=== PATIENT | female | born 1965 | race Caucasian/White ===

== ENCOUNTER 2016-05-13 15:13 | Emergency (ER) | payer OTHER ==
[2016-05-13 15:22] VITALS: RESP 18
[2016-05-13] MEDS ORDERED: diphenhydrAMINE 50 MG/ML 1 ML VIAL IVP STA (16:22)
[2016-05-13] MEDS ORDERED: SODIUM CHLORIDE 0.9% 1,000 ML IV STA (16:22)
[2016-05-13] MEDS ORDERED: MECLIZINE 12.5 MG TAB PO STA (16:22)
[2016-05-13] MEDS ORDERED: SODIUM CHLORIDE 0.9% 1,000 ML IV ONE (16:27)
--- NOTE | 2016-05-13 16:54 | ED ---
Dizziness HPI - General Chief Complaint: Dizziness Stated Complaint: Vertigo Time Seen by Provider: 05/13/16 16:09 Source: patient, RN notes reviewed, old records reviewed Mode of arrival: wheelchair Limitations: no limitations - History of Present Illness Initial Comments: Patient is a 50-year-old female presenting to the with chief complaint of vertigo-like dizziness for approximately 2 days. Patient reports that with certain movements she feels like the room is spinning. Patient reports that this is happened before. She reports that she took her meclizine however symptoms continue to persist. Patient has past medical history for hypertension , diabetes. She reports she can feel nauseated with the vertigo. She states she has not seen an ENT specialist. She reports some fullness in her ears and sinus congestion. She denies fever, chills, vomiting, chest pain, shortness of breath , changes in bowel or bladder habits. Patient denies ear pain, decreased hearing , sensitivity to light, headache. - Related Data Home Medications Medication Instructions Recorded Confirmed ALPRAZolam [Xanax] 2 mg PO BID PRN 05/13/16 05/13/16 Albuterol Inhaler [Ventolin Hfa 1 - 2 puff INHALATION Q6HR PRN 05/13/16 05/13/16 Inhaler] Cetirizine HCl [Zyrtec] 10 mg PO DAILY 05/13/16 05/13/16 Ergocalciferol (Vitamin D2) 50,000 unit PO Q7D 05/13/16 05/13/16 [Vitamin D2] FLUoxetine HCL [PROzac] 20 mg PO BID 05/13/16 05/13/16 Fluticasone Nasal [place] [Flonase 2 spr EA NOSTRIL DAILY 05/13/16 05/13/16 Nasal [place]] Glimepiride [Amaryl] 1 mg PO DAILY 05/13/16 05/13/16 HYDROcodone/APAP 10-325MG [[place] 1 tab PO TID 05/13/16 05/13/16 10-325] Ipratropium [place] [Atrovent Hfa] 2 puff INHALATION RT-QID 05/13/16 05/13/16 Losartan/Hydrochlorothiazide 1 tab PO DAILY 05/13/16 05/13/16 [Hyzaar 100-12.5 Tablet] Meclizine [Antivert] 25 mg PO DAILY PRN 05/13/16 05/13/16 Methocarbamol [Robaxin] 1,500 mg PO DAILY PRN 05/13/16 05/13/16 Naproxen 1,000 mg PO Q12HR PRN 05/13/16 05/13/16 Nicotine [Nicoderm Cq] 1 patch TRANSDERM DAILY 05/13/16 05/13/16 Nystatin [Nystop] 1 applic TOPICAL BID PRN 05/13/16 05/13/16 Omeprazole [PriLOSEC] 20 mg PO DAILY 05/13/16 05/13/16 Oxybutynin Chloride [Ditropan] 5 mg PO BID PRN 05/13/16 05/13/16 Prochlorperazine [Compazine] 5 mg PO Q8HR PRN 05/13/16 05/13/16 QUEtiapine [SEROquel] 400 mg PO HS 05/13/16 05/13/16 Ranitidine HCl [Zantac] 150 mg PO BID 05/13/16 05/13/16 Rivaroxaban [Xarelto] 15 mg PO DAILY 05/13/16 05/13/16 Rizatriptan Benzoate [Maxalt] 10 mg PO Q48H PRN 05/13/16 05/13/16 Topiramate 100 mg PO DAILY 05/13/16 05/13/16 buPROPion SR [Wellbutrin Sr] 150 mg PO BID 05/13/16 05/13/16 busPIRone HCL 15 mg PO BID 05/13/16 05/13/16 metFORMIN HCL [Glucophage] 850 mg PO TID 05/13/16 05/13/16 rOPINIRole HCL [Requip] 0.25 mg PO HS 05/13/16 05/13/16 Previous Rx's Medication Instructions Recorded Diazepam [Valium] 5 mg PO BID #4 tab 05/13/16 Loratadine-Pseudoeph 5-120 mg 1 each PO BID #12 tab.er.12h 05/13/16 [Claritin-D 12 HR] diphenhydrAMINE [Benadryl] 25 mg PO QID PRN #12 capsule 05/13/16 Allergies Allergy/AdvReac Type Severity Reaction Status Date / Time RIGO Inhibitors Allergy Unknown Verified 05/13/16 16:14 cephalexin [From Keflex] Allergy Unknown Verified 05/13/16 16:14 cyclobenzaprine Allergy Unknown Verified 05/13/16 16:14 [From Flexeril] dicyclomine [From Bentyl] Allergy Unknown Verified 05/13/16 16:14 gabapentin Allergy Unknown Verified 05/13/16 16:14 ketorolac [From Toradol] Allergy Unknown Verified 05/13/16 16:14 metoclopramide [From Reglan] Allergy Unknown Verified 05/13/16 16:14 ondansetron AdvReac Interacts Verified 05/13/16 16:14 [From Zofran (as with hydrochloride)] Seroquel Ammonia Scent AdvReac Fainting Uncoded 05/13/16 15:25 Review of Systems ROS Statement: Those systems with pertinent positive or pertinent negative responses have been documented in the HPI. ROS Other: All systems not noted in ROS Statement are negative. Past Medical History Past Medical History: Diabetes Mellitus, Hypertension Additional Past Medical History / Comment(s): Vertigo; Migraines History of Any Multi-Drug Resistant Organisms: None Reported Additional Past Surgical History / Comment(s): Oral surgery Past Psychological History: Anxiety, Bipolar, Depression Smoking Status: Current every day smoker Past Alcohol Use History: None Reported Past Drug Use History: None Reported General Exam - General Exam Comments Initial Comments: Patient is a morbidly obese 50 year old female. Limitations: no limitations General appearance: alert, in no apparent distress Head exam: Present: atraumatic, normocephalic, normal inspection Eye exam: Present: normal appearance, PERRL, EOMI, nystagmus (horizontal nystagmus with left lateral gaze. ). Absent: scleral icterus, conjunctival injection, periorbital swelling ENT exam: Present: mucous membranes moist. Absent: normal exam, TM's normal bilaterally (mild fluid in bilateral ears. No evidence of erythema. ) Neck exam: Present: normal inspection. Absent: tenderness, meningismus, lymphadenopathy Respiratory exam: Present: normal lung sounds bilaterally. Absent: respiratory distress, wheezes, rales, rhonchi, stridor Cardiovascular Exam: Present: regular rate, normal rhythm, normal heart sounds. Absent: systolic murmur, diastolic murmur, rubs, gallop, clicks Extremities exam: Present: normal inspection, full ROM, normal capillary refill. Absent: tenderness, pedal edema, joint swelling, calf tenderness Back exam: Present: normal inspection Neurological exam: Present: alert, oriented X3, CN II-XII intact Psychiatric exam: Present: normal affect, normal mood Skin exam: Present: warm, dry, intact, normal color. Absent: rash Course Vital Signs 05/13/16 05/13/16 15:18 19:19 Temperature 97.8 F 97.5 F L Pulse Rate 91 76 Respiratory 18 18 Rate Blood Pressure 143/82 144/79 O2 Sat by Pulse 98 97 Oximetry Medical Decision Making - Medical Decision Making Patient is a 50 year old female with 2 days of vertigo dizziness with certain movements. Patient does have horizontal nystagmus with left lateral gaze. Patient was given IV fluids, benadryl and meclinze. Patient reports that this has helped with her vertigo somewhat and seems to have lessened. Given patients medical history EKG, and labs were obtained and are all negative. CT brain was negative. Patient case discussed with Dr. Jesus. Patient will be discarged with nausea medication, Valium, and a decongestant for her ear pressure and fluid. Patient was instructed on return parameters. Patient understands treatment plan and will comply. Patient also given eNT referral. - Lab Data Result diagrams: 05/13/16 17:16 05/13/16 17:16 Lab Results 05/13/16 05/13/16 05/13/16 Range/Units 17:16 17:16 17:16 WBC 8.6 (3.8-10.6) k/uL RBC 4.41 (3.80-5.40) m/uL Hgb 13.3 (11.4-16.0) gm/dL Hct 39.2 (34.0-46.0) % MCV 89.0 (80.0-100.0) fL MCH 30.1 (25.0-35.0) pg MCHC 33.8 (31.0-37.0) g/dL RDW 13.8 (11.5-15.5) % Plt Count 213 (150-450) k/uL Neutrophils % 67 % Lymphocytes % 25 % Monocytes % 4 % Eosinophils % 3 % Basophils % 0 % Neutrophils # 5.7 (1.3-7.7) k/uL Lymphocytes # 2.1 (1.0-4.8) k/uL Monocytes # 0.4 (0-1.0) k/uL Eosinophils # 0.3 (0-0.7) k/uL Basophils # 0.0 (0-0.2) k/uL PT (9.0-12.0) sec INR (<1.1) APTT (22.0-30.0) sec Sodium 142 (137-145) mmol/L Potassium 3.7 (3.5-5.1) mmol/L Chloride 109 H (98-107) mmol/L Carbon Dioxide 22 (22-30) mmol/L Anion Gap 11 mmol/L BUN 16 (7-17) mg/dL Creatinine 0.90 (0.52-1.04) mg/dL Est GFR (MDRD) Af Amer >60 (>60 ml/min/1.73 sqM) Est GFR (MDRD) Non-Af >60 (>60 ml/min/1.73 sqM) Glucose 108 H (74-99) mg/dL Calcium 9.1 (8.4-10.2) mg/dL Magnesium 1.9 (1.6-2.3) mg/dL Total Creatine Kinase 105 (30-135) U/L CK-MB (CK-2) 1.1 (0.0-2.4) ng/mL CK-MB (CK-2) Rel Index 1.0 Troponin I <0.012 (0.000-0.034) ng/mL 05/13/16 Range/Units 17:16 WBC (3.8-10.6) k/uL RBC (3.80-5.40) m/uL Hgb (11.4-16.0) gm/dL Hct (34.0-46.0) % MCV (80.0-100.0) fL MCH (25.0-35.0) pg MCHC (31.0-37.0) g/dL RDW (11.5-15.5) % Plt Count (150-450) k/uL Neutrophils % % Lymphocytes % % Monocytes % % Eosinophils % % Basophils % % Neutrophils # (1.3-7.7) k/uL Lymphocytes # (1.0-4.8) k/uL Monocytes # (0-1.0) k/uL Eosinophils # (0-0.7) k/uL Basophils # (0-0.2) k/uL PT 10.1 (9.0-12.0) sec INR 1.0 (<1.1) APTT 23.1 (22.0-30.0) sec Sodium (137-145) mmol/L Potassium (3.5-5.1) mmol/L Chloride (98-107) mmol/L Carbon Dioxide (22-30) mmol/L Anion Gap mmol/L BUN (7-17) mg/dL Creatinine (0.52-1.04) mg/dL Est GFR (MDRD) Af Amer (>60 ml/min/1.73 sqM) Est GFR (MDRD) Non-Af (>60 ml/min/1.73 sqM) Glucose (74-99) mg/dL Calcium (8.4-10.2) mg/dL Magnesium (1.6-2.3) mg/dL Total Creatine Kinase (30-135) U/L CK-MB (CK-2) (0.0-2.4) ng/mL CK-MB (CK-2) Rel Index Troponin I (0.000-0.034) ng/mL 05/13/16 17:30 EKG shows normal sinus rhythm. Ventricular rate 76 bpm. We'll give her milliseconds. QRS duration 88 ms. QT/QTc is 422/474 ms. No evidence of ST elevation or T-wave inversion. No evidence of atrial or ventricular arrhythmias. - Radiology Data Radiology results: report reviewed CT of brain shows a parietal lobe atrophy. No evidence of any acute process. No evidence of midline shift. Disposition Clinical Impression: Vertigo Disposition: HOME SELF-CARE Condition: Good Instructions: Dizziness (ED), Vertigo (ED) Additional Instructions: Patient instructed to follow-up with ENT specialist. Follow-up with primary care physician as well. Return to the [facility] if any alarming signs or symptoms occur. Take medications as prescribed. Prescriptions: Diazepam [Valium] 5 mg PO BID #4 tab Loratadine-Pseudoeph 5-120 mg [Claritin-D 12 HR] 1 each PO BID #12 tab.er.12h diphenhydrAMINE [Benadryl] 25 mg PO QID PRN #12 capsule PRN Reason: Vertigo Referrals: Raeann Connelly MD [Primary Care Provider] - 1-2 days Malcom Walter MD [STAFF PHYSICIAN] - 1-2 days Rand Lopez MD [REFERRING] - 1-2 days Time of Disposition: 18:52
[2016-05-13 17:31] LABS: Basophils % (A) 0 %; CH 30.7; CHCM 34.7; Eosinophils # (A) 0.3 k/uL (0-0.7); Eosinophils % (A) 3 %; HCT 39.2 % (34.0-46.0); HDW 2.82; HGB 13.3 gm/dL (11.4-16.0); Luc % (Auto) 1; Lymphocytes # (A) 2.1 k/uL (1.0-4.8); Lymphocytes % (A) 25 %; MCH 30.1 pg (25.0-35.0); MCHC 33.8 g/dL (31.0-37.0); Monocytes # (A) 0.4 k/uL (0-1.0); Monocytes % (A) 4 %; Neutrophils # (A) 5.7 k/uL (1.3-7.7); Neutrophils % (A) 67 %; RBC 4.41 m/uL (3.80-5.40); RDW 13.8 % (11.5-15.5); WBC 8.6 k/uL (3.8-10.6); WBC (Perox) 8.75
[2016-05-13 17:36] LABS: Partial Thromboplastin Time 23.1 sec (22.0-30.0); Prothrombin Time 10.1 sec (9.0-12.0)
[2016-05-13 17:37] LABS: Anion Gap 11 mmol/L; Blood Urea Nitrogen 16 mg/dL (7-17); Calcium 9.1 mg/dL (8.4-10.2); Carbon Dioxide 22 mmol/L (22-30); Chloride 109 mmol/L (98-107); Glucose 108 mg/dL (74-99); Magnesium 1.9 mg/dL (1.6-2.3); Non-African American GFR(MDRD) >60 (>60 ml/min/1.73 sqM); Potassium 3.7 mmol/L (3.5-5.1); Sodium 142 mmol/L (137-145)
--- NOTE | 2016-05-13 17:51 | CT ---
EXAMINATION TYPE: CT brain wo con DATE OF EXAM: 05/13/2016 5:45 PM COMPARISON: NONE HISTORY: Pt states of dizziness today. CT DLP: 1198 mGycm Automated exposure control for dose reduction was used. FINDINGS: There is no mass effect or midline shift. There is no sign of intracranial hemorrhage. Calvarium is i ntact. Ventricles of normal size. There is mild parietal lobe cortical atrophy. IMPRESSION: Parietal lobe cortical atrophy. No acute intracranial abnormality.
[2016-05-13 17:53] LABS: Creatine Kinase 105 U/L (30-135)
[2016-05-13 18:07] LABS: Creatine Kinase MB 1.1 ng/mL (0.0-2.4); Troponin I <0.012 ng/mL (0.000-0.034)
--- NOTE | 2016-05-13 18:16 | XR ---
EXAMINATION TYPE: XR chest 2V DATE OF EXAM: 05/13/2016 6:05 PM COMPARISON: EXAMINATION TYPE: XR chest 2V DATE OF EXAM: 05/13/2016 6:05 PM COMPARISON: NONE HISTORY: Dizziness TECHNIQUE: Frontal and lateral views of the chest are obtained. FINDINGS: Heart and mediastinum are normal. Lungs are clear. Diaphragm is normal. Bony thorax is int act. Pulmonary vascularity is normal. IMPRESSION: Normal chest
[2016-05-13 19:21] VITALS: BP 144/79; PULSE 76; TEMP 97.5
== END 2016-05-13 19:21 | disposition home or self-care (01) ==
LOC: EC 15:13
DX: R42 Dizziness and giddiness (principal); H55.00 Unspecified nystagmus; H93.93 Unspecified disorder of ear, bilateral; E11.9 Type 2 diabetes mellitus without complications; I10 Essential (primary) hypertension; F41.9 Anxiety disorder, unspecified; G43.909 Migraine, unspecified, not intractable, without status migrainosus; F31.9 Bipolar disorder, unspecified; Z79.899 Other long term (current) drug therapy; Z79.51 Long term (current) use of inhaled steroids; Z79.891 Long term (current) use of opiate analgesic; Z79.84 Long term (current) use of oral hypoglycemic drugs; Z79.02 Long term (current) use of antithrombotics/antiplatelets; Z88.1 Allergy status to other antibiotic agents; Z88.8 Allergy status to other drugs, medicaments and biological substances; Z91.048 Other nonmedicinal substance allergy status; F17.200 Nicotine dependence, unspecified, uncomplicated; E66.01 Morbid (severe) obesity due to excess calories; Z68.41 Body mass index [BMI] 40.0-44.9, adult
CPT/HCPCS: 36415; 93005; 80048; 82550; 82553; 83735; 84484; 85025; 85610; 85730; 71020; 70450; 96374; 96361 ×2; 99285; J1200

== ENCOUNTER 2016-08-21 12:29 | Emergency (ER) | payer OTHER ==
[2016-08-21 12:50] VITALS: RESP 18
[2016-08-21 15:19] VITALS: PULSE 88; TEMP 98.8
[2016-08-21] MEDS ORDERED: diphenhydrAMINE 50 MG CAP PO STA (15:33)
[2016-08-21] MEDS ORDERED: MECLIZINE 12.5 MG TAB PO STA (15:34)
--- NOTE | 2016-08-21 15:42 | ED ---
General Adult HPI - General Chief complaint: Neuro Symptoms/Deficit Stated complaint: Tingling sensation on face, headache Time Seen by Provider: 08/21/16 15:11 Source: patient, RN notes reviewed Mode of arrival: wheelchair Limitations: physical limitation - History of Present Illness Initial comments: Patient is a 50-year-old female presents to the emergency room for evaluation of facial tingling. Patient states she woke up this morning with pins and needle sensation over face and head. Patient also states she began having a migraine. Patient states she has a history of migraines. Patient states that she took her normal migraine medication with relief of the headache. Patient states she is having 2 out of 10 headache at this time. Patient states she is still experiencing the tingling sensation. Patient denies weakness. Patient denies changes in vision. Patient denies changes in hearing. Patient denies ringing in ears. Patient states she is dizzy. Patient states she has a history of vertigo. Patient states she took an Antivert this morning when she woke up. Patient does admit to tingling in her fingers but does state that she has peripheral neuropathy from diabetes. Patient denies neck pain. Patient denies chest pain, shortness of breath. Patient denies fevers or chills. Patient denies recent head trauma. Patient denies recent changes in medications. - Related Data Home Medications Medication Instructions Recorded Confirmed ALPRAZolam [Xanax] 2 mg PO BID PRN 05/13/16 08/21/16 Cetirizine HCl [Zyrtec] 10 mg PO DAILY PRN 05/13/16 08/21/16 Ergocalciferol (Vitamin D2) 50,000 unit PO MO 05/13/16 08/21/16 [Vitamin D2] Fluticasone Nasal [place] [Flonase 2 spr EA NOSTRIL DAILY PRN 05/13/16 08/21/16 Nasal [place]] Glimepiride [Amaryl] 1 mg PO W/BRKFST 05/13/16 08/21/16 HYDROcodone/APAP 10-325MG [[place] 1 tab PO TID PRN 05/13/16 08/21/16 10-325] Losartan/Hydrochlorothiazide 1 tab PO DAILY 05/13/16 08/21/16 [Hyzaar 100-12.5 Tablet] Meclizine [Antivert] 25 mg PO TID PRN 05/13/16 08/21/16 Methocarbamol [Robaxin] 1,500 mg PO DAILY PRN 05/13/16 08/21/16 Naproxen 500 mg PO Q12HR PRN 05/13/16 08/21/16 Omeprazole [PriLOSEC] 20 mg PO DAILY 05/13/16 08/21/16 Prochlorperazine [Compazine] 5 mg PO Q6H PRN 05/13/16 08/21/16 QUEtiapine [SEROquel] 400 mg PO HS 05/13/16 08/21/16 Ranitidine HCl [Zantac] 150 mg PO BID 05/13/16 08/21/16 buPROPion SR [Wellbutrin Sr] 300 mg PO HS 05/13/16 08/21/16 metFORMIN HCL [Glucophage] 850 mg PO TID 05/13/16 08/21/16 rOPINIRole HCL [Requip] 0.75 mg PO HS 05/13/16 08/21/16 FLUoxetine HCL [PROzac] 40 mg PO HS 08/21/16 08/21/16 Loperamide HCl [Imodium A-D] 6 mg PO DAILY PRN 08/21/16 08/21/16 Megestrol [Megace] 40 mg PO DAILY PRN 08/21/16 08/21/16 Rizatriptan Benzoate [Maxalt [employer]] 10 mg PO BID PRN 08/21/16 08/21/16 Topiramate [Topamax] 200 mg PO QA 08/21/16 08/21/16 busPIRone HCL [Buspar] 30 mg PO HS 08/21/16 08/21/16 diphenhydrAMINE [Benadryl] 25 mg PO BID PRN 08/21/16 08/21/16 diphenhydrAMINE [Benadryl] 25 mg PO HS 08/21/16 08/21/16 Allergies Allergy/AdvReac Type Severity Reaction Status Date / Time dicyclomine [From Bentyl] Allergy Lip Verified 08/21/16 16:15 Swelling gabapentin Allergy Lip Verified 08/21/16 16:15 Swelling RIGO Inhibitors AdvReac Cold Verified 08/21/16 16:15 Symptoms cephalexin [From Keflex] AdvReac Flu Verified 08/21/16 16:15 Symptoms cyclobenzaprine AdvReac Extreme Verified 08/21/16 16:15 [From Flexeril] Sedation ketorolac [From Toradol] AdvReac Extreme Verified 08/21/16 16:15 Sedation metoclopramide [From Reglan] AdvReac Shivering/Gets Verified 08/21/16 16:15 Extremely Cold ondansetron AdvReac Interacts Verified 08/21/16 16:15 [From Zofran (as with hydrochloride)] Seroquel Ammonia Scent AdvReac Fainting Uncoded 08/21/16 12:50 Review of Systems ROS Statement: Those systems with pertinent positive or pertinent negative responses have been documented in the HPI. ROS Other: All systems not noted in ROS Statement are negative. Past Medical History Past Medical History: Diabetes Mellitus, Hypertension Additional Past Medical History / Comment(s): Vertigo; Migraines History of Any Multi-Drug Resistant Organisms: None Reported Past Surgical History: No Surgical Hx Reported Additional Past Surgical History / Comment(s): Oral surgery Past Psychological History: Anxiety, Bipolar, Depression Smoking Status: Former smoker Past Alcohol Use History: None Reported Past Drug Use History: None Reported General Exam - General Exam Comments Initial Comments: Sitting in exam room, no distress. Limitations: physical limitation General appearance: alert, in no apparent distress Head exam: Present: atraumatic, normocephalic, normal inspection Eye exam: Present: normal appearance ENT exam: Present: normal exam Neck exam: Present: normal inspection Respiratory exam: Present: normal lung sounds bilaterally. Absent: respiratory distress Cardiovascular Exam: Present: regular rate, normal rhythm, normal heart sounds Extremities exam: Present: normal inspection Back exam: Present: normal inspection Neurological exam: Present: alert, oriented X3, CN II-XII intact, normal gait Expanded Patient oriented to: Present: person, place, time Speech: Present: fluid speech Cranial nerves: EOM's Intact: Normal, Facial Sensation: Normal Sensory exam: Upper Extremity Light Touch: Normal, Lower Extremity Light Touch: Normal Motor strength exam: RUE: 5, LUE: 5, RLE: 5, LLE: 5 Eye Response: (4) open spontaneously Motor Response: (6) obeys commands Verbal Response: (5) oriented Psychiatric exam: Present: normal affect, normal mood Skin exam: Present: warm, dry, intact, normal color. Absent: rash Course Vital Signs 08/21/16 08/21/16 08/21/16 12:45 15:16 16:47 Temperature 100.0 F H 98.8 F Pulse Rate 91 88 88 Respiratory 18 18 18 Rate Blood Pressure 129/60 134/69 124/77 O2 Sat by Pulse 97 96 96 Oximetry 08/21/16 17:04 Temperature 98.8 F Pulse Rate 88 Respiratory 18 Rate Blood Pressure 124/77 O2 Sat by Pulse 96 Oximetry Medical Decision Making - Medical Decision Making Patient is a 50-year-old female presents to the emergency room for evaluation of facial tingling. Patient was complaining of a migraine headache earlier but states that has subsided. Patient also complaining of dizziness. Patient has a history of vertigo. Patient was given Antivert states she is feeling better. Patient has no neuro deficits. Patient has no facial weakness. Patient has no unilateral weakness. Brain CT shows no acute findings. Patient states she is now feeling better and would like to be discharged home. Advised to follow- up with primary care provider for reevaluation. Patient states she understands everything that was discussed with her. Return parameters discussed. Case discussed with Dr. Pham. - Radiology Data Radiology results: report reviewed, image reviewed Disposition Clinical Impression: Facial paresthesia Disposition: HOME SELF-CARE Condition: Good Instructions: Paresthesia (ED) Additional Instructions: Continue with at home medications as needed. Please follow up with primary care provider in 1-2 days for reevaluation. If any new symptom arises or symptoms worsen, return to ER as soon as possible. Referrals: Rand Lopez MD [Primary Care Provider] - 1-2 days Time of Disposition: 16:46
--- NOTE | 2016-08-21 16:18 | CT ---
EXAMINATION TYPE: CT brain wo con DATE OF EXAM: 08/21/2016 3:58 PM COMPARISON: 05/13/2016 HISTORY: 50-year-old female with tingling in face and migraine. TECHNIQUE: Examination was done in axial plane without intravenous contrast. Coronal and sagittal r econstructions performed. CT DLP: 1122.00 mGycm Automated exposure control for dose reduction was used. FINDINGS: Redemonstrated moderate cortical atrophy secondary sulcal prominence. Mild ventricular prominence is also unchanged likely reflecting central cerebral volume loss. A 1.3 cm extra-axial area of nodular calcification along the superior right parietal convexity could represent dystrophic dural calcification or a meningioma. There is no evidence of acute intracranial hemorrhage, acute ischemic changes, mass effect, or extra -axial fluid collection. There is no effacement of cerebral sulci or basal subarachnoid cisterns. T here is no hydrocephalus. There is no midline shift. Ramos-white matter distinction is preserved. A 1 cm left paramedian superior frontal scalp lesion is unchanged and can be correlated clinically. Mild mucosal thickening left ethmoid air cells. Leftward nasal septal deviation. Orbits and globes ar e intact. Mastoid air cells well pneumatized. IMPRESSION: 1. No acute intracranial abnormality seen. Stable moderate atrophy with secondary sulcal prominence. 2. Stable 1.3 cm extra-axial calcification along the superior right parietal convexity could represen t dystrophic dural calcification or a small incidental meningioma. 3. A 1 cm left paramedian superior frontal scalp lesion is unchanged and may represent a sebaceous cy st. Clinical correlate.
[2016-08-21 16:49] VITALS: BP 124/77
== END 2016-08-21 17:05 | disposition home or self-care (01) ==
LOC: EC 12:29
DX: R20.2 Paresthesia of skin (principal); R51 Headache; R42 Dizziness and giddiness; E11.40 Type 2 diabetes mellitus with diabetic neuropathy, unspecified; I10 Essential (primary) hypertension; F31.9 Bipolar disorder, unspecified; Z86.69 Personal history of other diseases of the nervous system and sense organs; Z87.891 Personal history of nicotine dependence; Z88.1 Allergy status to other antibiotic agents; Z88.5 Allergy status to narcotic agent; Z88.8 Allergy status to other drugs, medicaments and biological substances; Z79.84 Long term (current) use of oral hypoglycemic drugs; Z79.899 Other long term (current) drug therapy
CPT/HCPCS: 70450; 99284

== ENCOUNTER 2016-09-13 14:30 | Emergency (ER) | payer OTHER ==
--- NOTE | 2016-09-13 16:30 | ED ---
General Adult HPI - General Chief complaint: GI Bleed Stated complaint: Blood in stool Time Seen by Provider: 09/13/16 16:15 Source: patient, RN notes reviewed, old records reviewed Mode of arrival: ambulatory Limitations: no limitations - History of Present Illness Initial comments: Chief complaint and history of present illness a 50-year-old female reports that she's had some rectal bleeding after having had a hard stool earlier in the day. No other complaints - Related Data Home Medications Medication Instructions Recorded Confirmed ALPRAZolam [Xanax] 2 mg PO BID PRN 05/13/16 08/21/16 Cetirizine HCl [Zyrtec] 10 mg PO DAILY PRN 05/13/16 08/21/16 Ergocalciferol (Vitamin D2) 50,000 unit PO MO 05/13/16 08/21/16 [Vitamin D2] Fluticasone Nasal [place] [Flonase 2 spr EA NOSTRIL DAILY PRN 05/13/16 08/21/16 Nasal [place]] Glimepiride [Amaryl] 1 mg PO W/BRKFST 05/13/16 08/21/16 HYDROcodone/APAP 10-325MG [[place] 1 tab PO TID PRN 05/13/16 08/21/16 10-325] Losartan/Hydrochlorothiazide 1 tab PO DAILY 05/13/16 08/21/16 [Hyzaar 100-12.5 Tablet] Meclizine [Antivert] 25 mg PO TID PRN 05/13/16 08/21/16 Methocarbamol [Robaxin] 1,500 mg PO DAILY PRN 05/13/16 08/21/16 Naproxen 500 mg PO Q12HR PRN 05/13/16 08/21/16 Omeprazole [PriLOSEC] 20 mg PO DAILY 05/13/16 08/21/16 Prochlorperazine [Compazine] 5 mg PO Q6H PRN 05/13/16 08/21/16 QUEtiapine [SEROquel] 400 mg PO HS 05/13/16 08/21/16 Ranitidine HCl [Zantac] 150 mg PO BID 05/13/16 08/21/16 buPROPion SR [Wellbutrin Sr] 300 mg PO HS 05/13/16 08/21/16 metFORMIN HCL [Glucophage] 850 mg PO TID 05/13/16 08/21/16 rOPINIRole HCL [Requip] 0.75 mg PO HS 05/13/16 08/21/16 FLUoxetine HCL [PROzac] 40 mg PO HS 08/21/16 08/21/16 Loperamide HCl [Imodium A-D] 6 mg PO DAILY PRN 08/21/16 08/21/16 Megestrol [Megace] 40 mg PO DAILY PRN 08/21/16 08/21/16 Rizatriptan Benzoate [Maxalt COMMUNITY SERVICE MANAGER] 10 mg PO BID PRN 08/21/16 08/21/16 Topiramate [Topamax] 200 mg PO QAM 08/21/16 08/21/16 busPIRone HCL [Buspar] 30 mg PO HS 08/21/16 08/21/16 diphenhydrAMINE [Benadryl] 25 mg PO BID PRN 08/21/16 08/21/16 diphenhydrAMINE [Benadryl] 25 mg PO HS 08/21/16 08/21/16 Allergies Allergy/AdvReac Type Severity Reaction Status Date / Time dicyclomine [From Bentyl] Allergy Lip Verified 09/13/16 14:56 Swelling gabapentin Allergy Lip Verified 09/13/16 14:56 Swelling RIGO Inhibitors AdvReac Cold Verified 09/13/16 14:56 Symptoms cephalexin [From Keflex] AdvReac Flu Verified 09/13/16 14:56 Symptoms cyclobenzaprine AdvReac Extreme Verified 09/13/16 14:56 [From Flexeril] Sedation ketorolac [From Toradol] AdvReac Extreme Verified 09/13/16 14:56 Sedation metoclopramide [From Reglan] AdvReac Shivering/Gets Verified 09/13/16 14:56 Extremely Cold ondansetron AdvReac Interacts Verified 09/13/16 14:56 [From Zofran (as with hydrochloride)] Seroquel Ammonia Scent AdvReac Fainting Uncoded 09/13/16 14:56 Review of Systems ROS Statement: Those systems with pertinent positive or pertinent negative responses have been documented in the HPI. Review of systems no complaint of headache chest pain shortness of breath no problems or GI problems include what appears to be a fissure caused by passing hard stool. Afterwards she had loose stool. She does states she gets nauseated when she takes her pills before she eats. She was told neutrophils after she eats. No other complaints this time. Past medical problems significant for bipolar disorder diabetes mellitus, hypertension vertigo migraines. Surgeries include oral surgeries only. Patient has multiple ALLERGIES listed her chart. Currently nonsmoker nondrinker. ROS Other: All systems not noted in ROS Statement are negative. Past Medical History Past Medical History: Diabetes Mellitus, Hypertension Additional Past Medical History / Comment(s): Vertigo; Migraines History of Any Multi-Drug Resistant Organisms: None Reported Past Surgical History: No Surgical Hx Reported Additional Past Surgical History / Comment(s): Oral surgery Past Psychological History: Anxiety, Bipolar, Depression Smoking Status: Current every day smoker Past Alcohol Use History: None Reported Past Drug Use History: None Reported General Exam - General Exam Comments Initial Comments: General: The patient is awake and alert, in no distress, and does not appear acutely ill. Vital signs shows temperature 99.1 pulse 89 respiratory rate 20 pulse ox 96% room air blood pressure 131/75 Gastrointestinal: Patient is morbidly obese weighs 2:30 pounds. Complains of mild nausea but no vomiting. Rectal examination was done with the help of nurse Ignacio. Evidence of a fissure over hemorrhoidal vein. She'll be advised to use medicated tucks. Continue with stool softeners. Follow-up with family physician. Limitations: no limitations Course Vital Signs 09/13/16 14:54 Temperature 99.1 F Pulse Rate 89 Respiratory 20 Rate Blood Pressure 131/75 O2 Sat by Pulse 96 Oximetry Medical Decision Making - Medical Decision Making We discussed the cause of fissures. She had a hard stool and then started bleeding. Stools. Advised to follow-up with family physician. Advised to use hemorrhoidal cream and/or Tucks medicated pads Disposition Clinical Impression: Fissure in ano Disposition: HOME SELF-CARE Instructions: Anal Fissure (ED) Additional Instructions: Use hemorrhoidal cream. Or medicated tuck pads in order to stop the bleeding. Follow-up with family physician. Use stool softeners, stay adequately hydrated. Referrals: Rand Lopez MD [Primary Care Provider] - 1-2 days Time of Disposition: 16:30
[2016-09-13 16:35] VITALS: BP 133/88; PULSE 87; RESP 18; TEMP 97.2
== END 2016-09-13 16:35 | disposition home or self-care (01) ==
LOC: EC 14:30
DX: K60.2 Anal fissure, unspecified (principal); R11.0 Nausea; E11.9 Type 2 diabetes mellitus without complications; I10 Essential (primary) hypertension; F31.9 Bipolar disorder, unspecified; E66.01 Morbid (severe) obesity due to excess calories; Z68.41 Body mass index [BMI] 40.0-44.9, adult; F41.9 Anxiety disorder, unspecified; F17.200 Nicotine dependence, unspecified, uncomplicated; Z79.84 Long term (current) use of oral hypoglycemic drugs; Z79.899 Other long term (current) drug therapy; Z88.1 Allergy status to other antibiotic agents; Z88.6 Allergy status to analgesic agent; Z88.8 Allergy status to other drugs, medicaments and biological substances
CPT/HCPCS: 99284

== ENCOUNTER → 2017-05-17 | Outpatient (CLI) | payer OTHER ==
--- NOTE | 2017-05-18 11:24 | MM ---
Reason for exam: screening (asymptomatic). Last mammogram was performed 3 years and 11 months ago. History: Patient history of other cancer. Physical Findings: A clinical breast exam by your physician is recommended on an annual basis and results should be correlated with mammographic findings. MG Screening Mammo w CAD Bilateral CC and MLO view(s) were taken. Prior study comparison: June 24, 2013, bilateral digital screening mammo w/CAD. The breast tissue is almost entirely fat. There is no discrete abnormality. No significant changes when compared with prior studies. ASSESSMENT: Negative, BI-RAD 1 RECOMMENDATION: Routine screening mammogram of both breasts in 1 year.
--- NOTE | 2017-05-18 22:04 | BD ---
EXAMINATION TYPE: MG DEXA axial skeleton. DATE OF EXAM: 05/17/2017 COMPARISON: NONE CLINICAL HISTORY: Height: 69.5 IN Weight: 325.6 LBS FRAX RISK QUESTIONS: Alcohol (3 or more units per day): NO Family History (Parent hip fracture): NO Glucocorticoids (More than 3mos): NO (Ex: prednisone, prednisolone, methylprednisolone, dexamethasone, and hydrocortisone). History of Fracture in Adulthood: NO Secondary Osteoporosis: 1. Type 1 Diabetes: NO 2. Hyperthyroidism: NO 3. Menopause before 45: YES AGE 43 4. Malnutrition: NO 5. Chronic liver disease: NO Rheumatoid Arthritis: NO Current Tobacco Use: NO RISK FACTORS HISTORY OF: Active: MINIMAL TO MODERATE Postmenopausal woman: AGE 43 Take estrogen and/or progesterone medications: NOT NOW How long: CONTROL AGE 13 - 43 Lost more than 2 inches in height since high school: YES 4" MEDICATIONS: Additional Medications: VIT D, PHYSIATRIC MEDS, PAIN MEDS,ACID REFLUX MEDS, BLOOD PRESSURE MEDS, BLOO D SUGAR MEDS, MEGACE, MIGRAINE MEDS, EXAM MEASUREMENTS: Bone mineral densitometry was performed using the [employer] System. Bone mineral density as measured about the Lumbar spine is: ----- L1-L4(G/cm2): 1.531 T Score Values are as follows: ----- L2: 4.6 ----- L3: 2.6 ----- L4: 1.3 ----- L1-L4: 2.9 Bone mineral density BASELINE Bone mineral density about the R hip (g/cm2): 0.929 Bone mineral density about the L hip (g/cm2): 0.934 T Score values are as follows: -----R Neck: -0.8 -----L Neck: -0.7 -----R Total: 0.0 -----L Total: 0.0 Bone mineral density BASELINE IMPRESSION: Normal (Values between +1 and -1 indicate normal bone mass). Consider repeating this study in 5 year s or sooner if there is some new clinical indication. NOTE: T-SCORE=SD OF THE YOUNG ADULT MEAN.
== END | disposition home or self-care (01) ==
LOC: RADMAMWWP 08:34
PROVIDERS: ATTEND Obstetrics & Gynecology
DX: Z12.31 Encounter for screening mammogram for malignant neoplasm of breast (principal); Z13.820 Encounter for screening for osteoporosis
CPT/HCPCS: 77067; 77080

== ENCOUNTER 2018-05-21 04:38 | Emergency (ER) | payer OTHER ==
--- NOTE | 2018-05-21 04:45 | ED ---
General Adult HPI - General Stated complaint: FALL Time Seen by Provider: 05/21/18 04:45 - History of Present Illness Initial comments: Anat is a 52-year-old female with extensive psychiatric history who lives in a retirement she presents the emergency department this morning for evaluation of head injury and syncopal episode. Patient reports that she had stopped taking her psychiatric medications including Seroquel and Wellbutrin for approximately the past month. She reports that she did both of them last night before going to bed. She woke early this morning and ambulated to the restroom where she urinated. She reports she didn't stood from the toilet in immediately had a syncopal episode. Patient doesn't recall any chest pain palpitations or shortness of breath prior to the event. Patient reports that previously when taking his medication she's experienced frequent lightheadedness but never had syncope in the past. Patient reports that she woke up nearly immediately she noticed she was on the floor she called for help and caregiver evaluated her but due to the patient's size was unable to assist her to her feet so EMS was contacted for lift assist and transported to the hospital. Patient did note that she had abrasions to both her knees but was able to stand with assistance and ambulate. She does not recall when her last tetanus vaccine was and is agreeable to tetanus vaccination today - Related Data Home Medications Medication Instructions Recorded Confirmed Cetirizine HCl [Zyrtec] 10 mg PO DAILY PRN 05/13/16 05/21/18 Ergocalciferol (Vitamin D2) 50,000 unit PO NICOLE 05/13/16 05/21/18 [Vitamin D2] Fluticasone Nasal [place] [Flonase 2 spr EA NOSTRIL DAILY PRN 05/13/16 05/21/18 Nasal [place]] Glimepiride [Amaryl] 1 mg PO BID 05/13/16 05/21/18 Losartan/Hydrochlorothiazide 1 tab PO DAILY 05/13/16 05/21/18 [Hyzaar 100-12.5 Tablet] Meclizine [Antivert] 25 mg PO TID PRN 05/13/16 05/21/18 Methocarbamol [Robaxin] 750 mg PO BID 05/13/16 05/21/18 Omeprazole [PriLOSEC] 20 mg PO BID 05/13/16 05/21/18 Prochlorperazine [Compazine] 5 mg PO Q6H PRN 05/13/16 05/21/18 QUEtiapine [SEROquel] 200 mg PO HS 05/13/16 05/21/18 Ranitidine HCl [Zantac] 150 mg PO BID 05/13/16 05/21/18 buPROPion SR [Wellbutrin Sr] 150 mg PO HS 05/13/16 05/21/18 metFORMIN HCL [Glucophage] 850 mg PO TID 05/13/16 05/21/18 rOPINIRole HCL [Requip] 0.75 mg PO HS 05/13/16 05/21/18 Loperamide HCl [Imodium A-D] 6 mg PO DAILY PRN 08/21/16 05/21/18 Rizatriptan Benzoate [Maxalt SUPERVISOR PURIFICATION] 10 mg PO BID PRN 08/21/16 05/21/18 Acetaminophen Tab [Tylenol Tab] 1,000 mg PO Q6HR PRN 05/21/18 05/21/18 Albuterol Inhaler [Ventolin Hfa 1 - 2 puff INHALATION RT-Q6H PRN 05/21/18 Inhaler] FLUoxetine HCL [PROzac] 20 mg PO DAILY 05/21/18 05/21/18 Folic Acid 0.8 mg PO DAILY 05/21/18 05/21/18 HYDROcodone/APAP 7.5-325MG [[place] 1 tab PO TID 05/21/18 05/21/18 7.5-325] Oxybutynin Chloride 5 mg PO BID 05/21/18 05/21/18 Pioglitazone [Actos] 15 mg PO DAILY 05/21/18 05/21/18 Topiramate [Topamax] 100 mg PO BID 05/21/18 05/21/18 busPIRone HCL 15 mg PO DAILY 05/21/18 05/21/18 diphenhydrAMINE [Benadryl] 25 mg PO HS 05/21/18 05/21/18 Allergies Allergy/AdvReac Type Severity Reaction Status Date / Time dicyclomine [From Bentyl] Allergy Lip Verified 05/21/18 07:00 Swelling gabapentin Allergy Lip Verified 05/21/18 07:00 Swelling RIGO Inhibitors AdvReac Cold Verified 05/21/18 07:00 Symptoms cephalexin [From Keflex] AdvReac Flu Verified 05/21/18 07:00 Symptoms cyclobenzaprine AdvReac Extreme Verified 05/21/18 07:00 [From Flexeril] Sedation Iodinated Contrast- Oral and AdvReac Unknown Verified 05/21/18 07:00 IV Dye ketorolac [From Toradol] AdvReac Extreme Verified 05/21/18 07:00 Sedation metoclopramide [From Reglan] AdvReac Shivering/Gets Verified 05/21/18 07:00 Extremely Cold ondansetron AdvReac Interacts Verified 05/21/18 07:00 [From Zofran (as with hydrochloride)] Seroquel Ammonia Scent AdvReac Fainting Uncoded 05/21/18 04:48 Review of Systems ROS Statement: Those systems with pertinent positive or pertinent negative responses have been documented in the HPI. ROS Other: All systems not noted in ROS Statement are negative. Past Medical History Past Medical History: Diabetes Mellitus, Hypertension Additional Past Medical History / Comment(s): Vertigo; Migraines History of Any Multi-Drug Resistant Organisms: None Reported Past Surgical History: No Surgical Hx Reported Additional Past Surgical History / Comment(s): Oral surgery Past Psychological History: Anxiety, Bipolar, Depression Smoking Status: Current every day smoker Past Alcohol Use History: None Reported Past Drug Use History: None Reported General Exam - General Exam Comments Initial Comments: GENERAL: Obese female with contusion to the right forehead in no acute distress HENT: Normocephalic, contusion to the right forehead, dried blood in the left naris no septal hematoma Patient noted to have significant male pattern facial hair EYES: The sclera were anicteric and conjunctiva were pink and moist. Extraocular movements were intact and pupils were equal round and reactive to light. Eyelids were unremarkable. PULMONARY: Unlabored respirations CARDIOVASCULAR: There is a regular rate and rhythm without any murmurs gallops or rubs. ABDOMEN: Soft and nontender with normal bowel sounds. SKIN: Abrasions to bilateral knees NEUROLOGIC: Patient is alert and oriented x3. Cranial nerves II through XII are grossly intact. Motor and sensory are also intact. Normal speech, volume and content. Symmetrical smile. MUSCULOSKELETAL: Normal extremities with adequate strength and full range of motion. No lower extremity swelling or edema. No calf tenderness. LYMPHATICS: No significant lymphadenopathy is noted PSYCHIATRIC: Odd childlike affect Limitations: no limitations Course Vital Signs 05/21/18 05/21/18 05/21/18 04:39 06:19 06:55 Temperature 100.5 F H 99.5 F Pulse Rate 85 80 85 Respiratory 18 18 18 Rate Blood Pressure 120/57 108/60 120/67 O2 Sat by Pulse 95 96 95 Oximetry 05/21/18 05/21/18 09:43 09:53 Temperature 98.3 F 98.3 F Pulse Rate 70 70 Respiratory 16 16 Rate Blood Pressure 106/45 106/45 O2 Sat by Pulse 98 98 Oximetry EKG Findings - EKG Comments: EKG Findings:: EKG was obtained at 4:46 AM, rate is 81 rhythm is sinus there is normal axis, normal intervals, NC 142, he received 6, QTC 473. There are no acute ST elevations or depressions there is no evidence of acute ischemia or infarction or arrhythmia. Medical Decision Making - Medical Decision Making Patient was seen and evaluated, history was obtained from the patient. He is a 52-year-old female who upon her own accord resumed anti-psychotic medications yesterday evening after having not taken them for over a month. These medications have a side effect of lightheadedness. Patient got up this morning and upon standing had a syncopal episode. Patient concerned about pain in her right shoulder, headache Labs and imaging were ordered IV fluids were ordered Labs are unremarkable CT imaging and x-rays with no evidence of injury Patient was reevaluated she reports she's feeling much better. At this time she plans on again discontinuing her medications until she follows up with her primary care All questions pertaining care were answered return parameters were discussed patient was discharged back to her retirement in stable condition - Lab Data Result diagrams: 05/21/18 04:46 05/21/18 04:46 Lab Results 05/21/18 05/21/18 05/21/18 Range/Units 04:45 04:46 04:46 WBC 10.4 (3.8-10.6) k/uL RBC 4.29 (3.80-5.40) m/uL Hgb 13.1 (11.4-16.0) gm/dL Hct 38.2 (34.0-46.0) % MCV 89.1 (80.0-100.0) fL MCH 30.4 (25.0-35.0) pg MCHC 34.1 (31.0-37.0) g/dL RDW 13.7 (11.5-15.5) % Plt Count 195 (150-450) k/uL Neutrophils % 69 % Lymphocytes % 20 % Monocytes % 6 % Eosinophils % 3 % Basophils % 0 % Neutrophils # 7.2 (1.3-7.7) k/uL Lymphocytes # 2.1 (1.0-4.8) k/uL Monocytes # 0.6 (0-1.0) k/uL Eosinophils # 0.3 (0-0.7) k/uL Basophils # 0.0 (0-0.2) k/uL PT (9.0-12.0) sec INR (<1.2) APTT (22.0-30.0) sec Sodium (137-145) mmol/L Potassium (3.5-5.1) mmol/L Chloride (98-107) mmol/L Carbon Dioxide (22-30) mmol/L Anion Gap mmol/L BUN (7-17) mg/dL Creatinine (0.52-1.04) mg/dL Est GFR (CKD-EPI)AfAm (>60 ml/min/1.73 sqM) Est GFR (CKD-EPI)NonAf (>60 ml/min/1.73 sqM) Glucose (74-99) mg/dL POC Glucose (mg/dL) 113 H (75-99) mg/dL POC Glu Entry Level Electrical Engineer ID Montez, Elsi Calcium (8.4-10.2) mg/dL Total Bilirubin (0.2-1.3) mg/dL AST (14-36) U/L ALT (9-52) U/L Alkaline Phosphatase (38-126) U/L Total Creatine Kinase 47 (30-135) U/L CK-MB (CK-2) 0.5 (0.0-2.4) ng/mL CK-MB (CK-2) Rel Index 1.1 Troponin I <0.012 (0.000-0.034) ng/mL Total Protein (6.3-8.2) g/dL Albumin (3.5-5.0) g/dL Urine Color Urine Appearance (Clear) Urine pH (5.0-8.0) Ur Specific [place] (1.001-1.035) Urine Protein (Negative) Urine Glucose (UA) (Negative) Urine Ketones (Negative) Urine Blood (Negative) Urine Nitrite (Negative) Urine Bilirubin (Negative) Urine Urobilinogen (<2.0) mg/dL Ur Leukocyte Esterase (Negative) Urine RBC (0-5) /hpf Urine WBC (0-5) /hpf Urine WBC Clumps (None) /hpf Ur Squamous Epith Cells (0-4) /hpf Urine Bacteria (None) /hpf Urine Mucus (None) /hpf 05/21/18 05/21/18 05/21/18 Range/Units 04:46 04:46 06:14 WBC (3.8-10.6) k/uL RBC (3.80-5.40) m/uL Hgb (11.4-16.0) gm/dL Hct (34.0-46.0) % MCV (80.0-100.0) fL MCH (25.0-35.0) pg MCHC (31.0-37.0) g/dL RDW (11.5-15.5) % Plt Count (150-450) k/uL Neutrophils % % Lymphocytes % % Monocytes % % Eosinophils % % Basophils % % Neutrophils # (1.3-7.7) k/uL Lymphocytes # (1.0-4.8) k/uL Monocytes # (0-1.0) k/uL Eosinophils # (0-0.7) k/uL Basophils # (0-0.2) k/uL PT 9.6 (9.0-12.0) sec INR 0.9 (<1.2) APTT 22.5 (22.0-30.0) sec Sodium 139 (137-145) mmol/L Potassium 3.9 (3.5-5.1) mmol/L Chloride 106 (98-107) mmol/L Carbon Dioxide 25 (22-30) mmol/L Anion Gap 8 mmol/L BUN 12 (7-17) mg/dL Creatinine 0.76 (0.52-1.04) mg/dL Est GFR (CKD-EPI)AfAm >90 (>60 ml/min/1.73 sqM) Est GFR (CKD-EPI)NonAf >90 (>60 ml/min/1.73 sqM) Glucose 112 H (74-99) mg/dL POC Glucose (mg/dL) (75-99) mg/dL POC Glu Entry Level Electrical Engineer ID Calcium 9.1 (8.4-10.2) mg/dL Total Bilirubin 0.4 (0.2-1.3) mg/dL AST 17 (14-36) U/L ALT 42 (9-52) U/L Alkaline Phosphatase 75 (38-126) U/L Total Creatine Kinase (30-135) U/L CK-MB (CK-2) (0.0-2.4) ng/mL CK-MB (CK-2) Rel Index Troponin I (0.000-0.034) ng/mL Total Protein 5.9 L (6.3-8.2) g/dL Albumin 3.5 (3.5-5.0) g/dL Urine Color Yellow Urine Appearance Turbid H (Clear) Urine pH 5.5 (5.0-8.0) Ur Specific [place] 1.010 (1.001-1.035) Urine Protein Trace H (Negative) Urine Glucose (UA) Negative (Negative) Urine Ketones Negative (Negative) Urine Blood Trace H (Negative) Urine Nitrite Positive H (Negative) Urine Bilirubin Negative (Negative) Urine Urobilinogen <2.0 (<2.0) mg/dL Ur Leukocyte Esterase Large H (Negative) Urine RBC 1 (0-5) /hpf Urine WBC >182 H (0-5) /hpf Urine WBC Clumps Many H (None) /hpf Ur Squamous Epith Cells 5 H (0-4) /hpf Urine Bacteria Occasional H (None) /hpf Urine Mucus Moderate H (None) /hpf Disposition Clinical Impression: Syncope Disposition: HOME SELF-CARE Condition: Good Instructions (If sedation given, give patient instructions): Syncope (DC) Is patient prescribed a controlled substance at d/c from ED?: No Referrals: Raeann Connelly MD [Primary Care Provider] - 1-2 days
[2018-05-21 04:47] LABS: Glucose,Whole Blood 113 mg/dL (75-99)
--- NOTE | 2018-05-21 05:34 | CT ---
EXAM: CT Head Without Intravenous Contrast CLINICAL HISTORY: Syncope with fall TECHNIQUE: Axial computed tomography images of the head/brain without intravenous contrast. CTDI is 0.085, 0.085, 25.8, 25 mGy and DLP is 1547.4 mGy-cm. This CT exam was performed using one or more of the following dose reduction techniques: automated exposure control, adjustment of the mA and/or kV according to patient size, and/or use of iterative reconstruction technique. COMPARISON: No relevant prior studies available. FINDINGS: Brain: No acute infarct, hemorrhage, mass or edema. No significant white matter disease. Ventricles: Unremarkable. No ventriculomegaly. Bones/joints: Unremarkable. No acute fracture. Soft tissues: Unremarkable. Sinuses: Mild mucosal thickening in the paranasal sinuses. Polyp versus mucous retention cyst within the right maxillary antrum. Mastoid air cells: Unremarkable as visualized. No mastoid effusion. IMPRESSION: No acute findings. EXAM: CT Cervical Spine Without Intravenous Contrast CLINICAL HISTORY: Syncope with fall TECHNIQUE: Axial computed tomography images of the cervical spine without intravenous contrast. CTDI is 0.085, 0.085, 25.8, 25 mGy and DLP is 1547. 4 mGy-cm. This CT exam was performed using one or more of the following dose reduction techniques: automated exposure control, adjustment of the mA and/or kV according to patient size, and/or use of iterative reconstruction technique. COMPARISON: No relevant prior studies available. FINDINGS: Vertebrae: No acute fracture or traumatic malalignment. Discs/spinal canal/neural foramina: No acute findings. No spinal canal stenosis. Soft tissues: Unremarkable. IMPRESSION: No acute findings.
--- NOTE | 2018-05-21 05:43 | CT ---
EXAM: CT Maxillofacial Without Intravenous Contrast CLINICAL HISTORY: syncope, fall, contusion right forehead, nosebleed TECHNIQUE: Axial computed tomography images of the face without intravenous contrast. CTDI is 0.085, 0.085, 25.8, 25 mGy and DLP is 1547.4 mGy-cm. This CT exam was performed using one or more of the following dose reduction techniques: automated exposure control, adjustment of the mA and/or kV according to patient size, and/or use of iterative reconstruction technique. COMPARISON: No relevant prior studies available. FINDINGS: Bones/joints: No acute fracture. Soft tissues: Mild soft tissue swelling noted about the right temporal region. Orbits: Unremarkable. Sinuses: Mild mucosal thickening in the paranasal sinuses. Probable polyp versus mucous retention cysts within the right maxillary antrum. No air-fluid levels. Dental: Edentulous. IMPRESSION: No acute fracture. Mild soft tissue swelling noted about the right temporal region.
--- NOTE | 2018-05-21 05:44 | XR ---
EXAM: XR Chest, 2 Views CLINICAL HISTORY: Syncope TECHNIQUE: Frontal and lateral views of the chest. COMPARISON: Chest x-ray dated 05/13/2016 FINDINGS: Lungs: Unremarkable. No consolidation. Pleural space: Unremarkable. No pneumothorax. Heart: Unremarkable. No cardiomegaly. Mediastinum: Unremarkable. Bones/joints: Unremarkable. IMPRESSION: Normal chest x-rays.
--- NOTE | 2018-05-21 05:45 | XR ---
EXAM: XR Right Shoulder Complete, 2 or More Views CLINICAL HISTORY: Pain TECHNIQUE: Two or more views of the right shoulder. COMPARISON: No relevant prior studies available. FINDINGS: Bones/joints: No acute fracture or traumatic malalignment. Mild degenerative changes of the right acromioclavicular joint. Soft tissues: Unremarkable. IMPRESSION: No acute fracture or traumatic malalignment.
[2018-05-21 06:00] LABS: Basophils % (A) 0 %; Eosinophils # (A) 0.3 k/uL (0-0.7); Eosinophils % (A) 3 %; HCT 38.2 % (34.0-46.0); HGB 13.1 gm/dL (11.4-16.0); Lymphocytes # (A) 2.1 k/uL (1.0-4.8); Lymphocytes % (A) 20 %; MCH 30.4 pg (25.0-35.0); MCHC 34.1 g/dL (31.0-37.0); MCV 89.1 fL (80.0-100.0); Monocytes # (A) 0.6 k/uL (0-1.0); Monocytes % (A) 6 %; Neutrophils # (A) 7.2 k/uL (1.3-7.7); Neutrophils % (A) 69 %; Platelet Count 195 k/uL (150-450); RBC 4.29 m/uL (3.80-5.40); RDW 13.7 % (11.5-15.5); WBC 10.4 k/uL (3.8-10.6)
[2018-05-21 06:17] LABS: ALT 42 U/L (9-52); AST 17 U/L (14-36); Albumin 3.5 g/dL (3.5-5.0); Alkaline Phosphatase 75 U/L (38-126); Anion Gap 8 mmol/L; Blood Urea Nitrogen 12 mg/dL (7-17); Calcium 9.1 mg/dL (8.4-10.2); Carbon Dioxide 25 mmol/L (22-30); Chloride 106 mmol/L (98-107); Glucose 112 mg/dL (74-99); Potassium 3.9 mmol/L (3.5-5.1); Sodium 139 mmol/L (137-145); Total Bilirubin 0.4 mg/dL (0.2-1.3); Total Protein 5.9 g/dL (6.3-8.2)
[2018-05-21 06:25] LABS: Creatine Kinase 47 U/L (30-135)
[2018-05-21 06:36] LABS: INR 0.9 (<1.2); Partial Thromboplastin Time 22.5 sec (22.0-30.0); Prothrombin Time 9.6 sec (9.0-12.0)
[2018-05-21 06:39] LABS: Appearance,Urine Turbid (Clear); Bacteria,Urine Occasional /hpf; Bilirubin,Urine Negative (Negative); Blood,Urine Trace (Negative); Color,Urine Yellow; Glucose,Urine (UA) Negative (Negative); Ketones,Urine Negative (Negative); Leukocyte Esterase,Urine Large (Negative); Mucus,Urine Moderate /hpf; Nitrite,Urine Positive (Negative); PH, Urine 5.5 (5.0-8.0); Protein,Urine Trace (Negative); RBC,Urine 1 /hpf (0-5); Squamous Epithelial Cell,Urine 5 /hpf (0-4); Urobilinogen,Urine <2.0 mg/dL (<2.0)
[2018-05-21 06:39] LABS: Creatine Kinase MB 0.5 ng/mL (0.0-2.4); Troponin I <0.012 ng/mL (0.000-0.034)
[2018-05-21] MEDS ORDERED: SODIUM CHLORIDE 0.9% 1,000 ML IV ONE (06:39)
[2018-05-21] MEDS ORDERED: ACETAMINOPHEN TAB 325 MG TAB PO STA (06:42)
[2018-05-21 09:44] VITALS: BP 106/45; PULSE 70; RESP 16; TEMP 98.3
== END 2018-05-21 09:53 | disposition home or self-care (01) ==
LOC: EC 04:38
DX: R55 Syncope and collapse (principal); S00.83XA Contusion of other part of head, initial encounter; S80.212A Abrasion, left knee, initial encounter; S80.211A Abrasion, right knee, initial encounter; M25.511 Pain in right shoulder; R51 Headache; T43.595A Adverse effect of other antipsychotics and neuroleptics, initial encounter; T43.295A Adverse effect of other antidepressants, initial encounter; I10 Essential (primary) hypertension; E11.9 Type 2 diabetes mellitus without complications; F31.9 Bipolar disorder, unspecified; F41.9 Anxiety disorder, unspecified; F17.200 Nicotine dependence, unspecified, uncomplicated; Z88.1 Allergy status to other antibiotic agents; Z88.6 Allergy status to analgesic agent; Z88.8 Allergy status to other drugs, medicaments and biological substances; Z91.041 Radiographic dye allergy status; Z91.09 Other allergy status, other than to drugs and biological substances; Z79.891 Long term (current) use of opiate analgesic; Z79.84 Long term (current) use of oral hypoglycemic drugs; Z79.899 Other long term (current) drug therapy; Z86.69 Personal history of other diseases of the nervous system and sense organs; X58.XXXA Exposure to other specified factors, initial encounter; Y93.01 Activity, walking, marching and hiking; Y92.199 Unspecified place in other specified residential institution as the place of occurrence of the external cause
CPT/HCPCS: 36415; 70450; 70486; 71046; 72125; 80053; 81001; 82550; 82553; 84484; 85025; 85610; 85730; 87086; 93005; 96360; 96361; 99284

== ENCOUNTER 2018-06-20 10:06 | Emergency (ER) | payer OTHER ==
[2018-06-20 10:16] VITALS: RESP 18; TEMP 99.1
[2018-06-20] MEDS ORDERED: SODIUM CHLORIDE 0.9% 1,000 ML IV STA (10:50)
[2018-06-20 11:22] LABS: Basophils % (A) 0 %; Eosinophils # (A) 0.2 k/uL (0-0.7); Eosinophils % (A) 2 %; HCT 39.9 % (34.0-46.0); HGB 13.2 gm/dL (11.4-16.0); Lymphocytes # (A) 1.8 k/uL (1.0-4.8); Lymphocytes % (A) 16 %; MCH 29.9 pg (25.0-35.0); MCHC 33.1 g/dL (31.0-37.0); MCV 90.4 fL (80.0-100.0); Mean Platelet Volume 7.7; Monocytes # (A) 0.5 k/uL (0-1.0); Monocytes % (A) 5 %; Neutrophils # (A) 8.6 k/uL (1.3-7.7); Neutrophils % (A) 77 %; Platelet Count 265 k/uL (150-450); RBC 4.42 m/uL (3.80-5.40); RDW 13.8 % (11.5-15.5); WBC 11.2 k/uL (3.8-10.6)
--- NOTE | 2018-06-20 11:29 | ED ---
Weakness HPI - General Chief complaint: Recheck/Abnormal Lab/Rx Stated complaint: Numbness Source: EMS, RN notes reviewed, old records reviewed Mode of arrival: EMS Limitations: no limitations - History of Present Illness Initial comments: This is a 52-year-old female the ER for evaluation. She presents today for evaluation regards to facial numbness tingling body tingling and weakness. Patient denies any other significant complaint, she does have a history of similar complaints. No recent change in medication. No headache no chest pain or shortness of breath. No nausea vomiting or diarrhea - Related Data Home Medications Medication Instructions Recorded Confirmed Ergocalciferol (Vitamin D2) 50,000 unit PO NICOLE 05/13/16 06/20/18 [Vitamin D2] Fluticasone Nasal [place] [Flonase 2 spr EA NOSTRIL DAILY PRN 05/13/16 06/20/18 Nasal [place]] Losartan/Hydrochlorothiazide 1 tab PO DAILY 05/13/16 06/20/18 [Hyzaar 100-12.5 Tablet] Meclizine [Antivert] 25 mg PO TID PRN 05/13/16 06/20/18 Methocarbamol [Robaxin] 750 mg PO BID PRN 05/13/16 06/20/18 Omeprazole [PriLOSEC] 20 mg PO BID 05/13/16 06/20/18 Prochlorperazine [Compazine] 5 mg PO TID PRN 05/13/16 06/20/18 QUEtiapine [SEROquel] 200 mg PO HS 05/13/16 06/20/18 Ranitidine HCl [Zantac] 150 mg PO BID 05/13/16 06/20/18 buPROPion SR [Wellbutrin Sr] 150 mg PO DAILY 05/13/16 06/20/18 metFORMIN HCL [Glucophage] 850 mg PO TID 05/13/16 06/20/18 rOPINIRole HCL [Requip] 0.75 mg PO HS 05/13/16 06/20/18 Loperamide HCl [Imodium A-D] 6 mg PO DAILY PRN 08/21/16 06/20/18 Rizatriptan Benzoate [Maxalt FRAME RUNNER] 10 mg PO BID PRN 08/21/16 06/20/18 Acetaminophen Tab [Tylenol Tab] 1,500 mg PO Q8H PRN 05/21/18 06/20/18 Albuterol Inhaler [Ventolin Hfa 1 - 2 puff INHALATION RT-Q6H PRN 05/21/18 Inhaler] FLUoxetine HCL [PROzac] 20 mg PO DAILY 05/21/18 06/20/18 Folic Acid 0.8 mg PO DAILY 05/21/18 06/20/18 HYDROcodone/APAP 7.5-325MG [[place] 1 tab PO TID 05/21/18 06/20/18 7.5-325] Oxybutynin Chloride 5 mg PO BID 05/21/18 06/20/18 Pioglitazone [Actos] 15 mg PO DAILY 05/21/18 06/20/18 Topiramate [Topamax] 100 mg PO BID 05/21/18 06/20/18 busPIRone HCL 15 mg PO DAILY 05/21/18 06/20/18 diphenhydrAMINE [Benadryl] 25 mg PO HS 05/21/18 06/20/18 Glimepiride [Amaryl] 4 mg PO BID 06/20/18 06/20/18 Naproxen 500 mg PO DAILY PRN 06/20/18 06/20/18 Allergies Allergy/AdvReac Type Severity Reaction Status Date / Time dicyclomine [From Bentyl] Allergy Lip Verified 06/20/18 10:51 Swelling gabapentin Allergy Lip Verified 06/20/18 10:51 Swelling RIGO Inhibitors AdvReac Cold Verified 06/20/18 10:51 Symptoms cephalexin [From Keflex] AdvReac Flu Verified 06/20/18 10:51 Symptoms cyclobenzaprine AdvReac Extreme Verified 06/20/18 10:51 [From Flexeril] Sedation Iodinated Contrast- Oral and AdvReac Unknown Verified 06/20/18 10:51 IV Dye ketorolac [From Toradol] AdvReac Extreme Verified 06/20/18 10:51 Sedation metoclopramide [From Reglan] AdvReac Shivering/Gets Verified 06/20/18 10:51 Extremely Cold ondansetron AdvReac Interacts Verified 06/20/18 10:51 [From Zofran (as with hydrochloride)] Seroquel Ammonia Scent AdvReac Fainting Uncoded 05/21/18 04:48 Review of Systems ROS Statement: Those systems with pertinent positive or pertinent negative responses have been documented in the HPI. ROS Other: All systems not noted in ROS Statement are negative. Past Medical History Past Medical History: Diabetes Mellitus, Hypertension Additional Past Medical History / Comment(s): Vertigo; Migraines History of Any Multi-Drug Resistant Organisms: None Reported Past Surgical History: No Surgical Hx Reported Additional Past Surgical History / Comment(s): Oral surgery Past Psychological History: Anxiety, Bipolar, Depression Smoking Status: Current every day smoker Past Alcohol Use History: None Reported Past Drug Use History: None Reported General Exam Limitations: no limitations General appearance: alert, in no apparent distress Head exam: Present: atraumatic, normocephalic, normal inspection Eye exam: Present: normal appearance, PERRL, EOMI. Absent: scleral icterus, conjunctival injection, periorbital swelling ENT exam: Present: normal exam, mucous membranes moist Neck exam: Present: normal inspection. Absent: tenderness, meningismus, lymphadenopathy Respiratory exam: Present: normal lung sounds bilaterally. Absent: respiratory distress, wheezes, rales, rhonchi, stridor Cardiovascular Exam: Present: regular rate, normal rhythm, normal heart sounds. Absent: systolic murmur, diastolic murmur, rubs, gallop, clicks GI/Abdominal exam: Present: soft, normal bowel sounds. Absent: distended, tenderness, guarding, rebound, rigid Extremities exam: Present: normal inspection, full ROM, normal capillary refill. Absent: tenderness, pedal edema, joint swelling, calf tenderness Back exam: Present: normal inspection Neurological exam: Present: alert, oriented X3, CN II-XII intact Psychiatric exam: Present: normal affect, normal mood Skin exam: Present: warm, dry, intact, normal color. Absent: rash Course Vital Signs 06/20/18 10:10 Temperature 99.1 F Pulse Rate 87 Respiratory 18 Rate Blood Pressure 137/58 O2 Sat by Pulse 97 Oximetry - Reevaluation(s) Reevaluation #1: 06/20/18 13:03 Medical record is reviewed Reevaluation #2: 06/20/18 13:03 Patient given potassium Potassium, without significant complaint EKG Findings - EKG Comments: EKG Findings:: EKG shows NSR rate of 86 ND 148 QRS 104 QTc 507 Medical Decision Making - Medical Decision Making 52 female the ER with nonspecific paresthesia-type symptoms. CT negative labwork is essentially negative, patient can be discharged home - Lab Data Result diagrams: 06/20/18 11:10 06/20/18 11:10 Lab Results 06/20/18 06/20/18 06/20/18 Range/Units 11:10 11:10 11:10 WBC 11.2 H (3.8-10.6) k/uL RBC 4.42 (3.80-5.40) m/uL Hgb 13.2 (11.4-16.0) gm/dL Hct 39.9 (34.0-46.0) % MCV 90.4 (80.0-100.0) fL MCH 29.9 (25.0-35.0) pg MCHC 33.1 (31.0-37.0) g/dL RDW 13.8 (11.5-15.5) % Plt Count 265 (150-450) k/uL Neutrophils % 77 % Lymphocytes % 16 % Monocytes % 5 % Eosinophils % 2 % Basophils % 0 % Neutrophils # 8.6 H (1.3-7.7) k/uL Lymphocytes # 1.8 (1.0-4.8) k/uL Monocytes # 0.5 (0-1.0) k/uL Eosinophils # 0.2 (0-0.7) k/uL Basophils # 0.0 (0-0.2) k/uL Sodium 140 (137-145) mmol/L Potassium 3.3 L (3.5-5.1) mmol/L Chloride 109 H (98-107) mmol/L Carbon Dioxide 20 L (22-30) mmol/L Anion Gap 11 mmol/L BUN 12 (7-17) mg/dL Creatinine 0.84 (0.52-1.04) mg/dL Est GFR (CKD-EPI)AfAm >90 (>60 ml/min/1.73 sqM) Est GFR (CKD-EPI)NonAf 80 (>60 ml/min/1.73 sqM) Glucose 240 H (74-99) mg/dL Calcium 9.0 (8.4-10.2) mg/dL Phosphorus 3.7 (2.5-4.5) mg/dL Magnesium 1.7 (1.6-2.3) mg/dL Total Bilirubin 0.4 (0.2-1.3) mg/dL AST 17 (14-36) U/L ALT 22 (9-52) U/L Alkaline Phosphatase 73 (38-126) U/L Troponin I <0.012 (0.000-0.034) ng/mL Total Protein 5.9 L (6.3-8.2) g/dL Albumin 3.5 (3.5-5.0) g/dL - Radiology Data Radiology results: report reviewed (CT brain is negative for acute disease), image reviewed Disposition Clinical Impression: Paresthesia, Hypokalemia Disposition: HOME SELF-CARE Condition: Good Instructions (If sedation given, give patient instructions): Paresthesia (ED) Is patient prescribed a controlled substance at d/c from ED?: No Referrals: Raeann Connelly MD [Primary Care Provider] - 1-2 days
[2018-06-20 11:30] LABS: ALT 22 U/L (9-52); AST 17 U/L (14-36); Albumin 3.5 g/dL (3.5-5.0); Alkaline Phosphatase 73 U/L (38-126); Anion Gap 11 mmol/L; Blood Urea Nitrogen 12 mg/dL (7-17); Carbon Dioxide 20 mmol/L (22-30); Chloride 109 mmol/L (98-107); Glucose 240 mg/dL (74-99); Magnesium 1.7 mg/dL (1.6-2.3); Phosphorus 3.7 mg/dL (2.5-4.5); Potassium 3.3 mmol/L (3.5-5.1); Sodium 140 mmol/L (137-145); Total Bilirubin 0.4 mg/dL (0.2-1.3); Total Protein 5.9 g/dL (6.3-8.2)
--- NOTE | 2018-06-20 11:39 | CT ---
EXAMINATION TYPE: CT brain wo con DATE OF EXAM: 06/20/2018 COMPARISON: 05/21/2018 INDICATION: Bilateral facial numbness DLP: 1090.4 mGycm, Automated exposure control for dose reduction was used. CONTRAST: None CT of the brain is performed utilizing 3 mm thick sections through the posterior fossa and 3 mm thick sections through the remaining calvarium. Study is performed within 24 hours of arrival to the hosp [facility]. No abnormal hyperdensity is present to suggest an acute intracranial hemorrhage. No mass lesion is evident. No acute infarcts are evident. Ventricles and sulci are prominent for the patient age. Paranasal sinuses and mastoid air cells within the [id number] are clear. There are some scattered posterior inner calvarial calcifications. This could be related to meningiom a. Hyperostosis could be considered. Additional calcification is along the right temporal region. Jah e mild hyperostosis frontalis internus may be present. There is a subcutaneous nodule along the frontal region midline measuring 1.3 x 0.6 cm. Correlate for sebaceous cyst. Series 201 image 42 IMPRESSIONS: 1. Atrophy 2. Suspected sebaceous cyst frontal region subcutaneous tissue 3. Examination is stable from 05/21/2018.
[2018-06-20] MEDS ORDERED: POTASSIUM BICARBONATE/CIT AC 20 MEQ TABLET.EFF PO STA (12:02)
[2018-06-20 13:30] VITALS: BP 121/52; PULSE 82
== END 2018-06-20 14:10 | disposition home or self-care (01) ==
LOC: EC 10:06
DX: E87.6 Hypokalemia (principal); R20.2 Paresthesia of skin; R53.1 Weakness; F41.9 Anxiety disorder, unspecified; F31.9 Bipolar disorder, unspecified; E11.9 Type 2 diabetes mellitus without complications; I10 Essential (primary) hypertension; F17.200 Nicotine dependence, unspecified, uncomplicated; Z79.84 Long term (current) use of oral hypoglycemic drugs; Z79.891 Long term (current) use of opiate analgesic; Z79.899 Other long term (current) drug therapy; Z88.1 Allergy status to other antibiotic agents; Z88.6 Allergy status to analgesic agent; Z88.8 Allergy status to other drugs, medicaments and biological substances; Z91.041 Radiographic dye allergy status; Z91.048 Other nonmedicinal substance allergy status
CPT/HCPCS: 36415; 70450; 80053; 83735; 84100; 84484; 85025; 93005; 96360; 96361; 99285

== ENCOUNTER 2018-09-20 17:40 | Emergency (ER) | payer OTHER ==
[2018-09-20] MEDS ORDERED: SODIUM CHLORIDE 0.9% 1,000 ML IV ONE (18:28)
[2018-09-20] MEDS ORDERED: MORPHINE SULFATE 2 MG/ML SYRINGE IVP STA (18:34)
--- NOTE | 2018-09-20 18:34 | ED ---
General Adult HPI - General Chief complaint: Neuro Symptoms/Deficit Stated complaint: Migraine, Facial tingling Time Seen by Provider: 09/20/18 18:03 Source: patient, EMS Mode of arrival: EMS Limitations: no limitations - History of Present Illness Initial comments: 52-year-old female patient presents to the emergency department today for evaluation of tingling to her face. Patient states that her entire face is tingly. Patient states that she was cleaning earlier in the day, states that she did mix 3, cause together and began to experience facial tingling after this. Patient states that she is also developed a migraine headache. Patient states that she has had migraines in the past. Patient states she does have some light sensitivity. Denies any nausea or vomiting. States the headache is frontal. Denies any blurred or double vision. Denies numbness or tingling to her extremities. States that she does have a history of migraines in her symptoms are consistent with her usual migraine pattern. States she does take Maxalt at home for an abortive medication, but has not taken it today. Patient states that she has had tingling to her face the past with low potassium levels and she would like this checked. She is also reporting increased low back pain. Patient states she has been moving furniture around her house for an inspection and believes she overdid it. Patient states she is having pain across her lower back. States is radiating down both legs. States this is consistent with her usual chronic back pain with. She denies any new symptoms. Patient denies any recent rash, fever, chills, shortness breath, chest pain, abdominal pain, diarrhea, constipation, dizziness, weakness, hematuria, dysuria, urinary urgency, urinary frequency, headache, or any other complaints. - Related Data Home Medications Medication Instructions Recorded Confirmed Ergocalciferol (Vitamin D2) 50,000 unit PO NICOLE 05/13/16 09/20/18 [Vitamin D2] Fluticasone Nasal [place] [Flonase 2 spr EA NOSTRIL DAILY PRN 05/13/16 09/20/18 Nasal [place]] Losartan/Hydrochlorothiazide 1 tab PO DAILY 05/13/16 09/20/18 [Hyzaar 100-12.5 Tablet] Meclizine [Antivert] 25 mg PO TID PRN 05/13/16 09/20/18 Methocarbamol [Robaxin] 750 mg PO BID PRN 05/13/16 09/20/18 Omeprazole [PriLOSEC] 20 mg PO BID 05/13/16 09/20/18 Prochlorperazine [Compazine] 5 mg PO TID PRN 05/13/16 09/20/18 Ranitidine HCl [Zantac] 150 mg PO BID 05/13/16 09/20/18 metFORMIN HCL [Glucophage] 850 mg PO TID 05/13/16 09/20/18 rOPINIRole HCL [Requip] 0.75 mg PO HS 05/13/16 09/20/18 Loperamide HCl [Imodium A-D] 6 mg PO DAILY PRN 08/21/16 09/20/18 Rizatriptan Benzoate [Maxalt MOLD STAMPER] 10 mg PO BID PRN 08/21/16 09/20/18 Acetaminophen Tab [Tylenol Tab] 1,500 mg PO Q8H PRN 05/21/18 09/20/18 Albuterol Inhaler [Ventolin Hfa 1 - 2 puff INHALATION RT-Q6H PRN 05/21/18 09/20/18 Inhaler] Folic Acid 0.8 mg PO DAILY 05/21/18 09/20/18 Oxybutynin Chloride 5 mg PO BID 05/21/18 09/20/18 Pioglitazone [Actos] 15 mg PO DAILY 05/21/18 09/20/18 Topiramate [Topamax] 100 mg PO BID 05/21/18 09/20/18 busPIRone HCL 15 mg PO BID 05/21/18 09/20/18 diphenhydrAMINE [Benadryl] 25 mg PO HS 05/21/18 09/20/18 Glimepiride [Amaryl] 4 mg PO BID 06/20/18 09/20/18 Aspirin 81 mg PO DAILY 09/20/18 09/20/18 Atorvastatin Calcium [Lipitor] 10 mg PO HS 09/20/18 09/20/18 Cetirizine HCl [Zyrtec] 10 mg PO DAILY 09/20/18 09/20/18 HYDROcodone/APAP 5-325MG [[place] 1 tab PO BID PRN 09/20/18 09/20/18 5-325] Metoprolol Succinate [Toprol XL] 25 mg PO HS 09/20/18 09/20/18 QUEtiapine FUMARATE [SEROquel] 25 mg PO HS 09/20/18 09/20/18 Allergies Allergy/AdvReac Type Severity Reaction Status Date / Time dicyclomine [From Bentyl] Allergy Lip Verified 09/20/18 18:56 Swelling gabapentin Allergy Lip Verified 09/20/18 18:56 Swelling RIGO Inhibitors AdvReac Cold Verified 09/20/18 18:56 Symptoms cephalexin [From Keflex] AdvReac Flu Verified 09/20/18 18:56 Symptoms cyclobenzaprine AdvReac Extreme Verified 09/20/18 18:56 [From Flexeril] Sedation Iodinated Contrast- Oral and AdvReac Unknown Verified 09/20/18 18:56 IV Dye ketorolac [From Toradol] AdvReac Extreme Verified 09/20/18 18:56 Sedation metoclopramide [From Reglan] AdvReac Shivering/Gets Verified 09/20/18 18:56 Extremely Cold ondansetron AdvReac Interacts Verified 09/20/18 18:56 [From Zofran (as with hydrochloride)] Seroquel Ammonia Scent AdvReac Fainting Uncoded 05/21/18 04:48 Review of Systems ROS Statement: Those systems with pertinent positive or pertinent negative responses have been documented in the HPI. ROS Other: All systems not noted in ROS Statement are negative. Past Medical History Past Medical History: Diabetes Mellitus, Hypertension Additional Past Medical History / Comment(s): Vertigo; Migraines; syncopal epsiodes in the past History of Any Multi-Drug Resistant Organisms: None Reported Past Surgical History: No Surgical Hx Reported Additional Past Surgical History / Comment(s): Oral surgery Past Psychological History: Anxiety, Bipolar, Depression Smoking Status: Former smoker Past Alcohol Use History: None Reported Past Drug Use History: None Reported General Exam Limitations: no limitations General appearance: alert, in no apparent distress, other (This is well- developed, well-nourished adult female patient in no acute distress. Vital signs upon presentation are temperature 99.2F, pulse 74, respirations 18, blood pressure 117/60, pulse ox 97% on room air.) Eye exam: Present: normal appearance, PERRL, EOMI. Absent: scleral icterus, conjunctival injection, periorbital swelling ENT exam: Present: normal exam, normal oropharynx, mucous membranes moist Respiratory exam: Present: normal lung sounds bilaterally. Absent: respiratory distress, wheezes, rales, rhonchi, stridor Cardiovascular Exam: Present: regular rate, normal rhythm, normal heart sounds. Absent: systolic murmur, diastolic murmur, rubs, gallop, clicks GI/Abdominal exam: Present: soft, normal bowel sounds. Absent: distended, tenderness, guarding, rebound, rigid Extremities exam: Present: normal inspection, full ROM, normal capillary refill, other (Skin to the lower extremities is pink, warm, dry. Cap refills less than 3 seconds. Pedal posttibial pulses are 2+ and equal bilaterally.). Absent: tenderness, pedal edema, joint swelling, calf tenderness Back exam: Present: normal inspection. Absent: vertebral tenderness Neurological exam: Present: alert, oriented X3, CN II-XII intact, other (Strength in the upper extremities is 5/5, strength in lower extremities is 4/5.) Psychiatric exam: Present: normal affect, normal mood Skin exam: Present: warm, dry, intact, normal color. Absent: rash Course Vital Signs 09/20/18 09/20/18 09/20/18 17:52 18:00 18:30 Temperature 99.2 F Pulse Rate 74 Respiratory 18 Rate Blood Pressure 117/60 117/60 114/58 O2 Sat by Pulse 97 99 97 Oximetry 09/20/18 09/20/18 09/20/18 19:00 19:30 20:00 Temperature Pulse Rate Respiratory 18 Rate Blood Pressure 124/71 116/64 85/66 O2 Sat by Pulse 99 99 100 Oximetry 09/20/18 09/20/18 20:30 22:08 Temperature 97.8 F Pulse Rate 60 Respiratory 16 Rate Blood Pressure 118/67 105/55 O2 Sat by Pulse 97 Oximetry Medical Decision Making - Medical Decision Making 52-year-old female patient presents to the emergency department today for evaluation of migraine headache and generalized facial tingling. Physical examination was unremarkable. She is neurologically intact with no focal deficits. Sensation is intact to the face. Did perform labs which showed normal electrolytes. Urinalysis is negative for infection. I did discuss findings and results with the patient. Upon reevaluation also symptoms have resolved. She denies headache at this time. Denies any tingling at this time. We did discuss the migraine as a cause for his facial tingling. She is also reporting increased low back pain, no concerning symptoms for cauda equina. She does report a moving furniture over the last couple of days. No spinal tenderness. This is most likely an acute exacerbation of her chronic pain. She is instructed to follow-up with her primary care physician for recheck in 1-2 days. Return parameters discussed in detail. She verbalizes understanding and agrees with this plan. - Lab Data Result diagrams: 09/20/18 19:00 09/20/18 19:00 Lab Results 09/20/18 09/20/18 09/20/18 Range/Units 19:00 19:00 20:20 WBC 10.4 (3.8-10.6) k/uL RBC 4.64 (3.80-5.40) m/uL Hgb 13.3 (11.4-16.0) gm/dL Hct 40.5 (34.0-46.0) % MCV 87.2 (80.0-100.0) fL MCH 28.7 (25.0-35.0) pg MCHC 32.9 (31.0-37.0) g/dL RDW 15.1 (11.5-15.5) % Plt Count 217 (150-450) k/uL Neutrophils % 65 % Lymphocytes % 25 % Monocytes % 6 % Eosinophils % 2 % Basophils % 0 % Neutrophils # 6.8 (1.3-7.7) k/uL Lymphocytes # 2.6 (1.0-4.8) k/uL Monocytes # 0.6 (0-1.0) k/uL Eosinophils # 0.2 (0-0.7) k/uL Basophils # 0.0 (0-0.2) k/uL Sodium 141 (137-145) mmol/L Potassium 3.7 (3.5-5.1) mmol/L Chloride 109 H (98-107) mmol/L Carbon Dioxide 25 (22-30) mmol/L Anion Gap 7 mmol/L BUN 16 (7-17) mg/dL Creatinine 1.43 H (0.52-1.04) mg/dL Est GFR (CKD-EPI)AfAm 49 (>60 ml/min/1.73 sqM) Est GFR (CKD-EPI)NonAf 42 (>60 ml/min/1.73 sqM) Glucose 155 H (74-99) mg/dL Calcium 9.0 (8.4-10.2) mg/dL Total Bilirubin 0.3 (0.2-1.3) mg/dL AST 15 (14-36) U/L ALT 14 (9-52) U/L Alkaline Phosphatase 73 (38-126) U/L Total Protein 5.7 L (6.3-8.2) g/dL Albumin 3.5 (3.5-5.0) g/dL Urine Color Yellow Urine Appearance Clear (Clear) Urine pH 7.0 (5.0-8.0) Ur Specific [place] 1.020 (1.001-1.035) Urine Protein Negative (Negative) Urine Glucose (UA) Negative (Negative) Urine Ketones Negative (Negative) Urine Blood Negative (Negative) Urine Nitrite Negative (Negative) Urine Bilirubin Negative (Negative) Urine Urobilinogen <2.0 (<2.0) mg/dL Ur Leukocyte Esterase Negative (Negative) Disposition Clinical Impression: Migraine headache, Acute exacerbation of chronic low back pain Disposition: HOME SELF-CARE Condition: Good Instructions (If sedation given, give patient instructions): Migraine Headache (ED), Acute Low Back Pain (ED) Additional Instructions: Follow-up with her primary care physician for recheck in 1-2 days. Return to the emergency department immediately for any new, worsening, or concerning symptoms. Is patient prescribed a controlled substance at d/c from ED?: No Referrals: Raeann Connelly MD [Primary Care Provider] - 1-2 days Time of Disposition: 21:46
[2018-09-20 19:28] LABS: Albumin 3.5 g/dL (3.5-5.0); Potassium 3.7 mmol/L (3.5-5.1); Total Bilirubin 0.3 mg/dL (0.2-1.3); Total Protein 5.7 g/dL (6.3-8.2)
[2018-09-20 19:36] LABS: Basophils % (A) 0 %; Eosinophils # (A) 0.2 k/uL (0-0.7); Eosinophils % (A) 2 %; HCT 40.5 % (34.0-46.0); HGB 13.3 gm/dL (11.4-16.0); Lymphocytes # (A) 2.6 k/uL (1.0-4.8); Lymphocytes % (A) 25 %; MCH 28.7 pg (25.0-35.0); MCHC 32.9 g/dL (31.0-37.0); MCV 87.2 fL (80.0-100.0); Mean Platelet Volume 8.8; Monocytes # (A) 0.6 k/uL (0-1.0); Monocytes % (A) 6 %; Neutrophils # (A) 6.8 k/uL (1.3-7.7); Neutrophils % (A) 65 %; Platelet Count 217 k/uL (150-450); RBC 4.64 m/uL (3.80-5.40); RDW 15.1 % (11.5-15.5); WBC 10.4 k/uL (3.8-10.6)
[2018-09-20 20:31] LABS: Appearance,Urine Clear (Clear); Bilirubin,Urine Negative (Negative); Blood,Urine Negative (Negative); Color,Urine Yellow; Glucose,Urine (UA) Negative (Negative); Ketones,Urine Negative (Negative); Leukocyte Esterase,Urine Negative (Negative); Nitrite,Urine Negative (Negative); Protein,Urine Negative (Negative); Urobilinogen,Urine <2.0 mg/dL (<2.0)
[2018-09-20 22:10] VITALS: BP 105/55; PULSE 60; RESP 16; TEMP 97.8
== END 2018-09-20 22:17 | disposition home or self-care (01) ==
LOC: EC 17:40
DX: G43.909 Migraine, unspecified, not intractable, without status migrainosus (principal); M54.5 Low back pain; G89.29 Other chronic pain; E11.9 Type 2 diabetes mellitus without complications; I10 Essential (primary) hypertension; F31.9 Bipolar disorder, unspecified; F41.9 Anxiety disorder, unspecified; Z87.891 Personal history of nicotine dependence; Z79.82 Long term (current) use of aspirin; Z79.84 Long term (current) use of oral hypoglycemic drugs; Z79.899 Other long term (current) drug therapy; Z88.8 Allergy status to other drugs, medicaments and biological substances; Z88.6 Allergy status to analgesic agent; Z91.041 Radiographic dye allergy status; Z88.1 Allergy status to other antibiotic agents
CPT/HCPCS: 36415; 80053; 85025; 81003; 99284; 96374; 96361; J2270

== ENCOUNTER 2018-11-26 11:53 | Emergency (ER) | payer OTHER ==
[2018-11-26 12:02] VITALS: BP 148/87; PULSE 72; RESP 18; TEMP 98.2
[2018-11-26] MEDS ORDERED: SODIUM CHLORIDE 0.9% 1,000 ML IV STA ×2 (13:03)
[2018-11-26 13:17] LABS: Basophils % (A) 0 %; Eosinophils # (A) 0.1 k/uL (0-0.7); Eosinophils % (A) 1 %; HCT 42.8 % (34.0-46.0); HGB 14.5 gm/dL (11.4-16.0); Lymphocytes # (A) 2.2 k/uL (1.0-4.8); Lymphocytes % (A) 25 %; MCH 30.1 pg (25.0-35.0); MCHC 33.8 g/dL (31.0-37.0); MCV 89.1 fL (80.0-100.0); Mean Platelet Volume 8.2; Monocytes # (A) 0.5 k/uL (0-1.0); Monocytes % (A) 6 %; Neutrophils # (A) 5.6 k/uL (1.3-7.7); Neutrophils % (A) 66 %; Platelet Count 217 k/uL (150-450); RDW 13.2 % (11.5-15.5); WBC 8.5 k/uL (3.8-10.6)
--- NOTE | 2018-11-26 13:18 | ED ---
Recheck HPI - General Chief Complaint: Recheck/Abnormal Lab/Rx Stated Complaint: Headaches/nausea Time Seen by Provider: 11/26/18 12:29 Source: patient, RN notes reviewed, old records reviewed Mode of arrival: wheelchair Limitations: no limitations - History of Present Illness Initial Comments: This Patient is a 53-year-old female presents emergency department today with multiple complaints. She states that she's not been taking her normal bipolar medication makes her have dizziness and syncopal episodes. She states that she's been under immense amount of stress lately as well. She has been suffering from increased dizziness migraines. Patient states that she's had no fevers or chills. She does complain of early nausea. She also states that she feels like she can occasionally be and states that all of her test continuing negative. Patient states that she was told she is undergoing menopause but does not quite believe this. Patient states that she has a suicidal or homicidal ideations. She does have history of bipolar disorder and follows with [facility]. - Related Data Home Medications Medication Instructions Recorded Confirmed Ergocalciferol (Vitamin D2) 50,000 unit PO NICOLE 05/13/16 09/20/18 [Vitamin D2] Fluticasone Nasal [place] [Flonase 2 spr EA NOSTRIL DAILY PRN 05/13/16 09/20/18 Nasal [place]] Losartan/Hydrochlorothiazide 1 tab PO DAILY 05/13/16 09/20/18 [Hyzaar 100-12.5 Tablet] Meclizine [Antivert] 25 mg PO TID PRN 05/13/16 09/20/18 Methocarbamol [Robaxin] 750 mg PO BID PRN 05/13/16 09/20/18 Omeprazole [PriLOSEC] 20 mg PO BID 05/13/16 09/20/18 Prochlorperazine [Compazine] 5 mg PO TID PRN 05/13/16 09/20/18 Ranitidine HCl [Zantac] 150 mg PO BID 05/13/16 09/20/18 metFORMIN HCL [Glucophage] 850 mg PO TID 05/13/16 09/20/18 rOPINIRole HCL [Requip] 0.75 mg PO HS 05/13/16 09/20/18 Loperamide HCl [Imodium A-D] 6 mg PO DAILY PRN 08/21/16 09/20/18 Rizatriptan Benzoate [Maxalt [employer] DATA MANAGEMENT MANAGER] 10 mg PO BID PRN 08/21/16 09/20/18 Acetaminophen Tab [Tylenol Tab] 1,500 mg PO Q8H PRN 05/21/18 09/20/18 Albuterol Inhaler [Ventolin Hfa 1 - 2 puff INHALATION RT-Q6H PRN 05/21/18 09/20/18 Inhaler] Folic Acid 0.8 mg PO DAILY 05/21/18 09/20/18 Oxybutynin Chloride 5 mg PO BID 05/21/18 09/20/18 Pioglitazone [Actos] 15 mg PO DAILY 05/21/18 09/20/18 Topiramate [Topamax] 100 mg PO BID 05/21/18 09/20/18 busPIRone HCL 15 mg PO BID 05/21/18 09/20/18 diphenhydrAMINE [Benadryl] 25 mg PO HS 05/21/18 09/20/18 Glimepiride [Amaryl] 4 mg PO BID 06/20/18 09/20/18 Aspirin 81 mg PO DAILY 09/20/18 09/20/18 Atorvastatin Calcium [Lipitor] 10 mg PO HS 09/20/18 09/20/18 Cetirizine HCl [Zyrtec] 10 mg PO DAILY 09/20/18 09/20/18 HYDROcodone/APAP 5-325MG [[place] 1 tab PO BID PRN 09/20/18 09/20/18 5-325] Metoprolol Succinate [Toprol XL] 25 mg PO HS 09/20/18 09/20/18 QUEtiapine FUMARATE [SEROquel] 25 mg PO HS 09/20/18 09/20/18 Previous Rx's Medication Instructions Recorded Rizatriptan Benzoate [Maxalt] 10 mg PO DAILY #12 tablet 11/26/18 Allergies Allergy/AdvReac Type Severity Reaction Status Date / Time dicyclomine [From Bentyl] Allergy Lip Verified 09/20/18 18:56 Swelling gabapentin Allergy Lip Verified 09/20/18 18:56 Swelling RIGO Inhibitors AdvReac Cold Verified 09/20/18 18:56 Symptoms cephalexin [From Keflex] AdvReac Flu Verified 05/30/19 18:56 Symptoms cyclobenzaprine AdvReac Extreme Verified 09/20/18 18:56 [From Flexeril] Sedation Iodinated Contrast- Oral and AdvReac Unknown Verified 09/20/18 18:56 IV Dye ketorolac [From Toradol] AdvReac Extreme Verified 09/20/18 18:56 Sedation metoclopramide [From Reglan] AdvReac Shivering/Gets Verified 09/20/18 18:56 Extremely Cold ondansetron AdvReac Interacts Verified 09/20/18 18:56 [From Zofran (as with hydrochloride)] Seroquel Ammonia Scent AdvReac Fainting Uncoded 05/21/18 04:48 Review of Systems ROS Statement: Those systems with pertinent positive or pertinent negative responses have been documented in the HPI. ROS Other: All systems not noted in ROS Statement are negative. Past Medical History Past Medical History: Diabetes Mellitus, Hypertension Additional Past Medical History / Comment(s): Vertigo; Migraines; syncopal epsiodes in the past History of Any Multi-Drug Resistant Organisms: None Reported Past Surgical History: No Surgical Hx Reported Additional Past Surgical History / Comment(s): Oral surgery Past Psychological History: Anxiety, Bipolar, Depression Smoking Status: Former smoker Past Alcohol Use History: None Reported Past Drug Use History: None Reported General Exam - General Exam Comments Initial Comments: This is a 53-year-old female. Alert and oriented 3. Patient appears in no distress. Limitations: no limitations General appearance: alert, in no apparent distress Head exam: Present: atraumatic, normocephalic, normal inspection Eye exam: Present: normal appearance ENT exam: Present: normal exam, mucous membranes moist Neck exam: Present: normal inspection Respiratory exam: Present: normal lung sounds bilaterally. Absent: respiratory distress, wheezes, rales, rhonchi, stridor Cardiovascular Exam: Present: regular rate, normal rhythm, normal heart sounds. Absent: systolic murmur, diastolic murmur, rubs, gallop, clicks GI/Abdominal exam: Present: soft, normal bowel sounds. Absent: distended, tenderness, guarding, rebound, rigid Extremities exam: Present: normal inspection, full ROM, normal capillary refill. Absent: tenderness, pedal edema, joint swelling, calf tenderness Back exam: Present: normal inspection Neurological exam: Present: alert, oriented X3, CN II-XII intact Psychiatric exam: Present: normal affect, normal mood Skin exam: Present: warm, dry, intact, normal color. Absent: rash Course Vital Signs 11/26/18 11:59 Temperature 98.2 F Pulse Rate 72 Respiratory 18 Rate Blood Pressure 148/87 O2 Sat by Pulse 98 Oximetry Medical Decision Making - Medical Decision Making Is a 53-year-old female multiple complaints complaining of stress, and medications making her feel dizzy. This time patient's EKG was reviewed and normal, unremarkable lab work. She is complaining of migraine headache and some nausea. Was given Zofran. Patient has no other significant complaints. This time patient's will be discharged with a refill for Maxalt. Discussed that she should follow-up with her primary care doctor. All questions were answered. - Lab Data Result diagrams: 11/26/18 12:30 11/26/18 12:30 Lab Results 11/26/18 11/26/18 11/26/18 Range/Units 12:30 12:30 12:30 WBC 8.5 (3.8-10.6) k/uL RBC 4.80 (3.80-5.40) m/uL Hgb 14.5 (11.4-16.0) gm/dL Hct 42.8 (34.0-46.0) % MCV 89.1 (80.0-100.0) fL MCH 30.1 (25.0-35.0) pg MCHC 33.8 (31.0-37.0) g/dL RDW 13.2 (11.5-15.5) % Plt Count 217 (150-450) k/uL Neutrophils % 66 % Lymphocytes % 25 % Monocytes % 6 % Eosinophils % 1 % Basophils % 0 % Neutrophils # 5.6 (1.3-7.7) k/uL Lymphocytes # 2.2 (1.0-4.8) k/uL Monocytes # 0.5 (0-1.0) k/uL Eosinophils # 0.1 (0-0.7) k/uL Basophils # 0.0 (0-0.2) k/uL PT (9.0-12.0) sec INR (<1.2) APTT (22.0-30.0) sec Sodium 141 (137-145) mmol/L Potassium 4.2 (3.5-5.1) mmol/L Chloride 110 H (98-107) mmol/L Carbon Dioxide 23 (22-30) mmol/L Anion Gap 8 mmol/L BUN 21 H (7-17) mg/dL Creatinine 0.81 (0.52-1.04) mg/dL Est GFR (CKD-EPI)AfAm >90 (>60 ml/min/1.73 sqM) Est GFR (CKD-EPI)NonAf 84 (>60 ml/min/1.73 sqM) Glucose 120 H (74-99) mg/dL Calcium 9.4 (8.4-10.2) mg/dL Magnesium 2.1 (1.6-2.3) mg/dL Total Bilirubin 0.9 (0.2-1.3) mg/dL AST 29 (14-36) U/L ALT 23 (9-52) U/L Alkaline Phosphatase 69 (38-126) U/L Troponin I (0.000-0.034) ng/mL NT-Pro-B Natriuret Pep pg/mL Total Protein 6.7 (6.3-8.2) g/dL Albumin 3.9 (3.5-5.0) g/dL Amylase 32 (30-110) U/L Lipase 26 (23-300) U/L Urine Color Urine Appearance (Clear) Urine pH (5.0-8.0) Ur Specific [place] (1.001-1.035) Urine Protein (Negative) Urine Glucose (UA) (Negative) Urine Ketones (Negative) Urine Blood (Negative) Urine Nitrite (Negative) Urine Bilirubin (Negative) Urine Urobilinogen (<2.0) mg/dL Ur Leukocyte Esterase (Negative) Urine RBC (0-5) /hpf Urine WBC (0-5) /hpf Ur Squamous Epith Cells (0-4) /hpf Urine Mucus (None) /hpf Urine HCG, Qual Not Detected (Not Detectd) 11/26/18 11/26/18 11/26/18 Range/Units 12:30 12:30 12:30 WBC (3.8-10.6) k/uL RBC (3.80-5.40) m/uL Hgb (11.4-16.0) gm/dL Hct (34.0-46.0) % MCV (80.0-100.0) fL MCH (25.0-35.0) pg MCHC (31.0-37.0) g/dL RDW (11.5-15.5) % Plt Count (150-450) k/uL Neutrophils % % Lymphocytes % % Monocytes % % Eosinophils % % Basophils % % Neutrophils # (1.3-7.7) k/uL Lymphocytes # (1.0-4.8) k/uL Monocytes # (0-1.0) k/uL Eosinophils # (0-0.7) k/uL Basophils # (0-0.2) k/uL PT 10.0 (9.0-12.0) sec INR 0.9 (<1.2) APTT 24.1 (22.0-30.0) sec Sodium (137-145) mmol/L Potassium (3.5-5.1) mmol/L Chloride (98-107) mmol/L Carbon Dioxide (22-30) mmol/L Anion Gap mmol/L BUN (7-17) mg/dL Creatinine (0.52-1.04) mg/dL Est GFR (CKD-EPI)AfAm (>60 ml/min/1.73 sqM) Est GFR (CKD-EPI)NonAf (>60 ml/min/1.73 sqM) Glucose (74-99) mg/dL Calcium (8.4-10.2) mg/dL Magnesium (1.6-2.3) mg/dL Total Bilirubin (0.2-1.3) mg/dL AST (14-36) U/L ALT (9-52) U/L Alkaline Phosphatase (38-126) U/L Troponin I <0.012 (0.000-0.034) ng/mL NT-Pro-B Natriuret Pep 56 pg/mL Total Protein (6.3-8.2) g/dL Albumin (3.5-5.0) g/dL Amylase (30-110) U/L Lipase (23-300) U/L Urine Color Urine Appearance (Clear) Urine pH (5.0-8.0) Ur Specific [place] (1.001-1.035) Urine Protein (Negative) Urine Glucose (UA) (Negative) Urine Ketones (Negative) Urine Blood (Negative) Urine Nitrite (Negative) Urine Bilirubin (Negative) Urine Urobilinogen (<2.0) mg/dL Ur Leukocyte Esterase (Negative) Urine RBC (0-5) /hpf Urine WBC (0-5) /hpf Ur Squamous Epith Cells (0-4) /hpf Urine Mucus (None) /hpf Urine HCG, Qual (Not Detectd) 11/26/18 Range/Units 12:30 WBC (3.8-10.6) k/uL RBC (3.80-5.40) m/uL Hgb (11.4-16.0) gm/dL Hct (34.0-46.0) % MCV (80.0-100.0) fL MCH (25.0-35.0) pg MCHC (31.0-37.0) g/dL RDW (11.5-15.5) % Plt Count (150-450) k/uL Neutrophils % % Lymphocytes % % Monocytes % % Eosinophils % % Basophils % % Neutrophils # (1.3-7.7) k/uL Lymphocytes # (1.0-4.8) k/uL Monocytes # (0-1.0) k/uL Eosinophils # (0-0.7) k/uL Basophils # (0-0.2) k/uL PT (9.0-12.0) sec INR (<1.2) APTT (22.0-30.0) sec Sodium (137-145) mmol/L Potassium (3.5-5.1) mmol/L Chloride (98-107) mmol/L Carbon Dioxide (22-30) mmol/L Anion Gap mmol/L BUN (7-17) mg/dL Creatinine (0.52-1.04) mg/dL Est GFR (CKD-EPI)AfAm (>60 ml/min/1.73 sqM) Est GFR (CKD-EPI)NonAf (>60 ml/min/1.73 sqM) Glucose (74-99) mg/dL Calcium (8.4-10.2) mg/dL Magnesium (1.6-2.3) mg/dL Total Bilirubin (0.2-1.3) mg/dL AST (14-36) U/L ALT (9-52) U/L Alkaline Phosphatase (38-126) U/L Troponin I (0.000-0.034) ng/mL NT-Pro-B Natriuret Pep pg/mL Total Protein (6.3-8.2) g/dL Albumin (3.5-5.0) g/dL Amylase (30-110) U/L Lipase (23-300) U/L Urine Color Yellow Urine Appearance Clear (Clear) Urine pH 5.5 (5.0-8.0) Ur Specific [place] 1.021 (1.001-1.035) Urine Protein Negative (Negative) Urine Glucose (UA) Negative (Negative) Urine Ketones Negative (Negative) Urine Blood Negative (Negative) Urine Nitrite Negative (Negative) Urine Bilirubin Negative (Negative) Urine Urobilinogen <2.0 (<2.0) mg/dL Ur Leukocyte Esterase Small H (Negative) Urine RBC <1 (0-5) /hpf Urine WBC 5 (0-5) /hpf Ur Squamous Epith Cells 4 (0-4) /hpf Urine Mucus Rare H (None) /hpf Urine HCG, Qual (Not Detectd) 11/26/18 13:18 EKG shows sinus bradycardia, low voltage pillo. Borderline EKG. Ventricular rate of 59 bpm. Pulse 164 ms. Respiration is 88 ms. QT QTc is 448/453 ms. Disposition Clinical Impression: Migraine, Medication refill, Dizziness Disposition: HOME SELF-CARE Condition: Good Instructions (If sedation given, give patient instructions): Migraine Headache (ED) Additional Instructions: Patient advied to to follow-up with your primary care physician. Return to the emergency department if any alarming signs or symptoms occur. Rest, remain hydrated. Make sure to follow up with [facility] in regards to medication adjustment s. Prescriptions: Rizatriptan Benzoate [Maxalt] 10 mg PO DAILY #12 tablet Is patient prescribed a controlled substance at d/c from ED?: No Referrals: Rand Lopez MD [Primary Care Provider] - 1-2 days Time of Disposition: 15:01
[2018-11-26 13:19] LABS: Appearance,Urine Clear (Clear); Bilirubin,Urine Negative (Negative); Blood,Urine Negative (Negative); Color,Urine Yellow; Glucose,Urine (UA) Negative (Negative); Ketones,Urine Negative (Negative); Leukocyte Esterase,Urine Small (Negative); Mucus,Urine Rare /hpf; Nitrite,Urine Negative (Negative); PH, Urine 5.5 (5.0-8.0); Protein,Urine Negative (Negative); RBC,Urine <1 /hpf (0-5); Specific Gravity,Urine 1.021 (1.001-1.035); Squamous Epithelial Cell,Urine 4 /hpf (0-4); Urobilinogen,Urine <2.0 mg/dL (<2.0); WBC,Urine 5 /hpf (0-5)
[2018-11-26 13:23] LABS: ALT 23 U/L (9-52); AST 29 U/L (14-36); African American GFR (CKD) >90 (>60 ml/min/1.73 sqM); Albumin 3.9 g/dL (3.5-5.0); Alkaline Phosphatase 69 U/L (38-126); Amylase 32 U/L (30-110); Anion Gap 8 mmol/L; Blood Urea Nitrogen 21 mg/dL (7-17); Calcium 9.4 mg/dL (8.4-10.2); Carbon Dioxide 23 mmol/L (22-30); Chloride 110 mmol/L (98-107); Glucose 120 mg/dL (74-99); Magnesium 2.1 mg/dL (1.6-2.3); Sodium 141 mmol/L (137-145); Total Bilirubin 0.9 mg/dL (0.2-1.3); Total Protein 6.7 g/dL (6.3-8.2)
[2018-11-26 13:30] LABS: INR 0.9 (<1.2); Partial Thromboplastin Time 24.1 sec (22.0-30.0)
[2018-11-26 13:34] LABS: Potassium 4.2 mmol/L (3.5-5.1)
--- NOTE | 2018-11-26 13:42 | XR ---
EXAMINATION TYPE: XR chest 2V DATE OF EXAM: 11/26/2018 COMPARISON: 05/13/2018 HISTORY: Chest pain TECHNIQUE: Frontal and lateral views of the chest are obtained. FINDINGS: There is no focal air space opacity, pleural effusion, or pneumothorax seen. The cardiac silhouette size is mildly enlarged. The osseous structures are intact. Moderate multilevel degenera tive changes of the spine. IMPRESSION: No acute cardiopulmonary process.
[2018-11-26] MEDS ORDERED: ACETAMINOPHEN TAB 500 MG TAB PO STA (14:18)
[2018-11-26] MEDS ORDERED: ORPHENADRINE 30 MG/ML 2 ML VIAL IVP STA (14:18)
== END 2018-11-26 15:15 | disposition home or self-care (01) ==
LOC: EC 11:53
DX: Z76.0 Encounter for issue of repeat prescription (principal); G43.909 Migraine, unspecified, not intractable, without status migrainosus; F31.9 Bipolar disorder, unspecified; R45.850 Homicidal ideations; R45.851 Suicidal ideations; E11.9 Type 2 diabetes mellitus without complications; I10 Essential (primary) hypertension; F41.9 Anxiety disorder, unspecified; Z87.891 Personal history of nicotine dependence; Z79.84 Long term (current) use of oral hypoglycemic drugs; Z79.82 Long term (current) use of aspirin; Z79.899 Other long term (current) drug therapy; Z88.8 Allergy status to other drugs, medicaments and biological substances; Z88.1 Allergy status to other antibiotic agents; Z91.041 Radiographic dye allergy status; Z88.6 Allergy status to analgesic agent; Z91.048 Other nonmedicinal substance allergy status; Z53.8 Procedure and treatment not carried out for other reasons
CPT/HCPCS: 99284; 96374; 96361; 36415; 93005; 83880; 80053; 82150; 83690; 83735; 84484; 85025; 85610; 85730; 81001; 81025; 71046; J2360

== ENCOUNTER → 2018-11-26 | Outpatient (CLI) | payer OTHER | END | disposition home or self-care (01) | LOC: LABWHC1 11:46 | PROVIDERS: ATTEND Internal Medicine | DX: Z53.9 Procedure and treatment not carried out, unspecified reason (principal) ==

== ENCOUNTER → 2019-10-15 | Outpatient (CLI) | payer OTHER ==
[2019-10-15 09:31] LABS: Basophils % (A) 1 %; Eosinophils # (A) 0.2 k/uL (0-0.7); Eosinophils % (A) 3 %; HCT 46.4 % (34.0-46.0); HGB 14.9 gm/dL (11.4-16.0); Lymphocytes % (A) 27 %; MCH 29.4 pg (25.0-35.0); MCHC 32.1 g/dL (31.0-37.0); MCV 91.5 fL (80.0-100.0); Mean Platelet Volume 9.8; Monocytes # (A) 0.4 k/uL (0-1.0); Monocytes % (A) 6 %; Neutrophils # (A) 4.6 k/uL (1.3-7.7); Neutrophils % (A) 63 %; Platelet Count 164 k/uL (150-450); RBC 5.07 m/uL (3.80-5.40); RDW 13.3 % (11.5-15.5); WBC 7.3 k/uL (3.8-10.6)
[2019-10-15 17:27] LABS: T4, Free (Free Thyroxine) 1.4 ng/dL (0.80-1.80)
[2019-10-15 17:30] LABS: Ferritin 46.8 ng/mL (10.0-291.0)
[2019-10-15 18:07] LABS: % Iron Saturation 25.72 (12.00-45.00); Albumin/Globulin Ratio 2.11 (1.60-3.17); Anion Gap 15.3 mmol/L (4.00-12.00); Calcium 9.1 mg/dL (8.7-10.3); Carbon Dioxide 21.7 mmol/L (21.6-31.8); Folate, Serum 11.6 ng/mL; Globulin 1.9 g/dL (1.6-3.3); Magnesium 1.9 mg/dL (1.5-2.4); Non-African American GFR(CKD) 63.8 (60.0-200.0); Potassium 4.2 mmol/L (3.5-5.5); Total Bilirubin 0.4 mg/dL (0.3-1.2); Total Protein 5.9 g/dL (6.2-8.2)
[2019-10-15 20:31] LABS: Hemoglobin A1C 10.9 % (4.0-6.0)
== END | disposition home or self-care (01) ==
LOC: LABWHC1 08:09
PROVIDERS: ATTEND Nurse Practitioner Psychiatric/Mental Health
DX: E55.9 Vitamin D deficiency, unspecified (principal); H81.10 Benign paroxysmal vertigo, unspecified ear; Z79.899 Other long term (current) drug therapy; F33.0 Major depressive disorder, recurrent, mild
CPT/HCPCS: 36415; 80053; 80061; 82306; 82607; 82728; 82746; 83036; 83540; 83550; 83721; 83735; 84207; 84439; 84443; 84630; 85025

== ENCOUNTER 2021-07-20 13:14 | Inpatient (IN) | payer MEDICAID, OTHER ==
[2021-07-20] MEDS ORDERED: HYDROcodone/APAP 7.5-325MG 1 EACH TAB PO ONE (14:31)
--- NOTE | 2021-07-20 14:37 | ED ---
General Adult HPI - General Source: patient, RN notes reviewed, old records reviewed Mode of arrival: wheelchair <Colin Chambers - Last Filed: 07/20/21 14:34> <Corine Conde - Last Filed: 07/20/21 17:53> - General Chief complaint: Psychiatric Symptoms Stated complaint: EPS eval Time Seen by Provider: 07/20/21 13:55 - History of Present Illness Initial comments: Patient is a 55-year-old female with past medical history remarkable for hypertension, bipolar disease who presents in which department suicidal and homicidal ideations. Patient also has a history of diabetes. She states she is under increased stress because "I would with a narcisist". She endorses suicidal ideations but denies any attempt or plans. She endorses homicidal ideations but denies any attempts or plans. Denies any visual or auditory hallucinations. She presents because she wants to be evaluated by psychiatry. Denies any other acute complaints at this time. States her blood sugars normally with a normal limits in the 100s. Denies any chest pain, shortness breath, abdominal pain, nausea, vomiting, headaches, weakness, numbness. His chronic back pain. Is requesting her home [place] 7.5. (Colin Chambers) - Related Data Home Medications Medication Instructions Recorded Confirmed Ergocalciferol (Vitamin D2) 50,000 unit PO Q7D 05/13/16 07/20/21 [Vitamin D2] Losartan/Hydrochlorothiazide 1 tab PO DAILY 05/13/16 07/20/21 [Hyzaar 100-12.5 Tablet] Meclizine [Antivert] 25 mg PO DAILY PRN 05/13/16 07/20/21 Omeprazole [PriLOSEC] 20 mg PO BID 05/13/16 07/20/21 metFORMIN HCL [Glucophage] 850 mg PO TID 05/13/16 07/20/21 Oxybutynin Chloride 5 mg PO BID 05/21/18 07/20/21 Pioglitazone [Actos] 15 mg PO DAILY 05/21/18 07/20/21 busPIRone HCL 15 mg PO BID 05/21/18 07/20/21 diphenhydrAMINE [Benadryl] 25 mg PO HS 05/21/18 07/20/21 Glimepiride [Amaryl] 4 mg PO BID 06/20/18 07/20/21 Cetirizine HCl [Zyrtec] 10 mg PO DAILY 09/20/18 07/20/21 Metoprolol Succinate [Toprol XL] 25 mg PO HS 09/20/18 07/20/21 QUEtiapine FUMARATE [SEROquel] 25 mg PO BID 09/20/18 07/20/21 Albuterol Sulfate [Ventolin HFA] 2 puff INHALATION RT-Q6H PRN 07/20/21 07/20/21 Butalb/APAP/Caff 50-325-40Mg 1 tab PO TID PRN 07/20/21 07/20/21 [Fioricet 50-325-40] DULoxetine HCL [Cymbalta] 60 mg PO DAILY 07/20/21 07/20/21 HYDROcodone/APAP 7.5-325MG [[place] 1 tab PO BID PRN 07/20/21 07/20/21 7.5-325] Insulin Glargine,Hum.rec.anlog 8 unit SQ TID-W/MEALS 07/20/21 07/20/21 [Lantus Solostar Pen] Nicotine 14Mg/24Hr Patch [Habitrol] 1 patch TOPICAL DIRECTED PRN 07/20/21 07/20/21 Nicotine 21Mg/24Hr Patch [Habitrol] 1 patch TRANSDERM DAILY PRN 07/20/21 07/20/21 Pregabalin [Lyrica] 150 mg PO TID 07/20/21 07/20/21 Rosuvastatin [Crestor] 10 mg PO DAILY 07/20/21 07/20/21 Topiramate 50 mg PO BID 07/20/21 07/20/21 amLODIPine [Norvasc] 5 mg PO DAILY 07/20/21 07/20/21 tiZANidine [Zanaflex] 4 mg PO BID PRN 07/20/21 07/20/21 Allergies Allergy/AdvReac Type Severity Reaction Status Date / Time dicyclomine [From Bentyl] Allergy Lip Verified 07/20/21 15:56 Swelling gabapentin Allergy Lip Verified 07/20/21 15:56 Swelling RIGO Inhibitors AdvReac Cold Verified 07/20/21 15:56 Symptoms cephalexin [From Keflex] AdvReac Flu Verified 07/20/21 15:56 Symptoms cyclobenzaprine AdvReac Extreme Verified 07/20/21 15:56 [From Flexeril] Sedation Iodinated Contrast Media AdvReac Unknown Verified 07/20/21 15:56 [Iodinated Contrast- Oral and IV Dye] ketorolac [From Toradol] AdvReac Extreme Verified 07/20/21 15:56 Sedation metoclopramide [From Reglan] AdvReac Shivering/Gets Verified 07/20/21 15:56 Extremely Cold ondansetron AdvReac Interacts Verified 07/20/21 15:56 [From Zofran (as with hydrochloride)] Seroquel Ammonia Scent AdvReac Fainting Uncoded 07/20/21 13:51 Review of Systems ROS Other: All systems not noted in ROS Statement are negative. <Colin Chambers - Last Filed: 07/20/21 14:34> ROS Other: All systems not noted in ROS Statement are negative. <Corine Conde - Last Filed: 07/20/21 17:53> ROS Statement: Those systems with pertinent positive or pertinent negative responses have been documented in the HPI. Review of Systems: CONST: Denies fever EYES: Denies blurry vision ENT: Denies nasal congestion C/V: Denies Chest pain RESP: Denies shortness of breath GI: Denies abdominal pain : Denies dysuria SKIN: Denies rash. MSK: Endorses chronic joint pain NEURO: Denies headache PSYCH: Endorses suicidal and homicidal ideations. Denies suicidal and homicidal plans/attempts. Denies visual or auditory hallucinations. (Colin Chambers) Past Medical History Past Medical History: Diabetes Mellitus, Hypertension Additional Past Medical History / Comment(s): Vertigo; Migraines; syncopal e psiodes in the past History of Any Multi-Drug Resistant Organisms: None Reported Past Surgical History: No Surgical Hx Reported Additional Past Surgical History / Comment(s): Oral surgery Past Psychological History: Anxiety, Bipolar, Depression Past Alcohol Use History: None Reported Past Drug Use History: None Reported <Colin Chambers - Last Filed: 07/20/21 14:34> General Exam <Colin Chambers - Last Filed: 07/20/21 14:34> - General Exam Comments Initial Comments: General: Appears in no acute distress. HEAD: Normal with no signs of head trauma. EYES: PERRLA, EOMI, conjunctiva normal, no discharge. The CA 3 mm and equal bilaterally. ENT: Hearing grossly intact, normal oropharynx. RESPIRATORY: Clear breath sounds bilaterally. No wheezes, rales, or rhonchi. C/V: Regular rate and rhythm. S1 and S2 auscultated, no edema, peripheral pulses 2+ and intact throughout ABD: Abd is soft, nontender, nondistended EXT: Normal range of motion, no obvious deformity SKIN: No rashes or lesions observed on exposed skin. NEURO: Alert and oriented 4. No focal sensory strength deficits. (Colin Chambers) Course Vital Signs 07/20/21 13:45 Temperature 99.1 F Pulse Rate 94 Respiratory 18 Rate Blood Pressure 181/81 O2 Sat by Pulse 97 Oximetry Medical Decision Making <Colin Chambers - Last Filed: 07/20/21 14:34> <Corine Conde - Last Filed: 07/20/21 17:53> - Medical Decision Making Based on the patient's presentation and physical exam, I do believe she requires psychiatric evaluation. We will check an Accu-Chek in addition to a BAT, which is 0.00. UDS is pending at this time. She'll be given a [place]me[place] for pain control. She was in agreement with this plan. Patient is medically cleared for evaluation by EPS. Disposition is pending psychiatric evaluation. Care transitioned to Dr. Conde. (Colin Chambers) Patient care was signed out to me by Dr. Chambers. Patient had been pending evaluation by emergency psychiatric services. Upon evaluation patient was willing to sign into the psychiatric facility voluntarily. Patient be transferred to psych. (Corine Conde) - Lab Data Lab Results 07/20/21 07/20/21 Range/Units 14:38 14:42 POC Glucose (mg/dL) 279 H (75-99) mg/dL POC Glu Bail Bond Agent ID Kristy Lopez Urine Opiates Screen Not Detected (NotDetected) Ur Oxycodone Screen Not Detected (NotDetected) Urine Methadone Screen Not Detected (NotDetected) Ur Propoxyphene Screen Not Detected (NotDetected) Ur Barbiturates Screen Not Detected (NotDetected) U Tricyclic Antidepress Not Detected (NotDetected) Ur Phencyclidine Scrn Not Detected (NotDetected) Ur Amphetamines Screen Not Detected (NotDetected) U Methamphetamines Scrn Not Detected (NotDetected) U Benzodiazepines Scrn Not Detected (NotDetected) Urine Cocaine Screen Not Detected (NotDetected) U Marijuana (THC) Screen Not Detected (NotDetected) Disposition <Colin Chambers - Last Filed: 07/20/21 14:34> <Corine Conde - Last Filed: 07/20/21 17:53> Clinical Impression: Encounter for psychiatric assessment Disposition: TRANSFER TO PSYCH HOSP/UNIT Condition: Stable Referrals: Natacha Mar MD [Primary Care Provider] - 1-2 days
[2021-07-20 14:43] LABS: Glucose,Whole Blood 279 mg/dL (75-99)
[2021-07-20 15:12] LABS: Amphetamine Screen,Urine Not Detected (NotDetected); Barbiturate Screen,Urine Not Detected (NotDetected); Benzodiazepines Screen,Urine Not Detected (NotDetected); Cocaine Screen,Urine Not Detected (NotDetected); Methadone Screen, Urine Not Detected (NotDetected); Opiate Screen,Urine Not Detected (NotDetected); Oxycodone Screen, Urine Not Detected (NotDetected); Phencyclidine Screen,Urine Not Detected (NotDetected); Tricyclic Antidepressant,Urine Not Detected (NotDetected); Urn Cannabinoid Scrn Not Detected (NotDetected)
[2021-07-20] MEDS ORDERED: ALBUTEROL HFA INHALER INHALATION PRN (22:41)
[2021-07-20] MEDS ORDERED: HALOPERIDOL LACTATE 5 MG/ML 1 ML VIAL IM PRN (22:45)
[2021-07-20] MEDS ORDERED: ACETAMINOPHEN TAB 325 MG TAB PO PRN (22:45)
[2021-07-20] MEDS ORDERED: PERMETHRIN 1% CREME RINSE 59 ML LIQUID TOPICAL STA (23:03)
[2021-07-21] MEDS ORDERED: hydrOXYzine HCL 50 MG/ML 1 ML VIAL IM PRN
[2021-07-21] MEDS ORDERED: hydrOXYzine pamoate 25 MG CAP PO PRN
[2021-07-21] MEDS ORDERED: haloperidoL 5 MG TAB PO PRN
[2021-07-21] MEDS: QUEtiapine 25 MG TAB PO SCH ×2 (00:15→08:45)
[2021-07-21] MEDS: diphenhydrAMINE 25 MG CAP PO SCH ×2 (00:15→21:09)
[2021-07-21] MEDS: PREGABALIN 75 MG CAP PO SCH ×4 (00:15→21:09)
[2021-07-21] MEDS: busPIRone HCl 5 MG TAB PO SCH ×2 (00:16→08:45)
[2021-07-21] MEDS: METOPROLOL SUCCINATE (ER) 25 MG TAB.ER.24H PO SCH ×2 (01:03→21:09)
[2021-07-21] MEDS ORDERED: INSULIN DETEMIR (LEVEMIR) 100 UNIT/ML SYR SQ SCH ×2 (07:30→21:00)
[2021-07-21 07:56] LABS: Glucose,Whole Blood 256 mg/dL (75-99)
[2021-07-21] MEDS ORDERED: MAG HYDROX/AL HYDROX/SIMETH 30 ML CUP PO PRN (08:00)
[2021-07-21] MEDS: INSULIN ASPART (NovoLOG) 100 UNIT/ML VIAL SQ SCH ×3 (08:43→18:01)
[2021-07-21] MEDS: LOSARTAN-HCTZ 50-12.5 MG 1 EACH TAB PO SCH (08:44)
[2021-07-21] MEDS: GLIMEPIRIDE 4 MG TAB PO SCH ×2 (08:44→21:09)
[2021-07-21] MEDS: NICOTINE 14MG/24HR PATCH TRANSDERM SCH (08:44)
[2021-07-21] MEDS: ATORVASTATIN 20 MG TAB PO SCH (08:45)
[2021-07-21] MEDS: PIOGLITAZONE 15 MG TAB PO SCH (08:45)
[2021-07-21] MEDS: TOPIRAMATE 25 MG TAB PO SCH ×2 (08:45→21:08)
[2021-07-21] MEDS: OXYBUTYNIN CHLORIDE 5 MG TAB PO SCH ×2 (08:45→21:09)
[2021-07-21] MEDS: LOSARTAN 50 MG TAB PO SCH (08:45)
[2021-07-21] MEDS: metFORMIN 850 MG TAB PO SCH ×3 (08:45→21:08)
[2021-07-21] MEDS: amLODIPine 5 MG TAB PO SCH (08:45)
[2021-07-21] MEDS: PANTOPRAZOLE 40 MG TABLET PO SCH ×2 (08:45→21:09)
[2021-07-21] MEDS: LORATADINE 10 MG TAB PO SCH (08:46)
[2021-07-21] MEDS: LOPERAMIDE 2 MG CAP PO PRN ×2 (08:46→16:03)
[2021-07-21] MEDS ORDERED: tiZANidine 4 MG TAB PO PRN (09:00)
[2021-07-21] MEDS ORDERED: BUTALB/APAP/CAFF 50-325-40MG TAB PO PRN (09:00)
[2021-07-21] MEDS ORDERED: MECLIZINE 25 MG TAB PO PRN (09:00)
[2021-07-21] MEDS ORDERED: busPIRone HCl 5 MG TAB PO SCH (09:00)
[2021-07-21] MEDS ORDERED: DULoxetine HCL 60 MG CAPSULE.DR PO SCH (09:00)
[2021-07-21] MEDS ORDERED: PREGABALIN 75 MG CAP PO SCH (09:00)
[2021-07-21] MEDS ORDERED: QUEtiapine 25 MG TAB PO SCH (09:00)
[2021-07-21] MEDS ORDERED: MAGNESIUM HYDROXIDE 2,400 MG/10 ML CUP PO PRN (09:00)
[2021-07-21 12:12] LABS: Basophils % (A) 0 %; Eosinophils # (A) 0.2 k/uL (0-0.7); Eosinophils % (A) 3 %; HGB 15.3 gm/dL (11.4-16.0); Lymphocytes # (A) 1.4 k/uL (1.0-4.8); Lymphocytes % (A) 20 %; MCHC 33.2 g/dL (31.0-37.0); MCV 93.4 fL (80.0-100.0); Mean Platelet Volume 9.3; Monocytes # (A) 0.4 k/uL (0-1.0); Monocytes % (A) 6 %; Neutrophils # (A) 4.8 k/uL (1.3-7.7); Neutrophils % (A) 70 %; Platelet Count 218 k/uL (150-450); RBC 4.92 m/uL (3.80-5.40); RDW 13.5 % (11.5-15.5); WBC 6.8 k/uL (3.8-10.6)
[2021-07-21 12:45] LABS: Glucose,Whole Blood 278 mg/dL (75-99)
[2021-07-21 12:50] LABS: ALT 25 U/L (4-34); AST 23 U/L (14-36); African American GFR (CKD) >90 (>60 ml/min/1.73 sqM); Albumin 3.8 g/dL (3.5-5.0); Alkaline Phosphatase 84 U/L (38-126); Anion Gap 10 mmol/L; Blood Urea Nitrogen 18 mg/dL (7-17); Calcium 9.1 mg/dL (8.4-10.2); Carbon Dioxide 24 mmol/L (22-30); Chloride 106 mmol/L (98-107); Glucose 300 mg/dL (74-99); Non-African American GFR(CKD) 89 (>60 ml/min/1.73 sqM); Potassium 4.4 mmol/L (3.5-5.1); Sodium 140 mmol/L (137-145); Total Bilirubin 0.5 mg/dL (0.2-1.3); Total Protein 6.3 g/dL (6.3-8.2)
[2021-07-21] MEDS ORDERED: DULoxetine HCL 30 MG CAPSULE.DR PO ONE (14:39)
--- NOTE | 2021-07-21 15:21 | P.CONS ---
History of Present Illness - Reason for Consult Consult date: 07/21/21 Medical management Requesting physician: Nicolas Hernandez - Chief Complaint Suicidal - History of Present Illness This is a pleasant 55-year-old patient who follows with Dr. Mar. Chronic stable medical conditions include diabetes, hypertension, GERD, COPD uses inhalers as needed, peripheral neuropathy, migraines. Patient is going to back pain. And often uses a wheelchair in the kitchen when she has to stand for quite a while. Patient does live with her caregiver/boyfriend Roger. Patient according to document that can on several things . She got over or frustrated with the whole thing. And in the ER felt a bit suicidal homicidal. With no such plans otherwise. No change in her appetite and bowels are good. Good urine output. Admitted for the same. Patient stopped smoking about 4 weeks ago. Review of systems: GEN.: None EYES: None HEENT: None NECK: None RESPIRATORY: Occasional wheezing CARDIOVASCULAR: None GASTROINTESTINAL: None GENITOURINARY: None MUSCULOSKELETAL: Joint pains especially low back pain LYMPHATICS: None HEMATOLOGICAL: None PSYCHIATRY: Anxious, depressed NEUROLOGICAL: None. Past medical history to include: Diabetes, hypertension, migraine, bipolar, GERD, peripheral neuropathy, Social history: Smoke tobacco for 38 years stopped about 4 weeks ago. Alcohol occasionally. Lives with her caregiver and boyfriend Roger. Family history: Reviewed, noncontributory to presentation Physical examination: VITAL SIGNS: 97.2, 73, 16, 123/80, 98% room air GENERAL: BMI 36.8, sitting up in a chair awake a bit tired. EYES: Pupils equal. Conjunctiva normal. HEENT: External appearance of nose and ears normal, oral cavity grossly normal. NECK: JVD not raised; masses not palpable. HEART: First and second heart sounds are normal; no edema. LUNGS: Respiratory rate normal; decreased breath sounds. ABDOMEN: Soft, nontender, liver spleen not palpable, no masses palpable. PSYCH: Alert and oriented x3; mood and affect. Anxiousl. MUSCULOSKELETAL:No Clubbing/cyanosis;muscles-grossly intact NEUROLOGICAL: Cranial nerves grossly intact; no facial asymmetry, power and sensation grossly intact. LYMPHATICS: No lymph nodes palpable in the axilla and neck INVESTIGATIONS, reviewed in the clinical context: White count 6.8 hemoglobin 15.3 platelets 218 potassium 4.4 creatinine 0.76 Blood glucose 300 Accu-Cheks 278 Urine drug screen: Negative COVID-19: Negative TSH 1.1 Assessment and plan: -Diabetes mellitus type 2, chronic low insulin, uncontrolled with hyperglycemia Continue Actos, Glucophage, Amaryl. Humalog 5 units 3 times a day with meals -Hyperlipidemia Crestor 10 mg daily -Chronic low back pain from arthritis [place] 7.5 twice a day takes at home to be given as per 3 W. policy -Essential hypertension Amlodipine 5 mg a day Toprol-XL 25 mg daily at bedtime Hyzaar 100/12.5 one tablet daily -Diabetic peripheral neuropathy Medical 150 mg twice a day -Urinary stress incontinence Oxybutynin 5 mg twice a day -GERD Prilosec 20 mg twice a day -Bipolar disorder Medications to be just as per psychiatry Care was discussed with the patient and questions answered. Follow Accu-Cheks. Patient to follow with Dr. Mar upon discharge Thank Dr. Hernandez Past Medical History Past Medical History: Diabetes Mellitus, Hypertension Additional Past Medical History / Comment(s): Vertigo; Migraines; syncopal epsiodes in the past History of Any Multi-Drug Resistant Organisms: None Reported Past Surgical History: No Surgical Hx Reported Additional Past Surgical History / Comment(s): Oral surgery Past Psychological History: Anxiety, Bipolar, Depression Smoking Status: Former smoker Past Alcohol Use History: None Reported Past Drug Use History: None Reported Medications and Allergies Home Medications Medication Instructions Recorded Confirmed Type Ergocalciferol (Vitamin D2) 50,000 unit PO Q7D 05/13/16 07/20/21 History [Vitamin D2] Losartan/Hydrochlorothiazide 1 tab PO DAILY 05/13/16 07/20/21 History [Hyzaar 100-12.5 Tablet] Meclizine [Antivert] 25 mg PO DAILY PRN 05/13/16 07/20/21 History Omeprazole [PriLOSEC] 20 mg PO BID 05/13/16 07/20/21 History metFORMIN HCL [Glucophage] 850 mg PO TID 05/13/16 07/20/21 History Oxybutynin Chloride 5 mg PO BID 05/21/18 07/20/21 History Pioglitazone [Actos] 15 mg PO DAILY 05/21/18 07/20/21 History busPIRone HCL 15 mg PO BID 05/21/18 07/20/21 History diphenhydrAMINE [Benadryl] 25 mg PO HS 05/21/18 07/20/21 History Glimepiride [Amaryl] 4 mg PO BID 06/20/18 07/20/21 History Cetirizine HCl [Zyrtec] 10 mg PO DAILY 09/20/18 07/20/21 History Metoprolol Succinate [Toprol XL] 25 mg PO HS 09/20/18 07/20/21 History QUEtiapine FUMARATE [SEROquel] 25 mg PO BID 09/20/18 07/20/21 History Albuterol Sulfate [Ventolin HFA] 2 puff INHALATION RT-Q6H PRN 07/20/21 07/20/21 History Butalb/APAP/Caff 50-325-40Mg 1 tab PO TID PRN 07/20/21 07/20/21 History [Fioricet 50-325-40] DULoxetine HCL [Cymbalta] 60 mg PO DAILY 07/20/21 07/20/21 History HYDROcodone/APAP 7.5-325MG [[place] 1 tab PO BID PRN 07/20/21 07/20/21 History 7.5-325] Insulin Glargine,Hum.rec.anlog 8 unit SQ TID-W/MEALS 07/20/21 07/20/21 History [Lantus Solostar Pen] Nicotine 14Mg/24Hr Patch [Habitrol] 1 patch TOPICAL DIRECTED PRN 07/20/21 07/20/21 History Nicotine 21Mg/24Hr Patch [Habitrol] 1 patch TRANSDERM DAILY PRN 07/20/21 07/20/21 History Pregabalin [Lyrica] 150 mg PO TID 07/20/21 07/20/21 History Rosuvastatin [Crestor] 10 mg PO DAILY 07/20/21 07/20/21 History Topiramate 50 mg PO BID 07/20/21 07/20/21 History amLODIPine [Norvasc] 5 mg PO DAILY 07/20/21 07/20/21 History tiZANidine [Zanaflex] 4 mg PO BID PRN 07/20/21 07/20/21 History Allergies Allergy/AdvReac Type Severity Reaction Status Date / Time dicyclomine [From Bentyl] Allergy Lip Verified 03/29/22 15:56 Swelling gabapentin Allergy Lip Verified 07/20/21 15:56 Swelling RIGO Inhibitors AdvReac Cold Verified 07/20/21 15:56 Symptoms cephalexin [From Keflex] AdvReac Flu Verified 07/20/21 15:56 Symptoms cyclobenzaprine AdvReac Extreme Verified 07/20/21 15:56 [From Flexeril] Sedation Iodinated Contrast Media AdvReac Unknown Verified 07/20/21 15:56 [Iodinated Contrast- Oral and IV Dye] ketorolac [From Toradol] AdvReac Extreme Verified 07/20/21 15:56 Sedation metoclopramide [From Reglan] AdvReac Shivering/Gets Verified 07/20/21 15:56 Extremely Cold ondansetron AdvReac Interacts Verified 07/20/21 15:56 [From Zofran (as with hydrochloride)] Seroquel Ammonia Scent AdvReac Fainting Uncoded 07/20/21 13:51 Physical Exam Vitals: Vital Signs Temp Pulse Pulse Resp BP BP Pulse Ox 07/21/21 06:37 97.2 F L 73 16 123/80 07/20/21 22:45 97.4 F L 81 18 185/94 98 07/20/21 20:52 98.9 F 77 14 180/83 97 07/20/21 13:45 99.1 F 94 18 181/81 97 Intake and Output 07/20/21 07/21/21 07/21/21 22:59 06:59 14:59 Other: Weight 130 kg Results CBC & Chem 7: 07/21/21 11:30 07/21/21 11:30 Labs: Abnormal Lab Results - Last 24 Hours (Table) 07/20/21 07/21/21 Range/Units 14:42 07:54 POC Glucose (mg/dL) 279 H 256 H (75-99) mg/dL
[2021-07-21] MEDS: busPIRone HCl 10 MG TAB PO SCH ×2 (16:03→21:09)
--- NOTE | 2021-07-21 16:11 | P.HP ---
Psychiatric H&P - . H&P Date: 07/21/21 History & Physical: Allergies Allergy/AdvReac Type Severity Reaction Status Date / Time dicyclomine From Bentyl Allergy Lip Verified 07/20/21 15:56 Swelling gabapentin Allergy Lip Verified 07/20/21 15:56 Swelling RIGO Inhibitors AdvReac Cold Verified 07/20/21 15:56 Symptoms cephalexin From Keflex AdvReac Flu Verified 07/20/21 15:56 Symptoms cyclobenzaprine AdvReac Extreme Verified 07/20/21 15:56 From Flexeril Sedation Iodinated Contrast Media AdvReac Unknown Verified 07/20/21 15:56 Iodinated Contrast- Oral and IV Dye ketorolac From Toradol AdvReac Extreme Verified 07/20/21 15:56 Sedation metoclopramide From Reglan AdvReac Shivering/Gets Verified 07/20/21 15:56 Extremely Cold ondansetron AdvReac Interacts Verified 07/20/21 15:56 From Zofran (as with hydrochloride) Seroquel Ammonia Scent AdvReac Fainting Uncoded 07/20/21 13:51 Vital Signs Temp 97.2 F L 07/21/21 06:37 Pulse 73 07/21/21 06:37 Resp 16 07/21/21 06:37 BP 123/80 07/21/21 06:37 Pulse Ox 98 07/20/21 22:45 Intake & Output 07/20/21 07/21/21 07/21/21 18:59 06:59 18:59 Weight 132.449 kg 130 kg Laboratory Last Values WBC 6.8 k/uL (3.8-10.6) 07/21/21 11:30 RBC 4.92 m/uL (3.80-5.40) 07/21/21 11:30 Hgb 15.3 gm/dL (11.4-16.0) 07/21/21 11:30 Hct 46.0 % (34.0-46.0) 07/21/21 11:30 MCV 93.4 fL (80.0-100.0) 07/21/21 11:30 MCH 31.0 pg (25.0-35.0) 07/21/21 11:30 MCHC 33.2 g/dL (31.0-37.0) 07/21/21 11:30 RDW 13.5 % (11.5-15.5) 07/21/21 11:30 Plt Count 218 k/uL (150-450) 07/21/21 11:30 MPV 9.3 07/21/21 11: Neutrophils % 70 % 07/21/21 11:30 Lymphocytes % 20 % 07/21/21 11: Monocytes % 6 % 07/21/21 11: Eosinophils % 3 % 07/21/21 11:30 Basophils % 0 % 07/21/21 11:30 Neutrophils # 4.8 k/uL (1.3-7.7) 07/21/21 11: Lymphocytes # 1.4 k/uL (1.0-4.8) 07/21/21 11: Monocytes # 0.4 k/uL (0-1.0) 07/21/21 11: Eosinophils # 0.2 k/uL (0-0.7) 07/21/21 11: Basophils # 0.0 k/uL (0-0.2) 07/21/21 11:30 Sodium 140 mmol/L (137-145) 07/21/21 11:30 Potassium 4.4 mmol/L (3.5-5.1) 07/21/21 11:30 Chloride 106 mmol/L (98-107) 07/21/21 11:30 Carbon Dioxide 24 mmol/L (22-30) 07/21/21 11:30 Anion Gap 10 mmol/L 07/21/21 11:30 BUN 18 mg/dL (7-17) H 07/21/21 11:30 Creatinine 0.76 mg/dL (0.52-1.04) 07/21/21 11:30 Est GFR (CKD-EPI)AfAm >90 (>60 ml/min/1.73 sqM) 07/21/21 11:30 Est GFR (CKD-EPI)NonAf 89 (>60 ml/min/1.73 sqM) 07/21/21 11:30 Glucose 300 mg/dL (74-99) H 07/21/21 11:30 POC Glucose (mg/dL) 278 mg/dL (75-99) H 07/21/21 12:41 POC Glu Molder Labels ID Aranza Pratt 07/21/21 12:41 Calcium 9.1 mg/dL (8.4-10.2) 07/21/21 11:30 Total Bilirubin 0.5 mg/dL (0.2-1.3) 07/21/21 11:30 AST 23 U/L (14-36) 07/21/21 11:30 ALT 25 U/L (4-34) 07/21/21 11:30 Alkaline Phosphatase 84 U/L (38-126) 07/21/21 11:30 Total Protein 6.3 g/dL (6.3-8.2) 07/21/21 11:30 Albumin 3.8 g/dL (3.5-5.0) 07/21/21 11:30 TSH 1.150 mIU/L (0.465-4.680) 07/21/21 11:30 Urine Opiates Screen Not Detected (NotDetected) 07/20/21 14:38 Ur Oxycodone Screen Not Detected (NotDetected) 07/20/21 14:38 Urine Methadone Screen Not Detected (NotDetected) 07/20/21 14:38 Ur Propoxyphene Screen Not Detected (NotDetected) 07/20/21 14:38 Ur Barbiturates Screen Not Detected (NotDetected) 07/20/21 14:38 U Tricyclic Antidepress Not Detected (NotDetected) 07/20/21 14:38 Ur Phencyclidine Scrn Not Detected (NotDetected) 07/20/21 14:38 Ur Amphetamines Screen Not Detected (NotDetected) 07/20/21 14:38 U Methamphetamines Scrn Not Detected (NotDetected) 07/20/21 14:38 U Benzodiazepines Scrn Not Detected (NotDetected) 07/20/21 14:38 Urine Cocaine Screen Not Detected (NotDetected) 07/20/21 14:38 U Marijuana (THC) Screen Not Detected (NotDetected) 07/20/21 14:38 Coronavirus (PCR) Not Detected (Not Detectd) 07/20/21 Unknown 07/21/21 14:25 IDENTIFYING DATA: Patient is a 55 yo female who currently lives with her boyfriend in a house, no kids, collects ssi. HPI: Patient presented to the hospital yesterday via EMS. Apparently patient was suicidal and homicidal. She was endorsing increased stress at home with her boyfriend. Her UDS was negative. Patient was seen today and able to speak a specifications writer. She apparently had arty signed voluntary form however shortly after signed AMA. She was in a wheelchair. She looked to be in significant distress and states that she is having a lot of stress at home. She claims that the more the landlord wants him out of the house very soon. She states that she is trying to find a new place and deal with the move. She states that her boyfriend has a criminal record and a ways released from alf since 2019. She states that he currently works as her caregiver. She states that they've been having significant relationship issues and arguing a lot recently. She states that yesterday he got into an argument and she called the crisis line that brought her into the hospital. She stated in the ER that "if I have to go back there underwent to kill him or me" which got her admitted to the psychiatric unit. She states that she is not having those thoughts any longer and spoke to him over the phone earlier. She states that he wanted to counseling together. She states that she has no guns or weapons of the house. She states that her sleep is poor appetite is fair. He claims that she has a history of bipolar disorder. Patient denies any suicidal or homicidal ideations intent or plan. At this time patient denies any auditory or visual hallucinations. Patient denies any flight of ideas racing thoughts and increased in goal directed behavior. Patient admits to using no recreational drugs or cigarettes PAST PSYCHIATRIC HISTORY: Patient states that she has a history of bipolar disorder. Patient was previously on BuSpar, Benadryl, Seroquel, and Cymbalta. She currently follows up with the nurse practitioner at [facility]. Patient's last psychiatric hospitalization was in 2011 on the mental health unit. Patient denies any history of suicide attempts in the past. Past Medical History: Diabetes Mellitus, Hypertension Additional Past Medical History / Comment(s): Vertigo; Migraines; syncopal epsiodes in the past ALLERGIES: as per EMR CHEMICAL DEPENDENCY HISTORY: as per HPI FAMILY PSYCHIATRIC/SUBSTANCE USE HISTORY: Denies SOCIAL HISTORY: Patient was born and raised in [place]. She states that she completed high school and did some college. 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 They currently live in a house with her boyfriend, no kids collects SSI. MENTAL STATUS EXAM: General Appearance: Patient appears to be overweight, in a wheelchair, stated age is alert, directable, and attempts to cooperate. Patient appears to have poor hygiene and grooming. Behavior: Patient is seated without any agitated behavior. Attempts to cooperate. In mild distress. Speech: Patient's speech is fluent and nonpressured. Mood/Affect: Patient reports their mood is depressed and anxious, affect is congruent and constricted. Suicidality/Homicidality: Patient denies having any homicidal ideation intent or plan. Denies any suicidal ideations intent or plan Perceptions: Patient denies any visual hallucinations and denies any auditory hallucinations Though content/process: [There is no evidence of any delusional thought content and thought process is linear and goal-directed.] Rambles at times. Memory and concentration: AOX3, grossly intact for the purposes of this session. Can spell "WORLD" backwards Judgment and insight: [poor] STRENGTHS/WEAKNESSES: strength is that patient is [resilient]. Weakness is that patient [has poor judgment and is impulsive] INTELLECT: [average] IMPRESSIONS: Bipolar disorder, current episode depressed Nicotine dependence PLAN: -Patient is admitted under [voluntary] status to MHU for stabilization of psychiatric symptoms and safety. Patient has signed [adult voluntary form and] [medication consent] and is placed in patient's chart. Patient also signed an AMA shortly after signing the afv -Medications : Will start patient on BuSpar 20 mg twice a day, continue Benadryl 25 mg daily at bedtime, increase Seroquel to 25 mg daily +100 mg daily at bedtime for mood stabilization/insomnia, increase Cymbalta to 90 mg daily her mood/anxiety. -Ativan [and Haldol] PRN for agitation/aggression -Patient was informed of the risks, benefits and side effects of the medication and patient verbally consented to taking the medications. Patient signed med consent form and was placed in chart. -Internal Medicine consult to perform medical evaluation and physical. -NRT - [nicotine patch] -SW on board for discharge planning. Encourage patient to participate in groups to work on coping skills. Likely discharge in 1-2 days back home. television maintenance worker to call boyfriend for the duty to warn as patient made verbal threats towards him. []
[2021-07-21 17:54] LABS: Glucose,Whole Blood 217 mg/dL (75-99)
[2021-07-21 20:56] LABS: Glucose,Whole Blood 197 mg/dL (75-99)
[2021-07-21] MEDS ORDERED: diphenhydrAMINE 25 MG CAP PO SCH (21:00)
[2021-07-21] MEDS ORDERED: METOPROLOL SUCCINATE (ER) 25 MG TAB.ER.24H PO SCH (21:00)
[2021-07-21] MEDS: QUEtiapine 100 MG TAB PO SCH (21:09)
[2021-07-22 01:59] LABS: Chol/HDL Ratio 6.03 Ratio; LDL Cholesterol,Calculated 90.8 mg/dL (0.0-131.0)
[2021-07-22 07:52] LABS: Glucose,Whole Blood 169 mg/dL (75-99)
[2021-07-22] MEDS: LORATADINE 10 MG TAB PO SCH (08:45)
[2021-07-22] MEDS: amLODIPine 5 MG TAB PO SCH (08:45)
[2021-07-22] MEDS: INSULIN ASPART (NovoLOG) 100 UNIT/ML VIAL SQ SCH ×3 (08:45→21:19)
[2021-07-22] MEDS: PIOGLITAZONE 15 MG TAB PO SCH (08:45)
[2021-07-22] MEDS: GLIMEPIRIDE 4 MG TAB PO SCH ×3 (08:45→21:51)
[2021-07-22] MEDS: ATORVASTATIN 20 MG TAB PO SCH (08:45)
[2021-07-22] MEDS: QUEtiapine 25 MG TAB PO SCH (08:46)
[2021-07-22] MEDS: TOPIRAMATE 25 MG TAB PO SCH ×3 (08:46→21:52)
[2021-07-22] MEDS: busPIRone HCl 10 MG TAB PO SCH ×3 (08:46→21:51)
[2021-07-22] MEDS: PANTOPRAZOLE 40 MG TABLET PO SCH ×3 (08:46→21:52)
[2021-07-22] MEDS: OXYBUTYNIN CHLORIDE 5 MG TAB PO SCH ×3 (08:46→21:52)
[2021-07-22] MEDS: metFORMIN 850 MG TAB PO SCH ×3 (08:46→21:52)
[2021-07-22] MEDS: DULoxetine HCL 30 MG CAPSULE.DR PO SCH (08:47)
[2021-07-22] MEDS: NICOTINE 14MG/24HR PATCH TRANSDERM SCH (08:50)
[2021-07-22] MEDS: LOSARTAN 50 MG TAB PO SCH (09:16)
[2021-07-22] MEDS: LOSARTAN-HCTZ 50-12.5 MG 1 EACH TAB PO SCH (09:17)
[2021-07-22] MEDS: PREGABALIN 75 MG CAP PO SCH ×3 (09:39→21:53)
--- NOTE | 2021-07-22 11:21 | P.PN ---
Progress Note - Text Progress Note Date: 07/22/21 Interval History: Patient was seen sitting in on group today and was directable and agreeable to speak with medical technical writer in the office. Patient was attending to cooperate in group and participating. She is agreeable to speak to medical technical writer. She claimed that she is feeling "a lot calmer" and states that her mood and anxiety than improving. She states that she likes the medication regimen that she is on at this time. She states that she still having the financial stressors at home however was able to speak to her boyfriend over the phone yesterday and realizes that "he needs my help". She continues to be worried about her housing situation however states that she is still trying to look for another apartment with him. She states that she is able to sleep fairly last night and has been getting used to the medications. Her appetite is fair. She claims that she is going to groups and participating best she can. She does appear to be more future oriented. She claims that she is not having anymore thoughts of harm towards her boyfriend and states that she wants to be with him. She was fairly focused on discharge. At this time patient denies any suicidal or homical ideations, intent or plan. Patient denies any auditory, visual hallucinations and denies any paranoia or delusions. Patient denies any side effects from the medications and has been compliant with meds. Mental Status Exam: General Appearance: Patient appears to be overweight, in a wheelchair, stated age is alert, directable, and attempts to cooperate. Patient appears to have poor hygiene and grooming. Behavior: Patient is seated without any agitated behavior. Her cooperative today. Speech: Patient's speech is fluent and nonpressured. Mood/Affect: Patient reports their mood is improving mildly, affect is congruent and constricted. Suicidality/Homicidality: Patient denies having any homicidal ideation intent or plan. Denies any suicidal ideations intent or plan Perceptions: Patient denies any visual hallucinations and denies any auditory hallucinations Though content/process: There is no evidence of any delusional thought content and thought process is linear and goal-directed. Rambles at times. More future oriented. Memory and concentration: AOX3, grossly intact for the purposes of this session. Judgment and insight: imProving mildly. IMPRESSIONS: Bipolar disorder, current episode depressed Nicotine dependence Plan: -Patient continues to meet criteria for inpatient psychiatric admission for symptom stabilization and safety. Patient has signed adult voluntary form and medication consent and was placed in patient's chart. Patient also signed AMA on 07/21. -Medications: Continue BuSpar 20 mg twice a day for anxiety, Benadryl 25 mg daily at bedtime for sleep, Seroquel 25 mg daily +100 mg daily at bedtime for mood stabilization/insomnia, Cymbalta 90 mg daily for mood/anxiety. -When necessary Ativan and Haldol for agitation/aggression. -NRT - nicotine patch -SW on board for discharge planning. Encouraged the patient to participate in milieu. Likely discharge tomorrow back home. fruit or nut farm worker to attempt to call boyfriend and prepare for discharge along with give the duty to warn as patient made verbal threats towards him while in the hospital.
[2021-07-22 12:59] LABS: Glucose,Whole Blood 176 mg/dL (75-99)
--- NOTE | 2021-07-22 16:59 | P.PN ---
Progress Note - Text Progress Note Date: 07/22/21 - Chief Complaint Suicidal Hospital course: This is a pleasant 55-year-old patient who follows with Dr. Mar. Chronic stable medical conditions include diabetes, hypertension, GERD, COPD uses inhalers as needed, peripheral neuropathy, migraines. Patient is going to back pain. And often uses a wheelchair in the kitchen when she has to stand for quite a while. Patient does live with her caregiver/boyfriend Roger. Patient according to document that can on several things . She got over or frustrated with the whole thing. And in the ER felt a bit suicidal homicidal. With no such plans otherwise. No change in her appetite and bowels are good. Good urine output. Admitted for the same. Patient stopped smoking about 4 weeks ago. July 22: Oral intake fair. Accu-Cheks in the higher side. Discussed with patient. Increase Levemir to 18 units. Questions answered. Active Medications Acetaminophen (Acetaminophen Tab 325 Mg Tab) 650 mg PO Q4HR PRN PRN Reason: Pain/Discomfort Acetaminophen/Butalbital/Caffeine (Butalb/Apap/Caff 50-325-40mg Tab) 1 each PO BID PRN PRN Reason: Headache Al Hydroxide/Mg Hydroxide (Mag Hydrox/Al Hydrox/Simeth 30 Ml Cup) 30 ml PO Q4HR PRN PRN Reason: GI Upset Albuterol Sulfate (Albuterol Hfa Inhaler) 2 puff INHALATION RT-Q6H PRN PRN Reason: Shortness Of Breath Amlodipine Besylate (Amlodipine 5 Mg Tab) 5 mg PO DAILY [facility] Last Admin: 07/22/21 08:45 Dose: Not Given Documented by: Atorvastatin Calcium (Atorvastatin 20 Mg Tab) 20 mg PO DAILY [facility] Last Admin: 07/22/21 08:45 Dose: 20 mg Documented by: Buspirone HCl (Buspirone Hcl 10 Mg Tab) 20 mg PO BID [facility] Last Admin: 07/22/21 08:46 Dose: 20 mg Documented by: Diphenhydramine HCl (Diphenhydramine 25 Mg Cap) 25 mg PO HS [facility] Last Admin: 07/21/21 21:09 Dose: 25 mg Documented by: Duloxetine HCl (Duloxetine Hcl 30 Mg Capsule.Dr) 90 mg PO DAILY [facility] Last Admin: 07/22/21 08:47 Dose: 90 mg Documented by: Glimepiride (Glimepiride 4 Mg Tab) 4 mg PO BID [facility] Last Admin: 07/22/21 08:45 Dose: 4 mg Documented by: HCTZ/Losartan Potassium (Losartan-Hctz 50-12.5 Mg 1 Each Tab) 1 each PO DAILY [facility] Last Admin: 07/22/21 09:17 Dose: Not Given Documented by: Haloperidol (Haloperidol 5 Mg Tab) 5 mg PO QID PRN PRN Reason: Agitation or Acute Psychosis Last Admin: 07/21/21 00:59 Dose: 5 mg Documented by: Haloperidol Lactate (Haloperidol Lactate 5 Mg/Ml 1 Ml Vial) 5 mg IM QID PRN PRN Reason: Agitation or Acute Psychosis Hydroxyzine HCl (Hydroxyzine Hcl 50 Mg/Ml 1 Ml Vial) 50 mg IM QID PRN PRN Reason: Agitation or Acute Anxiety Hydroxyzine Pamoate (Hydroxyzine Pamoate 25 Mg Cap) 50 mg PO QID PRN PRN Reason: Agitation or Acute Anxiety Last Admin: 07/21/21 00:59 Dose: 50 mg Documented by: Insulin Aspart (Insulin Aspart (Novolog) 100 Unit/Ml Vial) 5 unit SQ AC-TID [facility] Last Admin: 07/22/21 13:05 Dose: 5 unit Documented by: Insulin Detemir (Insulin Detemir (Levemir) 100 Unit/Ml Syr) 18 unit SQ [facility] Loperamide HCl (Loperamide 2 Mg Cap) 2 mg PO Q6H PRN PRN Reason: Diarrhea Last Admin: 07/21/21 16:03 Dose: 2 mg Documented by: Loratadine (Loratadine 10 Mg Tab) 10 mg PO DAILY [facility] Last Admin: 07/22/21 08:45 Dose: 10 mg Documented by: Losartan Potassium (Losartan 50 Mg Tab) 50 mg PO DAILY [facility] Last Admin: 07/22/21 09:16 Dose: Not Given Documented by: Magnesium Hydroxide (Magnesium Hydroxide 2,400 Mg/10 Ml Cup) 2,400 mg PO DAILY PRN PRN Reason: Constipation Meclizine HCl (Meclizine 25 Mg Tab) 25 mg PO DAILY PRN PRN Reason: Vertigo Metformin HCl (Metformin 850 Mg Tab) 850 mg PO TID [facility] Last Admin: 07/22/21 08:46 Dose: 850 mg Documented by: Metoprolol Succinate (Metoprolol Succinate (Er) 25 Mg Tab.Er.24h) 25 mg PO [facility] Last Admin: 07/21/21 21:09 Dose: 25 mg Documented by: Nicotine (Nicotine 14mg/24hr Patch) 1 patch TRANSDERM DAILY [facility] Last Admin: 07/22/21 08:50 Dose: 1 patch Documented by: Oxybutynin Chloride (Oxybutynin Chloride 5 Mg Tab) 5 mg PO BID [facility] Last Admin: 07/22/21 08:46 Dose: 5 mg Documented by: Pantoprazole Sodium (Pantoprazole 40 Mg Tablet) 40 mg PO BID [facility] Last Admin: 07/22/21 08:46 Dose: 40 mg Documented by: Pioglitazone HCl (Pioglitazone 15 Mg Tab) 15 mg PO DAILY [facility] Last Admin: 07/22/21 08:45 Dose: 15 mg Documented by: Pregabalin (Pregabalin 75 Mg Cap) 150 mg PO TID [facility] Last Admin: 07/22/21 09:39 Dose: 150 mg Documented by: Quetiapine Fumarate (Quetiapine 25 Mg Tab) 25 mg PO DAILY [facility] Last Admin: 07/22/21 08:46 Dose: 25 mg Documented by: Quetiapine Fumarate (Quetiapine 100 Mg Tab) 100 mg PO [facility] Last Admin: 07/21/21 21:09 Dose: 100 mg Documented by: Tizanidine HCl (Tizanidine 4 Mg Tab) 4 mg PO BID PRN PRN Reason: Muscle Pain Topiramate (Topiramate 25 Mg Tab) 50 mg PO BID [facility] Last Admin: 07/22/21 08:46 Dose: 50 mg Documented by: Past medical history to include: Diabetes, hypertension, migraine, bipolar, GERD, peripheral neuropathy, Social history: Smoke tobacco for 38 years stopped about 4 weeks ago. Alcohol occasionally. Lives with her caregiver and boyfriend Roger. Family history: Reviewed, noncontributory to presentation Physical examination: VITAL SIGNS: Afebrile, 63, 16, 98/55, 97% room air GENERAL: sitting up in a chair awake, comfortable EYES: Pupils equal. Conjunctiva normal. Right eye strabismus HEENT: External appearance of nose and ears normal, oral cavity grossly normal. NECK: JVD not raised; masses not palpable. HEART: First and second heart sounds are normal; no edema. LUNGS: Respiratory rate normal; decreased breath sounds. ABDOMEN: Soft, nontender, liver spleen not palpable, no masses palpable. PSYCH: Alert and oriented x3; mood and affect. Anxiousl. MUSCULOSKELETAL:No Clubbing/cyanosis;muscles-grossly intact INVESTIGATIONS, reviewed in the clinical context: Accu-Cheks 169, 176 White count 6.8 hemoglobin 15.3 platelets 218 potassium 4.4 creatinine 0.76 Blood glucose 300 Accu-Cheks 278 Urine drug screen: Negative COVID-19: Negative TSH 1.1 Assessment and plan: -Diabetes mellitus type 2, chronic low insulin, uncontrolled with hyperglycemia Continue Actos, Glucophage, Amaryl. Increase Levemir to 18 units at night. NovoLog 5 units with meals -Hyperlipidemia Crestor 10 mg daily -Chronic low back pain from arthritis [place] 7.5 twice a day takes at home to be given as per [address]. policy -Essential hypertension Amlodipine 5 mg a day Toprol-XL 25 mg daily at bedtime Hyzaar 100/12.5 one ta blet daily -Diabetic peripheral neuropathy Medical 150 mg twice a day -Urinary stress incontinence Oxybutynin 5 mg twice a day -GERD Prilosec 20 mg twice a day -Bipolar disorder Medications to be just as per psychiatry Discussed with patient. Increase Levemir to 18 units at night. Other medications to continue. Thank Dr. Hernandez
[2021-07-22 18:04] LABS: Glucose,Whole Blood 138 mg/dL (75-99)
[2021-07-22 19:55] LABS: Glucose,Whole Blood 205 mg/dL (75-99)
[2021-07-22] MEDS: diphenhydrAMINE 25 MG CAP PO SCH ×2 (21:21→21:51)
[2021-07-22] MEDS: METOPROLOL SUCCINATE (ER) 25 MG TAB.ER.24H PO SCH ×2 (21:22→21:52)
[2021-07-22] MEDS: QUEtiapine 100 MG TAB PO SCH ×2 (21:22→21:52)
[2021-07-22] MEDS: INSULIN DETEMIR (LEVEMIR) 100 UNIT/ML SYR SQ SCH ×2 (21:22→21:50)
[2021-07-23 07:48] LABS: Glucose,Whole Blood 173 mg/dL (75-99)
[2021-07-23] MEDS: INSULIN ASPART (NovoLOG) 100 UNIT/ML VIAL SQ SCH ×4 (08:39→13:15)
[2021-07-23] MEDS: NICOTINE 14MG/24HR PATCH TRANSDERM SCH (08:39)
[2021-07-23] MEDS: DULoxetine HCL 30 MG CAPSULE.DR PO SCH (08:40)
[2021-07-23] MEDS: amLODIPine 5 MG TAB PO SCH ×2 (08:40→08:51)
[2021-07-23] MEDS: GLIMEPIRIDE 4 MG TAB PO SCH (08:40)
[2021-07-23] MEDS: LOSARTAN-HCTZ 50-12.5 MG 1 EACH TAB PO SCH ×2 (08:40→08:51)
[2021-07-23] MEDS: ATORVASTATIN 20 MG TAB PO SCH (08:40)
[2021-07-23] MEDS: busPIRone HCl 10 MG TAB PO SCH (08:40)
[2021-07-23] MEDS: LORATADINE 10 MG TAB PO SCH (08:41)
[2021-07-23] MEDS: PANTOPRAZOLE 40 MG TABLET PO SCH (08:41)
[2021-07-23] MEDS: OXYBUTYNIN CHLORIDE 5 MG TAB PO SCH (08:41)
[2021-07-23] MEDS: metFORMIN 850 MG TAB PO SCH (08:41)
[2021-07-23] MEDS: LOSARTAN 50 MG TAB PO SCH ×2 (08:41→08:51)
[2021-07-23] MEDS: PIOGLITAZONE 15 MG TAB PO SCH (08:41)
[2021-07-23] MEDS: QUEtiapine 25 MG TAB PO SCH (08:42)
[2021-07-23] MEDS: TOPIRAMATE 25 MG TAB PO SCH (08:42)
[2021-07-23] MEDS: PREGABALIN 75 MG CAP PO SCH (08:42)
[2021-07-23 09:24] VITALS: BP 102/62; PULSE 62; RESP 16; TEMP 97
--- NOTE | 2021-07-23 10:29 | P.DS ---
Providers Date of admission: 07/20/21 21:18 Expected date of discharge: 07/23/21 Attending physician: Nicolas Hernandez MD Consults: 07/20/21 22:45 Consult Physician Routine Consulting Provider: Lennox Silverman Consult Reason/Comments: H&P and medical Do you want consulting provider notified?: Yes Primary care physician: Natacha Mar - Discharge Diagnosis(es) (1) Bipolar disorder current episode depressed Current Visit: Yes Status: Acute Priority: High (2) Nicotine dependence Current Visit: Yes Status: Acute Priority: Low Hospital Course: Admission HPI: Admission note was completed by automotive service writer "Patient is a 55 yo female who currently lives with her boyfriend in a house, no kids, collects ssi. Patient presented to the hospital yesterday via EMS. Apparently patient was suicidal and homicidal. She was endorsing increased stress at home with her boyfriend. Her UDS was negative. Patient was seen today and able to speak a automotive service writer. She apparently had arty signed voluntary form however shortly after signed AMA. She was in a wheelchair. She looked to be in significant distress and states that she is having a lot of stress at home. She claims that the more the landlord wants him out of the house very soon. She states that she is trying to find a new place and deal with the move. She states that her boyfriend has a criminal record and a ways released from residential since 2019. She states that he currently works as her caregiver. She states that they've been having significant relationship issues and arguing a lot recently. She states that yesterday he got into an argument and she called the crisis line that brought her into the hospital. She stated in the ER that "if I have to go back there underwent to kill him or me" which got her admitted to the psychiatric unit. She states that she is not having those thoughts any longer and spoke to him over the phone earlier. She states that he wanted to counseling together. She states that she has no guns or weapons of the house. She states that her sleep is poor appetite is fair. He claims that she has a history of bipolar disorder. Patient denies any suicidal or homicidal ideations intent or plan. At this time patient denies any auditory or visual hallucinations. Patient denies any flight of ideas racing thoughts and increased in goal directed behavior. Patient admits to using no recreational drugs or cigarettes" Hospital course: Upon admission to the unit patient was directable and agreeable to commence treatment and signed adult voluntary form. Soon after being admitted and signing voluntary, patient decided to sign AMA. Patient got along well with other patients on the unit and followed unit protocol. Patient was compliant with the medications and denied any side effects throughout hospital course. Patient was started on BuSpar however was increased to 20 mg twice a day for anxiety, restarted back on Benadryl 25 mg daily at bedtime for sleep, restarted on Sero quel however increased to 25 mg daily +100 mg daily at bedtime for mood stabilization/insomnia, Cymbalta was restarted however increased to a dose of 90 mg daily for mood/anxiety. Patient spoke of her stressors and engaged in therapy both group and individual. Patient was also seen by medical team for history and physical exam. Throughout the course of the hospitalization patient gradually improved with regards to mood, anxiety, sleep and returned back to their baseline level of functioning. On the day of discharge patient denied any suicidal or homicidal ideations intent or plan denied any auditory or visual hallucinations. Patient endorsed wanting to live for her future and her health. The patient denied any access to guns or weapons. Patient denied any paranoia and did not endorse any delusions. Patient does not have a significant history of substance abuse however was counseled on abstaining from all substances including alcohol and marijuana. Patient was also counseled on the medications and need for regular compliance and was encouraged to follow-up with their outpatient appointment for mental health and also for primary care. Prior to discharge a family meeting will be arranged by school social worker to answer any questions and ensure safety upon discharge. tailings worker also will reach out to and communicate Duty to warn to patients boyfriend as she made threats tow ards him when she was initially hospitalized. Mental status exam: General Appearance: Patient appears to be overweight, in a wheelchair, older than stated age is alert, directable, and cooperative. Patient is in no acute distress and has improved hygiene and grooming Behavior: Patient is calmly seated without any agitated behavior. Speech: Patient's speech is fluent and nonpressured. Mood/Affect: Patient reports their mood is "better", affect is congruent and euthymic. Suicidality/Homicidality: Patient denies having any suicidal or homicidal ideation intent or plan. Perceptions: Patient denies any auditory or visual hallucinations. Though content/process: There is no evidence of any delusional thought content and thought process is linear and goal-directed. more future oriented Memory and concentration: AOX3, grossly intact for the purposes of this session. Can spell "WORLD" backwards correctly. Judgment and insight: chronically poor, however has improved with guarded prognosis Impression: Bipolar disorder, current episode depressed Nicotine dependence Plan: -Continue with discharge today as patient has improved and stabilized psychiatrically and is not currently an imminent threat to herself and/or others. Patient will remain at chronically elevated risk for harm to self and/or others due to her impulsivity and chronically poor insight and judgment. -Continue medications: BuSpar 20 mg twice a day for anxiety, Benadryl 25 mg daily at bedtime for sleep, Seroquel 25 mg daily +100 mg daily at bedtime for mood stabilization/insomnia, Cymbalta 90 mg daily for mood/anxiety. -Patient was counseled on the need for medication compliance and appropriate follow-up at mental health and also primary care for medical issues. Patient verbalized understanding and agreed. -Social work to arrange for and conduct family meeting to ensure safety upon discharge and answer any questions/concerns. Social work also to arrange for patients follow up appointments for psychiatric care along with follow up with primary care provider. SW will also ensure that we fullfill duty to warn and let boyfriend know about patients verbal threats towards him when she was hospitalized. Patient is no longer making those threats -Patient counseled on abstaining from recreational drugs and marijuana and alcohol. Was informed/educated on the adverse effects on their physical and mental health. Patient verbally agreed and understood. -Patient was instructed to return to the hospital or seek immediate medical care if their psychiatric or medical symptoms do worsen or reoccur. Allergies Allergy/AdvReac Type Severity Reaction Status Date / Time dicyclomine [From Bentyl] Allergy Lip Verified 07/20/21 15:56 Swelling gabapentin Allergy Lip Verified 07/20/21 15:56 Swelling RIGO Inhibitors AdvReac Cold Verified 07/20/21 15:56 Symptoms cephalexin [From Keflex] AdvReac Flu Verified 07/20/21 15:56 Symptoms cyclobenzaprine AdvReac Extreme Verified 07/20/21 15:56 [From Flexeril] Sedation Iodinated Contrast Media AdvReac Unknown Verified 07/20/21 15:56 [Iodinated Contrast- Oral and IV Dye] ketorolac [From Toradol] AdvReac Extreme Verified 07/20/21 15:56 Sedation metoclopramide [From Reglan] AdvReac Shivering/Gets Verified 07/20/21 15:56 Extremely Cold ondansetron AdvReac Interacts Verified 07/20/21 15:56 [From Zofran (as with hydrochloride)] Seroquel Ammonia Scent AdvReac Fainting Uncoded 07/20/21 13:51 Laboratory Results WBC 6.8 k/uL (3.8-10.6) 07/21/21 11:30 RBC 4.92 m/uL (3.80-5.40) 07/21/21 11:30 Hgb 15.3 gm/dL (11.4-16.0) 07/21/21 11:30 Hct 46.0 % (34.0-46.0) 07/21/21 11:30 MCV 93.4 fL (80.0-100.0) 07/21/21 11:30 MCH 31.0 pg (25.0-35.0) 07/21/21 11:30 MCHC 33.2 g/dL (31.0-37.0) 07/21/21 11:30 RDW 13.5 % (11.5-15.5) 07/21/21 11:30 Plt Count 218 k/uL (150-450) 07/21/21 11:30 MPV 9.3 07/21/21 11:30 Neutrophils % 70 % 07/21/21 11:30 Lymphocytes % 20 % 07/21/21 11:30 Monocytes % 6 % 07/21/21 11:30 Eosinophils % 3 % 07/21/21 11:30 Basophils % 0 % 07/21/21 11:30 Neutrophils # 4.8 k/uL (1.3-7.7) 07/21/21 11:30 Lymphocytes # 1.4 k/uL (1.0-4.8) 07/21/21 11:30 Monocytes # 0.4 k/uL (0-1.0) 07/21/21 11:30 Eosinophils # 0.2 k/uL (0-0.7) 07/21/21 11:30 Basophils # 0.0 k/uL (0-0.2) 07/21/21 11:30 Sodium 140 mmol/L (137-145) 07/21/21 11:30 Potassium 4.4 mmol/L (3.5-5.1) 07/21/21 11:30 Chloride 106 mmol/L (98-107) 07/21/21 11:30 Carbon Dioxide 24 mmol/L (22-30) 07/21/21 11:30 Anion Gap 10 mmol/L 07/21/21 11:30 BUN 18 mg/dL (7-17) H 07/21/21 11:30 Creatinine 0.76 mg/dL (0.52-1.04) 07/21/21 11:30 Est GFR (CKD-EPI)AfAm >90 (>60 ml/min/1.73 sqM) 07/21/21 11:30 Est GFR (CKD-EPI)NonAf 89 (>60 ml/min/1.73 sqM) 07/21/21 11:30 Glucose 300 mg/dL (74-99) H 07/21/21 11:30 POC Glucose (mg/dL) 173 mg/dL (75-99) H 07/23/21 07:46 POC Glu 4Th Grade Teacher ID Gabbie Rodriguez 07/23/21 07:[address] Glu mg/dL 252 07/21/21 11:30 Hemoglobin A1c 10.4 % (0.0-6.0) H 07/21/21 11:30 Calcium 9.1 mg/dL (8.4-10.2) 07/21/21 11:30 Total Bilirubin 0.5 mg/dL (0.2-1.3) 07/21/21 11:30 AST 23 U/L (14-36) 07/21/21 11:30 ALT 25 U/L (4-34) 07/21/21 11:30 Alkaline Phosphatase 84 U/L (38-126) 07/21/21 11:30 Total Protein 6.3 g/dL (6.3-8.2) 07/21/21 11:30 Albumin 3.8 g/dL (3.5-5.0) 07/21/21 11:30 Triglycerides 301.00 mg/dL (0.00-149.00) H 07/21/21 11:30 Cholesterol 181.00 mg/dL (0.00-200.00) 07/21/21 11:30 LDL Cholesterol, Calc 90.8 mg/dL (0.0-131.0) 07/21/21 11:30 VLDL Cholesterol, Calc 60.20 mg/dL (5.00-40.00) H 07/21/21 11:30 HDL Cholesterol 30.00 mg/dL (40.00-60.00) L 07/21/21 11:30 Cholesterol/HDL Ratio 6.03 Ratio 07/21/21 11:30 TSH 1.150 mIU/L (0.465-4.680) 07/21/21 11:30 Urine Opiates Screen Not Detected (NotDetected) 07/20/21 14:38 Ur Oxycodone Screen Not Detected (NotDetected) 07/20/21 14:38 Urine Methadone Screen Not Detected (NotDetected) 07/20/21 14:38 Ur Propoxyphene Screen Not Detected (NotDetected) 07/20/21 14:38 Ur Barbiturates Screen Not Detected (NotDetected) 07/20/21 14:38 U Tricyclic Antidepress Not Detected (NotDetected) 07/20/21 14:38 Ur Phencyclidine Scrn Not Detected (NotDetected) 07/20/21 14:38 Ur Amphetamines Screen Not Detected (NotDetected) 07/20/21 14:38 U Methamphetamines Scrn Not Detected (NotDetected) 07/20/21 14:38 U Benzodiazepines Scrn Not Detected (NotDetected) 07/20/21 14:38 Urine Cocaine Screen Not Detected (NotDetected) 07/20/21 14:38 U Marijuana (THC) Screen Not Detected (NotDetected) 07/20/21 14:38 Coronavirus (PCR) Not Detected (Not Detectd) 07/20/21 Unknown Vital Signs Temp 97.0 F L 07/23/21 09:23 Pulse 62 07/23/21 09:23 Resp 16 07/23/21 09:23 BP 102/62 07/23/21 09:23 Pulse Ox 98 07/23/21 06:44 Patient Condition at Discharge: Stable Plan - Discharge Summary Discharge Rx Participant: No New Discharge Prescriptions: New busPIRone HCl [Buspar] 20 mg PO BID 30 Days tab Loperamide [Imodium] 2 mg PO Q6H PRN cap PRN Reason: Diarrhea INSULIN ASPART (NovoLOG) [NovoLOG (formulary)] 5 unit SQ AC-TID ml QUEtiapine [SEROquel] 100 mg PO HS 30 Days tab DULoxetine HCL [Cymbalta] 90 mg PO DAILY 30 Days Butalb/APAP/Caff 50-325-40Mg [Fioricet 50-325-40] 1 each PO BID PRN tab PRN Reason: Headache Nicotine 14Mg/24Hr Patch [Habitrol] 1 patch TRANSDERM DAILY 14 Days patch QUEtiapine [SEROquel] 25 mg PO DAILY 30 Days tab Continue Ergocalciferol (Vitamin D2) [Vitamin D2] 50,000 unit PO Q7D Meclizine [Antivert] 25 mg PO DAILY PRN PRN Reason: Vertigo metFORMIN HCL [Glucophage] 850 mg PO TID Omeprazole [PriLOSEC] 20 mg PO BID diphenhydrAMINE [Benadryl] 25 mg PO HS Oxybutynin Chloride 5 mg PO BID Pioglitazone [Actos] 15 mg PO DAILY Glimepiride [Amaryl] 4 mg PO BID Metoprolol Succinate [Toprol XL] 25 mg PO HS Cetirizine HCl [Zyrtec] 10 mg PO DAILY Albuterol Sulfate [Ventolin HFA] 2 puff INHALATION RT-Q6H PRN PRN Reason: Shortness Of Breath HYDROcodone/APAP 7.5-325MG [[place] 7.5-325] 1 tab PO BID PRN PRN Reason: Pain Insulin Glargine,Hum.rec.anlog [Lantus Solostar Pen] 15 unit SQ HS Topiramate 50 mg PO BID Pregabalin [Lyrica] 150 mg PO TID Rosuvastatin [Crestor] 10 mg PO DAILY tiZANidine [Zanaflex] 4 mg PO BID PRN PRN Reason: Muscle Pain Discontinued Losartan/Hydrochlorothiazide [Hyzaar 100-12.5 Tablet] 1 tab PO DAILY busPIRone HCL 15 mg PO BID QUEtiapine FUMARATE [SEROquel] 25 mg PO BID amLODIPine [Norvasc] 5 mg PO DAILY Butalb/APAP/Caff 50-325-40Mg [Fioricet 50-325-40] 1 tab PO TID PRN PRN Reason: Migraine Headache DULoxetine HCL [Cymbalta] 60 mg PO DAILY Nicotine 14Mg/24Hr Patch [Habitrol] 1 patch TOPICAL DIRECTED PRN PRN Reason: Nicotine Cravings Nicotine 21Mg/24Hr Patch [Habitrol] 1 patch TRANSDERM DAILY PRN PRN Reason: Nicotine Cravings Discharge Medication List Ergocalciferol (Vitamin D2) [Vitamin D2] 50,000 unit PO Q7D 05/13/16 [History] Meclizine [Antivert] 25 mg PO DAILY PRN 05/13/16 [History] Omeprazole [PriLOSEC] 20 mg PO BID 05/13/16 [History] metFORMIN HCL [Glucophage] 850 mg PO TID 05/13/16 [History] Oxybutynin Chloride 5 mg PO BID 05/21/18 [History] Pioglitazone [Actos] 15 mg PO DAILY 05/21/18 [History] diphenhydrAMINE [Benadryl] 25 mg PO HS 05/21/18 [History] Glimepiride [Amaryl] 4 mg PO BID 06/20/18 [History] Cetirizine HCl [Zyrtec] 10 mg PO DAILY 09/20/18 [History] Metoprolol Succinate [Toprol XL] 25 mg PO HS 09/20/18 [History] Albuterol Sulfate [Ventolin HFA] 2 puff INHALATION RT-Q6H PRN 07/20/21 [History] HYDROcodone/APAP 7.5-325MG [[place] 7.5-325] 1 tab PO BID PRN 07/20/21 [History] Insulin Glargine,Hum.rec.anlog [Lantus Solostar Pen] 15 unit SQ HS 07/20/21 [History] Pregabalin [Lyrica] 150 mg PO TID 07/20/21 [History] Rosuvastatin [Crestor] 10 mg PO DAILY 07/20/21 [History] Topiramate 50 mg PO BID 07/20/21 [History] tiZANidine [Zanaflex] 4 mg PO BID PRN 07/20/21 [History] Butalb/APAP/Caff 50-325-40Mg [Fioricet 50-325-40] 1 each PO BID PRN tab 07/23/21 [Rx] DULoxetine HCL [Cymbalta] 90 mg PO DAILY 30 Days 07/23/21 [Rx] INSULIN ASPART (NovoLOG) [NovoLOG (formulary)] 5 unit SQ AC-TID ml 07/23/21 [Rx] Loperamide [Imodium] 2 mg PO Q6H PRN cap 07/23/21 [Rx] Nicotine 14Mg/24Hr Patch [Habitrol] 1 patch TRANSDERM DAILY 14 Days patch 07/23/21 [Rx] QUEtiapine [SEROquel] 25 mg PO DAILY 30 Days tab 07/23/21 [Rx] QUEtiapine [SEROquel] 100 mg PO HS 30 Days tab 07/23/21 [Rx] busPIRone HCl [Buspar] 20 mg PO BID 30 Days tab 07/23/21 [Rx] Follow up Appointment(s)/Referral(s): [facility] [Outside] - 07/27/21 10:00 am (07/27 at 10 am with Anna Sandra 08/05 at 1 pm with Josey Iglesias NP) Natacha Mar MD [Primary Care Provider] - 1-2 days Patient Instructions/Handouts: How to Stop Smoking (DC), Bipolar Disorder (DC) Activity/Diet/Wound Care/Special Instructions: Activity and diet as tolerated. Avoid the use of street drugs and alcohol. Take all medications as prescribed. When you are in need of refills on your medications please contact your medical provider and/or outpatient psychiatrist to have this done. Please go to scheduled outpatient appointment for aftercare treatment. If symptoms return or become worse, call the crisis line at and/or go to the nearest emergency room for evaluation Discharge Disposition: HOME SELF-CARE
[2021-07-23] MEDS: LOPERAMIDE 2 MG CAP PO PRN (12:30)
[2021-07-23 12:50] LABS: Glucose,Whole Blood 186 mg/dL (75-99)
[2021-07-23 13:19] VITALS: BMI 36.8
== END 2021-07-23 13:49 | disposition home or self-care (01) | DRG 885 ==
LOC: EC 13:14 → 3MHU 21:18
PROVIDERS: ADMIT Psychiatry & Neurology Psychiatry; ATTEND Psychiatry & Neurology Psychiatry
DX: F31.30 Bipolar disorder, current episode depressed, mild or moderate severity, unspecified (principal); F23 Brief psychotic disorder; R45.851 Suicidal ideations; Z71.51 Drug abuse counseling and surveillance of drug abuser; R45.850 Homicidal ideations; F41.9 Anxiety disorder, unspecified; E11.42 Type 2 diabetes mellitus with diabetic polyneuropathy; E11.65 Type 2 diabetes mellitus with hyperglycemia; E78.5 Hyperlipidemia, unspecified; F17.210 Nicotine dependence, cigarettes, uncomplicated; G43.909 Migraine, unspecified, not intractable, without status migrainosus; G47.00 Insomnia, unspecified; G89.29 Other chronic pain; I10 Essential (primary) hypertension; K21.9 Gastro-esophageal reflux disease without esophagitis; K59.00 Constipation, unspecified; M19.90 Unspecified osteoarthritis, unspecified site; N39.3 Stress incontinence (female) (male); Z79.4 Long term (current) use of insulin; Z79.899 Other long term (current) drug therapy; Z88.8 Allergy status to other drugs, medicaments and biological substances; Z88.1 Allergy status to other antibiotic agents
CPT/HCPCS: 36415; 80053; 80061; 80306; 82075; 83036; 84443; 85025; 87635; 99285

== ENCOUNTER → 2021-12-29 | Outpatient (CLI) | payer OTHER ==
--- NOTE | 2021-12-31 11:29 | MM ---
Reason for Exam: Screening (asymptomatic). Last mammogram was performed 4 year(s) and 8 month(s) ago. Patient History: Menarche at age 13. Patient has no children. Other cancer. Maternal unspecified had breast cancer. Risk Values: Lela 5 year model risk: 1.4%. NCI Lifetime model risk: 8.9%. Prior Study Comparison: 06/24/2013 Bilateral Screening Mammogram, [facility]. 05/17/2017 Bilateral Screening Mammogram, [facility]. Tissue Density: The breast tissue is almost entirely fat. Findings: Analyzed By CAD. No discrete abnormality. Overall Assessment: Negative, BI-RAD 1 Management: Screening Mammogram of both breasts in 1 year. A clinical breast exam by your physician is recommended on an annual basis and results should be correlated with mammographic findings. Electronically signed and approved by: Abraham Melgar M.D. Radiologist
== END | disposition home or self-care (01) ==
LOC: RADMAMWWP 14:36
PROVIDERS: ATTEND Family Medicine
DX: Z12.31 Encounter for screening mammogram for malignant neoplasm of breast (principal); Z85.3 Personal history of malignant neoplasm of breast
CPT/HCPCS: 77063; 77067

== ENCOUNTER 2022-11-26 19:04 | Emergency (ER) | payer OTHER ==
--- NOTE | 2022-11-26 21:05 | ED ---
General Adult HPI - General Chief complaint: Headache Stated complaint: Headache, Dizziness Time Seen by Provider: 11/26/22 20:27 Source: patient, EMS Mode of arrival: EMS Limitations: physical limitation - History of Present Illness Initial comments: 57-year-old female with past medical history significant for obesity, hypertension, diabetes presents the emergency department with a chief complaint of high blood pressure. Patient was sent via EMS. She reports that she has not taken her blood pressure medications in over a month. She took her blood pressure prior to arrival and got high readings. She called EMS to confirm her blood pressure was as high as it was. She denies any specific complaints during the initial history and physical exam. She verbalizes that she would like to be discharged home at that time. - Related Data Home Medications Medication Instructions Recorded Confirmed Ergocalciferol (Vitamin D2) 50,000 unit PO Q7D 05/13/16 07/20/21 [Vitamin D2] Meclizine [Antivert] 25 mg PO DAILY PRN 05/13/16 07/20/21 Omeprazole [PriLOSEC] 20 mg PO BID 05/13/16 07/20/21 metFORMIN HCL [Glucophage] 850 mg PO TID 05/13/16 07/20/21 Oxybutynin Chloride 5 mg PO BID 05/21/18 07/20/21 Pioglitazone [Actos] 15 mg PO DAILY 05/21/18 07/20/21 diphenhydrAMINE [Benadryl] 25 mg PO HS 05/21/18 07/20/21 Glimepiride [Amaryl] 4 mg PO BID 06/20/18 07/20/21 Cetirizine HCl [Zyrtec] 10 mg PO DAILY 09/20/18 07/20/21 Metoprolol Succinate [Toprol XL] 25 mg PO HS 09/20/18 07/20/21 Albuterol Sulfate [Ventolin HFA] 2 puff INHALATION RT-Q6H PRN 07/20/21 07/20/21 HYDROcodone/APAP 7.5-325MG [[place] 1 tab PO BID PRN 07/20/21 07/20/21 7.5-325] Insulin Glargine,Hum.rec.anlog 15 unit SQ HS 07/20/21 07/21/21 [Lantus Solostar Pen] Pregabalin [Lyrica] 150 mg PO TID 07/20/21 07/20/21 Rosuvastatin [Crestor] 10 mg PO DAILY 07/20/21 07/20/21 Topiramate 50 mg PO BID 07/20/21 07/20/21 tiZANidine [Zanaflex] 4 mg PO BID PRN 07/20/21 07/20/21 Previous Rx's Medication Instructions Recorded Butalb/APAP/Caff 50-325-40Mg 1 each PO BID PRN tab 07/23/21 [Fioricet 50-325-40] DULoxetine HCL [Cymbalta] 90 mg PO DAILY 30 Days 07/23/21 INSULIN ASPART (NovoLOG) [NovoLOG 5 unit SQ AC-TID ml 07/23/21 (formulary)] Loperamide [Imodium] 2 mg PO Q6H PRN cap 07/23/21 Nicotine 14Mg/24Hr Patch [Habitrol] 1 patch TRANSDERM DAILY 14 Days 07/23/21 patch QUEtiapine [SEROquel] 25 mg PO DAILY 30 Days tab 07/23/21 QUEtiapine [SEROquel] 100 mg PO HS 30 Days tab 07/23/21 busPIRone HCl [Buspar] 20 mg PO BID 30 Days tab 07/23/21 Allergies Allergy/AdvReac Type Severity Reaction Status Date / Time dicyclomine [From Bentyl] Allergy Lip Verified 07/20/21 15:56 Swelling gabapentin Allergy Lip Verified 07/20/21 15:56 Swelling RIGO Inhibitors AdvReac Cold Verified 07/20/21 15:56 Symptoms cephalexin [From Keflex] AdvReac Flu Verified 07/20/21 15:56 Symptoms cyclobenzaprine AdvReac Extreme Verified 07/20/21 15:56 [From Flexeril] Sedation Iodinated Contrast Media AdvReac Unknown Verified 07/20/21 15:56 [Iodinated Contrast- Oral and IV Dye] ketorolac [From Toradol] AdvReac Extreme Verified 07/20/21 15:56 Sedation metoclopramide [From Reglan] AdvReac Shivering/Gets Verified 07/20/21 15:56 Extremely Cold ondansetron AdvReac Interacts Verified 07/20/21 15:56 [From Zofran (as with hydrochloride)] Seroquel Ammonia Scent AdvReac Fainting Uncoded 07/20/21 13:51 Review of Systems ROS Statement: Those systems with pertinent positive or pertinent negative responses have been documented in the HPI. ROS Other: All systems not noted in ROS Statement are negative. Past Medical History Past Medical History: Diabetes Mellitus, Hypertension Additional Past Medical History / Comment(s): Vertigo; Migraines; syncopal epsiodes in the past History of Any Multi-Drug Resistant Organisms: None Reported Past Surgical History: No Surgical Hx Reported Additional Past Surgical History / Comment(s): Oral surgery Past Psychological History: Anxiety, Bipolar, Depression Smoking Status: Current some day smoker Past Alcohol Use History: None Reported Past Drug Use History: None Reported General Exam - General Exam Comments Initial Comments: General: Alert, in no acute distress Head: atraumatic normocephalic. Eyes PERRL, EOMI intact, mucous membranes moist Respiratory: Lungs clear to auscultation bilaterally Cardiovascular: Rate regular rate and rhythm Abdominal: Soft without guarding or rebound Extremities: Normal inspection with full range of motion and normal capillary refill Neuroogic: alert and oriented 3, CN II-XII intact, able to ambulate with steady gait Skin: warm dry and intact with normal color Limitations: physical limitation Course Vital Signs 11/26/22 11/26/22 11/26/22 19:21 19:45 20:00 Temperature 98.9 F Pulse Rate 95 84 89 Respiratory 20 19 18 Rate Blood Pressure 215/123 169/91 165/92 O2 Sat by Pulse 98 96 96 Oximetry 11/26/22 11/26/22 11/26/22 20:30 20:45 21:00 Temperature 98.6 F Pulse Rate 85 85 83 Respiratory 16 17 18 Rate Blood Pressure 167/80 199/115 187/113 O2 Sat by Pulse 96 96 96 Oximetry 11/26/22 11/26/22 11/26/22 21:25 21:37 21:46 Temperature 98.5 F 98.2 F Pulse Rate 86 85 85 Respiratory 18 16 17 Rate Blood Pressure 210/101 202/99 181/104 O2 Sat by Pulse 95 95 96 Oximetry 11/26/22 11/26/22 11/26/22 22:02 22:50 23:23 Temperature 98.6 F Pulse Rate 85 87 Respiratory 16 18 Rate Blood Pressure 189/95 190/115 186/99 O2 Sat by Pulse 95 95 Oximetry 11/26/22 23:24 Temperature 98.7 F Pulse Rate 81 Respiratory 18 Rate Blood Pressure O2 Sat by Pulse 97 Oximetry - Reevaluation(s) Reevaluation #1: 11/26/22 23:24 Pt reevaluated. Patient has denies symptoms and she would like to be discharged home at this time 11/26/22 23:24 Medical Decision Making - Medical Decision Making Was pt. sent in by a medical professional or institution (, [facility], [facility], urgent care, hospital, or senior care...) When possible be specific @ -[No] Did you speak to anyone other than the patient for history (EMS, parent, family, police, friend...)? What history was obtained from this source @ -EMS Did you review nursing and triage notes (agree or disagree)? Why? @ -[I reviewed and agree with nursing and triage notes] Were old charts reviewed (outside hosp., previous admission, EMS record, old EKG, old radiological studies, urgent care reports/EKG's, senior care records)? Report findings @ -[No old charts were reviewed] Differential Diagnosis (chest pain, altered mental status, abdominal pain women, abdominal pain men, vaginal bleeding, weakness, fever, dyspnea, syncope, headache, dizziness, GI bleed, back pain, seizure, CVA, palpatations, mental health, musculoskeletal)? @ -[not applicable] EKG interpreted by me (3pts min.). @ -[As above] X-rays interpreted by me (1pt min.). @ -[None done] CT interpreted by me (1pt min.). @ -[None done] U/S interpreted by me (1pt. min.). @ -[None done] What testing was considered but not performed or refused? (CT, X-rays, U/S, labs)? Why? @ -[None] What meds were considered but not given or refused? Why? @ -[None] Did you discuss the management of the patient with other professionals (professionals i.e. [facility] Ocampo, [facility], lab, RT, psych nurse, social worker palliative care, hand stamper, teacher, professional security officer, case assistant)? Give summary @ -[No] Was smoking cessation discussed for >3mins.? @ -[No] Was critical care preformed (if so, how long)? @ -[No] Were there social determinants of health that impacted care today? How? (Homelessness, low income, unemployed, alcoholism, drug addiction, transportation, low edu. Level, literacy, decrease access to med. care, [facility], rehab)? @ -[No] Was there de-escalation of care discussed even if they declined (Discuss DNR or withdrawal of care, Hospice)? DNR status @ -[No] What co-morbidities impacted this encounter? (DM, HTN, Smoking, COPD, CAD, Cancer, CVA, ARF, Chemo, Hep., AIDS, mental health diagnosis, sleep apnea, morbid obesity)? @ -[None] Was patient admitted / discharged? Hospital course, mention meds given and route, prescriptions, significant lab abnormalities, going to OR and other pertinent info. @ -Discharged. This is a pleasant 57-year-old female with past medical history significant for obesity, hypertension, diabetes. Patient had a thorough history and physical exam performed in the emergency department. Physical exam is essentially unremarkable. Rhythm, auscultation bilaterally abdomen soft and nontender. No focal neuro deficits patient able to move all extremities freely. During the course of the emergency department she denies any specific complaints including headache, dizziness, vision loss, vision changes. She is declining any laboratory studies or imaging studies. Patient verbalized that she would like to go home. She verbalizes that she only wanted an accurate management of her blood pressure. She reports that she has been noncompliant with her hypertension medications as there is discussed. Return precautions were discussed at length. Verbalized understanding and all q uestions were addressed. Patient was strongly encouraged to take her medications as prescribed. She was also encouraged to keep a blood pressure log and record her PE he bleeding in the morning and afternoon. Recommend close follow-up with PCP in 1-2 days. I discharged home in stable condition. Blood pressure is 180/90's upon discharge. Case discussed with LUCERO Ribera who agrees with plan of care. Undiagnosed new problem with uncertain prognosis? @ -[No] Drug Therapy requiring intensive monitoring for toxicity (Heparin, Nitro, Insulin, Cardizem)? @ -[No] Were any procedures done? @ -[No] Diagnosis/symptom? @ -HTN Acute, or Chronic, or Acute on Chronic? @ -Aacute Uncomplicated (without systemic symptoms) or Complicated (systemic symptoms)? @ -Uncomplicated Side effects of treatment? @ -[No] Exacerbation, Progression, or Severe Exacerbation? @ -[No] Poses a threat to life or bodily function? How? (Chest pain, [place], [place], pneumonia, PE, COPD, DKA, ARF, appy, cholecystitis, CVA, Diverticulitis, Homicidal, Suicidal, threat to staff... and all critical care pts) @ -moderate likelihood Disposition Clinical Impression: Hypertension Disposition: HOME SELF-CARE Condition: Stable Instructions (If sedation given, give patient instructions): Acute Headache (ED), Chronic Hypertension (ED) Additional Instructions: Please take your blood pressure medications as prescribed please record blood pressure log and take blood pressure and morning and night Please return to the nearest emergency department symptoms worsen or persist Is patient prescribed a controlled substance at d/c from ED?: No Referrals: Bobo Perdue MD [Primary Care Provider] - 1-2 days Time of Disposition: 21:09
[2022-11-26 22:53] VITALS: RESP 18
[2022-11-26 23:23] VITALS: BP 186/99
[2022-11-26 23:26] VITALS: PULSE 81; TEMP 98.7
== END 2022-11-26 23:36 | disposition home or self-care (01) ==
LOC: EC 19:04
DX: I10 Essential (primary) hypertension (principal); E11.9 Type 2 diabetes mellitus without complications; E66.9 Obesity, unspecified; F17.200 Nicotine dependence, unspecified, uncomplicated; Z79.4 Long term (current) use of insulin; Z79.84 Long term (current) use of oral hypoglycemic drugs; Z79.899 Other long term (current) drug therapy; Z88.1 Allergy status to other antibiotic agents; Z88.5 Allergy status to narcotic agent; Z91.041 Radiographic dye allergy status; Z88.8 Allergy status to other drugs, medicaments and biological substances; Z68.41 Body mass index [BMI] 40.0-44.9, adult
CPT/HCPCS: 99284

== ENCOUNTER → 2023-06-01 | Outpatient (CLI) | payer OTHER ==
--- NOTE | 2023-06-02 12:50 | MM ---
Reason for Exam: Screening (asymptomatic). Last mammogram was performed 1 year(s) and 5 month(s) ago. Patient History: Menarche at age 13. Patient has no children. Postmenopausal. Other cancer. Maternal cousin had breast cancer, age 55. Risk Values: Lela 5 year model risk: 1.4%. NCI Lifetime model risk: 8.7%. Prior Study Comparison: 06/24/2013 Bilateral Screening Mammogram, [facility]. 05/17/2017 Bilateral Screening Mammogram, [facility]. 12/29/2021 Bilateral MG 3D screening mammo w/cad, [facility]. Tissue Density: There are scattered fibroglandular densities. Findings: Analyzed By CAD. There is no suspicious group of microcalcifications or new suspicious mass in either breast. Benign calcification. A chronic retroareolar nodule stable. Overall Assessment: Benign, BI-RAD 2 Management: Screening Mammogram of both breasts in 1 year. . Patient should continue monthly self-breast exams. A clinical breast exam by your physician is recommended on an annual basis. This exam should not preclude additional follow-up of suspicious palpable abnormalities. Note on Lela scores and lifetime risk: 1. A Lela score greater than 3% is considered moderate risk. If this is the case, consider specialist referral to assess eligibility for a risk reducing agent. 2. If overall lifetime risk for the development of breast cancer is 20% or higher, the patient may qualify for future screening with alternating mammogram and breast MRI. Electronically signed and approved by: Daniel Lepe M.D. Radiologis
== END | disposition home or self-care (01) ==
LOC: RADMAMWWP 11:59
PROVIDERS: ATTEND Family Medicine
DX: Z12.31 Encounter for screening mammogram for malignant neoplasm of breast (principal); Z80.3 Family history of malignant neoplasm of breast; Z78.0 Asymptomatic menopausal state
CPT/HCPCS: 77063; 77067

== ENCOUNTER 2023-11-15 08:51 | Observation (INO) | payer OTHER ==
[2023-11-15 09:52] LABS: Basophils % (A) 0 %; Eosinophils # (A) 0.1 k/uL (0-0.7); Eosinophils % (A) 2 %; HCT 45.3 % (34.0-46.0); HGB 15.4 gm/dL (11.4-16.0); Lymphocytes % (A) 23 %; MCH 30.5 pg (25.0-35.0); MCHC 33.9 g/dL (31.0-37.0); MCV 89.8 fL (80.0-100.0); Mean Platelet Volume 10.2; Monocytes # (A) 0.4 k/uL (0-1.0); Monocytes % (A) 5 %; Neutrophils % (A) 69 %; Platelet Count 229 k/uL (150-450); RBC 5.04 m/uL (3.80-5.40); RDW 13.1 % (11.5-15.5); WBC 8.6 k/uL (3.8-10.6)
--- NOTE | 2023-11-15 10:09 | XR ---
EXAMINATION TYPE: XR chest 2V DATE OF EXAM: 11/15/2023 10:05 AM COMPARISON: Chest radiographs from 11/26/2018 TECHNIQUE: XR chest 2V Frontal and lateral views of the chest. CLINICAL INDICATION:Female, 58 years old with history of difficulty breathing; FINDINGS: Lungs/Pleura: There is no evidence of pleural effusion, focal consolidation, or pneumothorax. Pulmonary vascularity: Unremarkable. Heart/mediastinum: Cardiomediastinal silhouette is unremarkable. Musculoskeletal: No acute osseous pathology. Multilevel degenerative disc disease. IMPRESSION: No acute cardiopulmonary disease/process.
--- NOTE | 2023-11-15 10:11 | ED ---
General Adult HPI - General Chief complaint: Shortness of Breath Stated complaint: SOB Time Seen by Provider: 11/15/23 08:53 Source: patient, RN notes reviewed Mode of arrival: EMS Limitations: no limitations - History of Present Illness Initial comments: 58-year-old female presents emergency department complaint shortness of breath. Patient states she has COPD in which she states she was using her inhaler she got much relief. Patient was given prednisone, DuoNeb by EMS and went this reportedly helped. Patient states she has no chest pain. Denies any dizziness. Patient states that she has had some fevers chills and bodyaches. - Related Data Home Medications Medication Instructions Recorded Confirmed Oxybutynin Chloride 5 mg PO BID PRN 05/21/18 11/15/23 Albuterol Sulfate [Ventolin HFA] 2 puff INHALATION RT-Q6H PRN 07/20/21 11/15/23 Insulin Glargine,Hum.rec.anlog 50 unit SQ HS 07/20/21 11/15/23 [Lantus Solostar Pen] Pregabalin [Lyrica] 150 mg PO TID PRN 07/20/21 11/15/23 tiZANidine [Zanaflex] 4 mg PO BID PRN 07/20/21 11/15/23 Butalb/APAP/Caff 50-325-40Mg 1 tab PO Q8H PRN 11/15/23 11/15/23 [Fioricet 50-325-40] DULoxetine HCL [Cymbalta] 30 mg PO DAILY PRN 11/15/23 11/15/23 HYDROcodone/APAP 10-325MG [[place] 1 tab PO BID PRN 11/15/23 11/15/23 10-325] Hydrocortisone Cream 1 applic TOPICAL DAILY PRN 11/15/23 11/15/23 [Hydrocortisone 2.5% Cream] Loperamide [Imodium] 2 mg PO BID PRN 11/15/23 11/15/23 Losartan/Hydrochlorothiazide 1 tab PO DAILY PRN 11/15/23 11/15/23 [Hyzaar 100-12.5 Tablet] Naproxen [Naprosyn] 500 mg PO BID PRN 11/15/23 11/15/23 Semaglutide [Ozempic] 0.25 mg SQ TH 11/15/23 11/15/23 amLODIPine [Norvasc] 10 mg PO DAILY PRN 11/15/23 11/15/23 busPIRone HCL 15 mg PO HS 11/15/23 11/15/23 clonazePAM [KlonoPIN] 0.5 mg PO DAILY PRN 11/15/23 11/15/23 Previous Rx's Medication Instructions Recorded QUEtiapine [SEROquel] 100 mg PO HS 30 Days tab 07/23/21 Famotidine [Pepcid] 10 mg PO DAILY #30 tab 11/15/23 Famotidine [Pepcid] 20 mg PO BID #30 tablet 11/15/23 Fluticasone Propion/Salmeterol 1 inhalation PO BID #1 each 11/15/23 [Advair 250-50 Diskus] Tiotropium [place] [Spiriva] 18 mcg IH DAILY #1 each 11/15/23 methylPREDNISolone Dose Pack 4 mg PO DIRECTED #1 packet 11/15/23 [Medrol Dose Pack] Allergies Allergy/AdvReac Type Severity Reaction Status Date / Time dicyclomine [From Bentyl] Allergy Lip Verified 11/15/23 11:34 Swelling gabapentin Allergy Lip Verified 11/15/23 11:34 Swelling RIGO Inhibitors AdvReac Cold Verified 11/15/23 11:34 Symptoms cephalexin [From Keflex] AdvReac Flu Verified 11/15/23 11:34 Symptoms cyclobenzaprine AdvReac Extreme Verified 11/15/23 11:34 [From Flexeril] Sedation Iodinated Contrast Media AdvReac Unknown Verified 11/15/23 11:34 [Iodinated Contrast- Oral and IV Dye] ketorolac [From Toradol] AdvReac Extreme Verified 11/15/23 11:34 Sedation metoclopramide [From Reglan] AdvReac Shivering/Gets Verified 11/15/23 11:34 Extremely Cold ondansetron AdvReac Interacts Verified 11/15/23 11:34 [From Zofran (as with hydrochloride)] Seroquel Ammonia Scent AdvReac Fainting Uncoded 11/15/23 08:55 Review of Systems ROS Statement: Those systems with pertinent positive or pertinent negative responses have been documented in the HPI. ROS Other: All systems not noted in ROS Statement are negative. Past Medical History Past Medical History: Diabetes Mellitus, Hypertension Additional Past Medical History / Comment(s): Vertigo; Migraines; syncopal epsiodes in the past History of Any Multi-Drug Resistant Organisms: None Reported Past Surgical History: No Surgical Hx Reported Additional Past Surgical History / Comment(s): Oral surgery Past Psychological History: Anxiety, Bipolar, Depression Smoking Status: Former smoker Past Alcohol Use History: None Reported Past Drug Use History: None Reported General Exam Limitations: no limitations General appearance: alert, in no apparent distress Head exam: Present: atraumatic, normocephalic, normal inspection Eye exam: Present: normal appearance, PERRL, EOMI. Absent: scleral icterus, conjunctival injection, periorbital swelling ENT exam: Present: normal exam, mucous membranes moist Neck exam: Present: normal inspection. Absent: tenderness, meningismus, lymphadenopathy Respiratory exam: Present: wheezes. Absent: normal lung sounds bilaterally, respiratory distress, rales, rhonchi, stridor Cardiovascular Exam: Present: regular rate, normal rhythm, normal heart sounds. Absent: systolic murmur, diastolic murmur, rubs, gallop, clicks Course Vital Signs 11/15/23 11/15/23 11/15/23 08:52 09:50 09:53 Temperature 97.4 F L Pulse Rate 97 Respiratory 24 Rate Blood Pressure 149/70 O2 Sat by Pulse 100 100 100 Oximetry 11/15/23 11/15/23 11/15/23 11:27 11:35 11:36 Temperature Pulse Rate 93 87 93 Respiratory 16 16 20 Rate Blood Pressure 137/73 O2 Sat by Pulse 98 98 Oximetry EKG Findings - EKG Comments: EKG Findings:: EKG performed at 9: 11 rate 99 SD 274 QRS 96 QT/QTc 421/477 sinus rhythm with first-degree block - EKG Results: EKG: interpreted by ERMD Procedures - Sepsis Sepsis Focused Exam #1 Sepsis Focused Exam Date: 11/15/23 Sepsis Focused Exam Time: 11:40 Capillary Refill: < 2 Seconds: Fingers, Toes Peripheral Pulses: Normal: Radial (R), Radial (L), Posterior Tibialis (R), Posterior Tibialis (L), Dorsalis Pedis (R), Dorsalis Pedis (L) Skin Color: Normal for Patient Respiratory Exam: wheezes Cardiovascular Exam: regular rate, normal rhythm Medical Decision Making - Medical Decision Making Fluids given to patient based on ideal body weight of 60 kg Was pt. sent in by a medical professional or institution (DONNELL Ocampo, SECURITY PROJECT MANAGER, urgent c are, hospital, or fpc...) When possible be specific @ -[No] Did you speak to anyone other than the patient for history (EMS, parent, family, police, friend...)? What history was obtained from this source @ -[No] Did you review nursing and triage notes (agree or disagree)? Why? @ -[I reviewed and agree with nursing and triage notes] Were old charts reviewed (outside hosp., previous admission, EMS record, old EKG, old radiological studies, urgent care reports/EKG's, fpc records)? Report findings @ -[No old charts were reviewed] Differential Diagnosis (chest pain, altered mental status, abdominal pain women, abdominal pain men, vaginal bleeding, weakness, fever, dyspnea, syncope, headache, dizziness, GI bleed, back pain, seizure, CVA, palpatations, mental health, musculoskeletal)? @ -Differential Dyspnea: Coronary syndrome, arrhythmia, tamponade, asthma, COPD, pulmonary embolism, pneumonia, pneumothorax, pulmonary effusion, anaphylaxis, diabetic ketoacidosis, flailed chest, pulmonary contusion, diaphragmatic rupture, anemia, neuromuscular, this is not meant to be an all-inclusive list. EKG interpreted by me (3pts min.). @ -[As above] X-rays interpreted by me (1pt min.). @ -Chest x-ray shows COPD changes CT interpreted by me (1pt min.). @ -[None done] U/S interpreted by me (1pt. min.). @ -[None done] What testing was considered but not performed or refused? (CT, X-rays, U/S, labs)? Why? @ -[None] What meds were considered but not given or refused? Why? @ -[None] Did you discuss the management of the patient with other professionals (professionals i.e. DONNELL Ocampo, SECURITY PROJECT MANAGER, lab, RT, psych nurse, social media coordinator, telecommunications project manager, teacher, code enforcement officer, case making machine operator)? Give summary @ -EMH for admission Was smoking cessation discussed for >3mins.? @ -[No] Was critical care preformed (if so, how long)? @ -35 Were there social determinants of health that impacted care today? How? (Homelessness, low income, unemployed, alcoholism, drug addiction, transportation, low edu. Level, literacy, decrease access to med. care, senior care, rehab)? @ -[No] Was there de-escalation of care discussed even if they declined (Discuss DNR or withdrawal of care, Hospice)? DNR status @ -[No] What co-morbidities impacted this encounter? (DM, HTN, Smoking, COPD, CAD, Cancer, CVA, ARF, Chemo, Hep., AIDS, mental health diagnosis, sleep apnea, morbid obesity)? @ -SPORTS COMMENTATOR D Was patient admitted / discharged? Hospital course, mention meds given and route, prescriptions, significant lab abnormalities, going to OR and other pertinent info. @ -Admitted patient presented for increasing dyspnea. Patient did have breathing treatment, steroids prior to arrival EMS. Patient had to have hypokalemia hypomagnesemia. Patient be admitted for continued treatment steroids and electrolyte replacement patient does have noted significant lactic acidosis related to hypoxia, respiratory failure. Patient was given IV fluids based on ideal body weight. Patient did have blood cultures drawn, antibiotics given. Undiagnosed new problem with uncertain prognosis? @ -[No] Drug Therapy requiring intensive monitoring for toxicity (Heparin, Nitro, Insulin, Cardizem)? @ -[No] Were any procedures done? @ -[No] Diagnosis/symptom? @ -COPD for exacerbation, hypomagnesemia, hypokalemia Acute, or Chronic, or Acute on Chronic? @Acute Uncomplicated (without systemic symptoms) or Complicated (systemic symptoms)? @ -Complicated Side effects of treatment? @ -[No] Exacerbation, Progression, or Severe Exacerbation? @ -[No] Poses a threat to life or bodily function? How? (Chest pain, [place], [place], pneumonia, PE, COPD, DKA, ARF, appy, cholecystitis, CVA, Diverticulitis, Homicidal, Suicidal, threat to staff... and all critical care pts) @ -Yes COPD, respiratory failure, sepsis - Lab Data Result diagrams: 11/15/23 09:11 11/15/23 09:11 Lab Results 11/15/23 11/15/23 11/15/23 Range/Units 09:11 09:11 09:11 WBC 8.6 (3.8-10.6) k/uL RBC 5.04 (3.80-5.40) m/uL Hgb 15.4 (11.4-16.0) gm/dL Hct 45.3 (34.0-46.0) % MCV 89.8 (80.0-100.0) fL MCH 30.5 (25.0-35.0) pg MCHC 33.9 (31.0-37.0) g/dL RDW 13.1 (11.5-15.5) % Plt Count 229 (150-450) k/uL MPV 10.2 Neutrophils % 69 % Lymphocytes % 23 % Monocytes % 5 % Eosinophils % 2 % Basophils % 0 % Neutrophils # 6.0 (1.3-7.7) k/uL Lymphocytes # 2.0 (1.0-4.8) k/uL Monocytes # 0.4 (0-1.0) k/uL Eosinophils # 0.1 (0-0.7) k/uL Basophils # 0.0 (0-0.2) k/uL PT 11.2 (10.0-12.5) sec INR 1.0 (<1.2) APTT 22.4 (22.0-30.0) sec Sodium 136 L (137-145) mmol/L Potassium 2.8 L (3.5-5.1) mmol/L Chloride 101 (98-107) mmol/L Carbon Dioxide 21 L (22-30) mmol/L Anion Gap 14 mmol/L BUN 16 (7-17) mg/dL Creatinine 0.93 (0.52-1.04) mg/dL Est GFR (CKD-EPI)AfAm 79 (>60 ml/min/1.73 sqM) Est GFR (CKD-EPI)NonAf 68 (>60 ml/min/1.73 sqM) Glucose 352 H (74-99) mg/dL Lactic Ac Sepsis Rflx Plasma Lactic Acid Julien (0.7-2.0) mmol/L Calcium 8.9 (8.4-10.2) mg/dL Magnesium 1.4 L (1.6-2.3) mg/dL Total Bilirubin 1.1 (0.2-1.3) mg/dL AST 49 H (14-36) U/L ALT 22 (4-34) U/L Alkaline Phosphatase 83 (38-126) U/L Troponin I (0.000-0.034) ng/mL NT-Pro-B Natriuret Pep 81 pg/mL Total Protein 6.3 (6.3-8.2) g/dL Albumin 3.9 (3.5-5.0) g/dL Influenza Type A (PCR) (Not Detectd) Influenza Type B (PCR) (Not Detectd) RSV (PCR) (Not Detectd) SARS-CoV-2 (PCR) (Not Detectd) 11/15/23 11/15/23 11/15/23 Range/Units 09:11 09:11 09:11 WBC (3.8-10.6) k/uL RBC (3.80-5.40) m/uL Hgb (11.4-16.0) gm/dL Hct (34.0-46.0) % MCV (80.0-100.0) fL MCH (25.0-35.0) pg MCHC (31.0-37.0) g/dL RDW (11.5-15.5) % Plt Count (150-450) k/uL MPV Neutrophils % % Lymphocytes % % Monocytes % % Eosinophils % % Basophils % % Neutrophils # (1.3-7.7) k/uL Lymphocytes # (1.0-4.8) k/uL Monocytes # (0-1.0) k/uL Eosinophils # (0-0.7) k/uL Basophils # (0-0.2) k/uL PT (10.0-12.5) sec INR (<1.2) APTT (22.0-30.0) sec Sodium (137-145) mmol/L Potassium (3.5-5.1) mmol/L Chloride (98-107) mmol/L Carbon Dioxide (22-30) mmol/L Anion Gap mmol/L BUN (7-17) mg/dL Creatinine (0.52-1.04) mg/dL Est GFR (CKD-EPI)AfAm (>60 ml/min/1.73 sqM) Est GFR (CKD-EPI)NonAf (>60 ml/min/1.73 sqM) Glucose (74-99) mg/dL Lactic Ac Sepsis Rflx Plasma Lactic Acid Julien 4.5 H* (0.7-2.0) mmol/L Calcium (8.4-10.2) mg/dL Magnesium (1.6-2.3) mg/dL Total Bilirubin (0.2-1.3) mg/dL AST (14-36) U/L ALT (4-34) U/L Alkaline Phosphatase (38-126) U/L Troponin I <0.012 (0.000-0.034) ng/mL NT-Pro-B Natriuret Pep pg/mL Total Protein (6.3-8.2) g/dL Albumin (3.5-5.0) g/dL Influenza Type A (PCR) Not Detected (Not Detectd) Influenza Type B (PCR) Not Detected (Not Detectd) RSV (PCR) Not Detected (Not Detectd) SARS-CoV-2 (PCR) Not Detected (Not Detectd) 11/15/23 Range/Units 10:38 WBC (3.8-10.6) k/uL RBC (3.80-5.40) m/uL Hgb (11.4-16.0) gm/dL Hct (34.0-46.0) % MCV (80.0-100.0) fL MCH (25.0-35.0) pg MCHC (31.0-37.0) g/dL RDW (11.5-15.5) % Plt Count (150-450) k/uL MPV Neutrophils % % Lymphocytes % % Monocytes % % Eosinophils % % Basophils % % Neutrophils # (1.3-7.7) k/uL Lymphocytes # (1.0-4.8) k/uL Monocytes # (0-1.0) k/uL Eosinophils # (0-0.7) k/uL Basophils # (0-0.2) k/uL PT (10.0-12.5) sec INR (<1.2) APTT (22.0-30.0) sec Sodium (137-145) mmol/L Potassium (3.5-5.1) mmol/L Chloride (98-107) mmol/L Carbon Dioxide (22-30) mmol/L Anion Gap mmol/L BUN (7-17) mg/dL Creatinine (0.52-1.04) mg/dL Est GFR (CKD-EPI)AfAm (>60 ml/min/1.73 sqM) Est GFR (CKD-EPI)NonAf (>60 ml/min/1.73 sqM) Glucose (74-99) mg/dL Lactic Ac Sepsis Rflx Y Plasma Lactic Acid Julien (0.7-2.0) mmol/L Calcium (8.4-10.2) mg/dL Magnesium (1.6-2.3) mg/dL Total Bilirubin (0.2-1.3) mg/dL AST (14-36) U/L ALT (4-34) U/L Alkaline Phosphatase (38-126) U/L Troponin I (0.000-0.034) ng/mL NT-Pro-B Natriuret Pep pg/mL Total Protein (6.3-8.2) g/dL Albumin (3.5-5.0) g/dL Influenza Type A (PCR) (Not Detectd) Influenza Type B (PCR) (Not Detectd) RSV (PCR) (Not Detectd) SARS-CoV-2 (PCR) (Not Detectd) Critical Care Time Critical Care Time: Yes Total Critical Care Time: 35 Disposition Clinical Impression: COPD (chronic obstructive pulmonary disease), Hypokalemia, Hypomagnesemia Disposition: ADMITTED IP TO THIS HOSP Condition: Poor Time of Disposition: 10:50
[2023-11-15 10:19] LABS: Partial Thromboplastin Time 22.4 sec (22.0-30.0); Prothrombin Time 11.2 sec (10.0-12.5)
[2023-11-15 10:27] LABS: ALT 22 U/L (4-34); AST 49 U/L (14-36); African American GFR (CKD) 79 (>60 ml/min/1.73 sqM); Albumin 3.9 g/dL (3.5-5.0); Alkaline Phosphatase 83 U/L (38-126); Anion Gap 14 mmol/L; Blood Urea Nitrogen 16 mg/dL (7-17); Calcium 8.9 mg/dL (8.4-10.2); Carbon Dioxide 21 mmol/L (22-30); Chloride 101 mmol/L (98-107); Glucose 352 mg/dL (74-99); Magnesium 1.4 mg/dL (1.6-2.3); Non-African American GFR(CKD) 68 (>60 ml/min/1.73 sqM); Potassium 2.8 mmol/L (3.5-5.1); Sodium 136 mmol/L (137-145); Total Bilirubin 1.1 mg/dL (0.2-1.3); Total Protein 6.3 g/dL (6.3-8.2)
[2023-11-15 10:35] LABS: NT-Pro-B-Type Natriuretic Pept 81 pg/mL
[2023-11-15] MEDS ORDERED: Potassium Replacement Protocol 1 EACH MISC MISCELLANE PRN (10:44)
[2023-11-15] MEDS ORDERED: NALOXONE 0.4 MG/ML 1 ML VIAL IVP PRN (10:50)
[2023-11-15] MEDS ORDERED: IPRATROPIUM-ALBUTEROL 3 ML NEB INHALATION PRN (10:50)
[2023-11-15] MEDS ORDERED: ACETAMINOPHEN TAB 325 MG TAB PO PRN (10:50)
[2023-11-15] MEDS ORDERED: DEXTROSE 50% SYRINGE 50 ML IVP PRN ×2 (10:56)
[2023-11-15] MEDS: IPRATROPIUM-ALBUTEROL 3 ML NEB INHALATION SCH (11:27)
[2023-11-15] MEDS: MAGNESIUM SULFATE-D5W PMX 1 GM in DEXTROSE/WATER 1 100ML.BAG IVPB SCH ×2 (11:28→15:51)
[2023-11-15] MEDS: SODIUM CHLORIDE 0.9% 2,000 ML IV ONE (11:28)
[2023-11-15] MEDS: POTASSIUM CHLORIDE 10 MEQ in WATER FOR INJECTION 1 100ML.BAG IVPB SCH (11:28)
[2023-11-15] MEDS: cefTRIAXone IN SWFI 1,000 MG/10 ML SYRINGE IVP STA (11:30)
[2023-11-15] MEDS: methylPREDNISolone SOD SUCCI 125 MG/2 ML VIAL IV SCH (12:39)
--- NOTE | 2023-11-15 14:38 | P.HPIM ---
History of Present Illness Patient is a 58-year-old female came in with complaints of shortness of breath and to be in COPD exacerbation received systemic steroids and additional treatments after which patient had a significant improvement when I evaluate the patient patient does not have any significant wheezing fairly good air entry to bilateral lung loyd patient received DuoNebs will be discharged today. Patient is saturating at 98% on room on 2 L of oxygen oxygen will be discontinued will ambulate the patient if patient saturates well patient will be discharged patient had a chest x-ray which did not show any pneumonia patient also has electrolyte abnormalities including low potassium of 2.8 which is being aggressively replaced and a low magnesium of 1.4 patient takes hydrochlorothiazide along with losartan at home despite of losartan patient potassium is still low patient will be discharged on 10 mEq of potassium patient blood sugars are high secondary to systemic steroids may be noncompliant as well, patient will increase her insulin from 50 units to 70 units while on steroids patient will be discharged on a very short taper of steroids. Patient quit smoking started back again and quit again on Monday patient started vaping recently not cigarettes but she used to smoke cigarettes as well as vape in the past. REVIEW OF SYSTEMS: All other systems are negative except those mentioned in the HPI PHYSICAL EXAMINATION: GENERAL: The patient is alert and oriented x3, not in any acute distress. Obese HEENT: Pupils are round and equally reacting to light. EOMI. No scleral icterus. No conjunctival pallor. Normocephalic, atraumatic. No pharyngeal erythema. No thyromegaly. CARDIOVASCULAR: S1 and S2 present. No murmurs, rubs, or gallops. PULMONARY: Chest is clear to auscultation, no wheezing or crackles. ABDOMEN: Soft, nontender, nondistended, normoactive bowel sounds. No palpable organomegaly. MUSCULOSKELETAL: No joint swelling or deformity. EXTREMITIES: No cyanosis, clubbing, or pedal edema. NEUROLOGICAL: Gross neurological examination did not reveal any focal deficits. SKIN: No rashes. Assessment and plan -Acute COPD exacerbation improved symptoms patient will be discharged on weaning dose of steroids and Pepcid. -Type 2 diabetes mellitus with uncontrolled elevated blood sugars secondary to systemic steroids patient may have uncontrolled blood sugars at home as well but this need to be managed as an outpatient -hypokalemia potassium will be aggressively replaced secondary to hydrochlorot hiazide -Hypomagnesemia magnesium will be replaced -Hypertension -Bipolar disorder -Depression -Diabetic peripheral neuropathy for above-mentioned chronic medical problems patient can be resumed On her home medications Patient will be discharged today Past Medical History Past Medical History: Diabetes Mellitus, Hypertension Additional Past Medical History / Comment(s): Vertigo; Migraines; syncopal epsiodes in the past History of Any Multi-Drug Resistant Organisms: None Reported Past Surgical History: No Surgical Hx Reported Additional Past Surgical History / Comment(s): Oral surgery Past Psychological History: Anxiety, Bipolar, Depression Smoking Status: Former smoker Past Alcohol Use History: None Reported Past Drug Use History: None Reported Medications and Allergies Home Medications Medication Instructions Recorded Confirmed Type Oxybutynin Chloride 5 mg PO BID PRN 05/21/18 11/15/23 History Albuterol Sulfate [Ventolin HFA] 2 puff INHALATION RT-Q6H PRN 07/20/21 11/15/23 History Insulin Glargine,Hum.rec.anlog 50 unit SQ HS 07/20/21 11/15/23 History [Lantus Solostar Pen] Pregabalin [Lyrica] 150 mg PO TID PRN 07/20/21 11/15/23 History tiZANidine [Zanaflex] 4 mg PO BID PRN 07/20/21 11/15/23 History QUEtiapine [SEROquel] 100 mg PO HS 30 Days tab 07/23/21 11/15/23 Rx Butalb/APAP/Caff 50-325-40Mg 1 tab PO Q8H PRN 11/15/23 11/15/23 History [Fioricet 50-325-40] DULoxetine HCL [Cymbalta] 30 mg PO DAILY PRN 11/15/23 11/15/23 History Famotidine [Pepcid] 10 mg PO DAILY #30 tab 11/15/23 Rx Famotidine [Pepcid] 20 mg PO BID #30 tablet 11/15/23 Rx Fluticasone Propion/Salmeterol 1 inhalation PO BID #1 each 11/15/23 Rx [Advair 250-50 Diskus] HYDROcodone/APAP 10-325MG [[place] 1 tab PO BID PRN 11/15/23 11/15/23 History 10-325] Hydrocortisone Cream 1 applic TOPICAL DAILY PRN 11/15/23 11/15/23 History [Hydrocortisone 2.5% Cream] Loperamide [Imodium] 2 mg PO BID PRN 11/15/23 11/15/23 History Losartan/Hydrochlorothiazide 1 tab PO DAILY PRN 11/15/23 11/15/23 History [Hyzaar 100-12.5 Tablet] Naproxen [Naprosyn] 500 mg PO BID PRN 11/15/23 11/15/23 History Semaglutide [Ozempic] 0.25 mg SQ TH 11/15/23 11/15/23 History Tiotropium [place] [Spiriva] 18 mcg IH DAILY #1 each 11/15/23 Rx amLODIPine [Norvasc] 10 mg PO DAILY PRN 11/15/23 11/15/23 History busPIRone HCL [Buspirone HCl] 15 mg PO HS 11/15/23 11/15/23 History clonazePAM [KlonoPIN] 0.5 mg PO DAILY PRN 11/15/23 11/15/23 History methylPREDNISolone Dose Pack 4 mg PO DIRECTED #1 packet 11/15/23 Rx [Medrol Dose Pack] Allergies Allergy/AdvReac Type Severity Reaction Status Date / Time dicyclomine [From Bentyl] Allergy Lip Verified 11/15/23 11:34 Swelling gabapentin Allergy Lip Verified 11/15/23 11:34 Swelling RIGO Inhibitors AdvReac Cold Verified 11/15/23 11:34 Symptoms cephalexin [From Keflex] AdvReac Flu Verified 11/15/23 11:34 Symptoms cyclobenzaprine AdvReac Extreme Verified 11/15/23 11:34 [From Flexeril] Sedation Iodinated Contrast Media AdvReac Unknown Verified 11/15/23 11:34 [Iodinated Contrast- Oral and IV Dye] ketorolac [From Toradol] AdvReac Extreme Verified 11/15/23 11:34 Sedation metoclopramide [From Reglan] AdvReac Shivering/Gets Verified 11/15/23 11:34 Extremely Cold ondansetron AdvReac Interacts Verified 11/15/23 11:34 [From Zofran (as with hydrochloride)] Seroquel Ammonia Scent AdvReac Fainting Uncoded 11/15/23 08:55 Physical Exam Vitals: Vital Signs Temp Pulse Resp BP Pulse Ox 11/15/23 11:36 93 20 137/73 98 11/15/23 11:35 87 16 11/15/23 11:27 93 16 98 11/15/23 09:53 100 11/15/23 09:50 100 11/15/23 08:52 97.4 F L 97 24 149/70 100 Intake and Output 11/14/23 11/15/23 11/15/23 22:59 06:59 14:59 Other: Weight 136.078 kg Results CBC & Chem 7: 11/15/23 09:11 11/15/23 09:11 Labs: Abnormal Lab Results - Last 24 Hours (Table) 11/15/23 11/15/23 11/15/23 Range/Units 09:11 09:11 13:00 Sodium 136 L (137-145) mmol/L Potassium 2.8 L (3.5-5.1) mmol/L Carbon Dioxide 21 L (22-30) mmol/L Glucose 352 H (74-99) mg/dL Plasma Lactic Acid Julien 4.5 H* 3.8 H* (0.7-2.0) mmol/L Magnesium 1.4 L (1.6-2.3) mg/dL AST 49 H (14-36) U/L
--- NOTE | 2023-11-15 14:38 | P.DS ---
Providers Date of admission: 11/15/23 10:44 Attending physician: Kamar Moore Primary care physician: Bobo Monzonhven [facility] Course: Patient is a 58-year-old female came in with complaints of shortness of breath and to be in COPD exacerbation received systemic steroids and additional treatments after which patient had a significant improvement when I evaluate the patient patient does not have any significant wheezing fairly good air entry to bilateral lung loyd patient received DuoNebs will be discharged today. Patient is saturating at 98% on room on 2 L of oxygen oxygen will be discontinued will ambulate the patient if patient saturates well patient will be discharged patient had a chest x-ray which did not show any pneumonia patient also has electrolyte abnormalities including low potassium of 2.8 which is being aggressively replaced and a low magnesium of 1.4 patient takes hydrochlorothiazide along with losartan at home despite of losartan patient potassium is still low patient will be discharged on 10 mEq of potassium patient blood sugars are high secondary to systemic steroids may be noncompliant as well, patient will increase her insulin from 50 units to 70 units while on steroids patient will be discharged on a very short taper of steroids. Patient quit smoking started back again and quit again on Monday patient started vaping recently not cigarettes but she used to smoke cigarettes as well as vape in the past. PHYSICAL EXAMINATION: GENERAL: The patient is alert and oriented x3, not in any acute distress. Obese HEENT: Pupils are round and equally reacting to light. EOMI. No scleral icterus. No conjunctival pallor. Normocephalic, atraumatic. No pharyngeal erythema. No thyromegaly. CARDIOVASCULAR: S1 and S2 present. No murmurs, rubs, or gallops. PULMONARY: Chest is clear to auscultation, no wheezing or crackles. ABDOMEN: Soft, nontender, nondistended, normoactive bowel sounds. No palpable organomegaly. MUSCULOSKELETAL: No joint swelling or deformity. EXTREMITIES: No cyanosis, clubbing, or pedal edema. NEUROLOGICAL: Gross neurological examination did not reveal any focal deficits. SKIN: No rashes. Assessment and plan -Acute COPD exacerbation improved symptoms patient will be discharged on weaning dose of steroids and Pepcid. -Type 2 diabetes mellitus with uncontrolled elevated blood sugars secondary to systemic steroids patient may have uncontrolled blood sugars at home as well but this need to be managed as an outpatient -hypokalemia potassium will be aggressively replaced secondary to hydrochlorothiazide -Hypomagnesemia magnesium will be replaced -Hypertension -Bipolar disorder -Depression -Diabetic peripheral neuropathy for above-mentioned chronic medical problems patient can be resumed On her home medications Patient will be discharged today Patient Condition at Discharge: Poor Plan - Discharge Summary New Discharge Prescriptions: New methylPREDNISolone Dose Pack [Medrol Dose Pack] 4 mg PO DIRECTED #1 packet Famotidine [Pepcid] 10 mg PO DAILY #30 tab Famotidine [Pepcid] 20 mg PO BID #30 tablet Fluticasone Propion/Salmeterol [Advair 250-50 Diskus] 1 inhalation PO BID #1 each Tiotropium [place] [Spiriva] 18 mcg IH DAILY #1 each Continue Oxybutynin Chloride 5 mg PO BID PRN PRN Reason: Overactive bladder Albuterol Sulfate [Ventolin HFA] 2 puff INHALATION RT-Q6H PRN PRN Reason: Shortness Of Breath Insulin Glargine,Hum.rec.anlog [Lantus Solostar Pen] 50 unit SQ HS QUEtiapine [SEROquel] 100 mg PO HS 30 Days tab Butalb/APAP/Caff 50-325-40Mg [Fioricet 50-325-40] 1 tab PO Q8H PRN PRN Reason: Migraine Headache Naproxen [Naprosyn] 500 mg PO BID PRN PRN Reason: Pain Losartan/Hydrochlorothiazide [Hyzaar 100-12.5 Tablet] 1 tab PO DAILY PRN PRN Reason: Blood Pressure - High amLODIPine [Norvasc] 10 mg PO DAILY PRN PRN Reason: Blood Pressure - High DULoxetine HCL [Cymbalta] 30 mg PO DAILY PRN PRN Reason: NEUROPATHY busPIRone HCL 15 mg PO HS Hydrocortisone Cream [Hydrocortisone 2.5% Cream] 1 applic TOPICAL DAILY PRN PRN Reason: KENNEDY clonazePAM [KlonoPIN] 0.5 mg PO DAILY PRN PRN Reason: Anxiety/Insomnia Pregabalin [Lyrica] 150 mg PO TID PRN PRN Reason: Pain tiZANidine [Zanaflex] 4 mg PO BID PRN PRN Reason: Muscle Pain Loperamide [Imodium] 2 mg PO BID PRN PRN Reason: Diarrhea Semaglutide [Ozempic] 0.25 mg SQ TH HYDROcodone/APAP 10-325MG [[place] 10-325] 1 tab PO BID PRN PRN Reason: Pain Discharge Medication List Oxybutynin Chloride 5 mg PO BID PRN 05/21/18 [History] Albuterol Sulfate [Ventolin HFA] 2 puff INHALATION RT-Q6H PRN 07/20/21 [History] Insulin Glargine,Hum.rec.anlog [Lantus Solostar Pen] 50 unit SQ HS 07/20/21 [History] Pregabalin [Lyrica] 150 mg PO TID PRN 07/20/21 [History] tiZANidine [Zanaflex] 4 mg PO BID PRN 07/20/21 [History] QUEtiapine [SEROquel] 100 mg PO HS 30 Days tab 07/23/21 [Rx] Butalb/APAP/Caff 50-325-40Mg [Fioricet 50-325-40] 1 tab PO Q8H PRN 11/15/23 [History] DULoxetine HCL [Cymbalta] 30 mg PO DAILY PRN 11/15/23 [History] Famotidine [Pepcid] 10 mg PO DAILY #30 tab 11/15/23 [Rx] Famotidine [Pepcid] 20 mg PO BID #30 tablet 11/15/23 [Rx] Fluticasone Propion/Salmeterol [Advair 250-50 Diskus] 1 inhalation PO BID #1 each 11/15/23 [Rx] HYDROcodone/APAP 10-325MG [[place] 10-325] 1 tab PO BID PRN 11/15/23 [History] Hydrocortisone Cream [Hydrocortisone 2.5% Cream] 1 applic TOPICAL DAILY PRN 11/15/23 [History] Loperamide [Imodium] 2 mg PO BID PRN 11/15/23 [History] Losartan/Hydrochlorothiazide [Hyzaar 100-12.5 Tablet] 1 tab PO DAILY PRN 11/15/23 [History] Naproxen [Naprosyn] 500 mg PO BID PRN 11/15/23 [History] Semaglutide [Ozempic] 0.25 mg SQ TH 11/15/23 [History] Tiotropium [place] [Spiriva] 18 mcg IH DAILY #1 each 11/15/23 [Rx] amLODIPine [Norvasc] 10 mg PO DAILY PRN 11/15/23 [History] busPIRone HCL 15 mg PO HS 11/15/23 [History] clonazePAM [KlonoPIN] 0.5 mg PO DAILY PRN 11/15/23 [History] methylPREDNISolone Dose Pack [Medrol Dose Pack] 4 mg PO DIRECTED #1 packet 11/15/23 [Rx] Follow up Appointment(s)/Referral(s): Bobo Perdue MD [Primary Care Provider] - 1 Week Ambulatory/Diagnostic Orders: Basic Metabolic Panel [LAB.AMB] Time Frame: 3 Days, Location: None Selected Activity/Diet/Wound Care/Special Instructions: Increase the long-acting insulin dose to 70 units while on steroids and go back to 50 after that.
[2023-11-15] MEDS: POTASSIUM CHLORIDE ER 20 MEQ TAB.ER PO STA (16:08)
[2023-11-15 18:35] VITALS: RESP 20
[2023-11-15 18:39] VITALS: BP 190/86; PULSE 84; TEMP 98.7
[2023-11-15] MEDS: INSULIN ASPART (NovoLOG) 100 UNIT/ML VIAL SQ SCH (18:39)
== END 2023-11-15 18:40 | disposition home or self-care (01) ==
LOC: EC 08:51 → 4SSUR 10:44 → INTOOBSV 10:44
PROVIDERS: ADMIT Hospitalist; ATTEND Hospitalist
DX: J44.1 Chronic obstructive pulmonary disease with (acute) exacerbation (principal); E87.6 Hypokalemia; T50.2X5A Adverse effect of carbonic-anhydrase inhibitors, benzothiadiazides and other diuretics, initial encounter; E11.65 Type 2 diabetes mellitus with hyperglycemia; T38.0X5A Adverse effect of glucocorticoids and synthetic analogues, initial encounter; E83.42 Hypomagnesemia; E87.20 Acidosis, unspecified; J96.91 Respiratory failure, unspecified with hypoxia; I10 Essential (primary) hypertension; F31.9 Bipolar disorder, unspecified; F17.290 Nicotine dependence, other tobacco product, uncomplicated; E11.42 Type 2 diabetes mellitus with diabetic polyneuropathy; Z79.899 Other long term (current) drug therapy; Z79.4 Long term (current) use of insulin; Z79.51 Long term (current) use of inhaled steroids; Z88.1 Allergy status to other antibiotic agents; Z91.041 Radiographic dye allergy status; Z88.8 Allergy status to other drugs, medicaments and biological substances; Z91.048 Other nonmedicinal substance allergy status; Z11.52 Encounter for screening for COVID-19; Z11.59 Encounter for screening for other viral diseases
CPT/HCPCS: 96376; 96368; 96365; 96366; 96375; 99291; 36415; 94640 ×2; 93005; 83880; 80053; 83605; 83735; 84484; 85025; 85610; 85730; 87040; 87636; 71046; G0378; J0696; J3475; J3480; J2919

== ENCOUNTER 2024-05-08 16:39 | Observation (INO) | payer OTHER ==
[2024-05-08] MEDS: MORPHINE SULFATE 4 MG/ML SYRINGE IVP STA (17:31)
[2024-05-08] MEDS: SODIUM CHLORIDE 0.9% 1,000 ML IV STA ×4 (17:31→19:58)
[2024-05-08 17:38] LABS: Basophils % (A) 0 %; Eosinophils # (A) 0.3 k/uL (0-0.7); Eosinophils % (A) 2 %; Lymphocytes # (A) 1.6 k/uL (1.0-4.8); Lymphocytes % (A) 14 %; MCH 29.5 pg (25.0-35.0); MCHC 33.4 g/dL (31.0-37.0); MCV 88.4 fL (80.0-100.0); Mean Platelet Volume 9.3; Monocytes # (A) 0.5 k/uL (0-1.0); Monocytes % (A) 4 %; Neutrophils # (A) 9.2 k/uL (1.3-7.7); Neutrophils % (A) 79 %; Platelet Count 293 k/uL (150-450); RBC 4.41 m/uL (3.80-5.40); RDW 13.4 % (11.5-15.5); WBC 11.6 k/uL (3.8-10.6)
[2024-05-08 17:46] LABS: Partial Thromboplastin Time 23.1 sec (22.0-30.0); Prothrombin Time 10.8 sec (10.0-12.5)
[2024-05-08 17:50] LABS: ALT 10 U/L (4-34); AST 17 U/L (14-36); African American GFR (CKD) 35 (>60 ml/min/1.73 sqM); Albumin 3.7 g/dL (3.5-5.0); Alkaline Phosphatase 93 U/L (38-126); Amylase 38 U/L (30-110); Anion Gap 12 mmol/L; Blood Urea Nitrogen 27 mg/dL (7-17); Calcium 8.8 mg/dL (8.4-10.2); Carbon Dioxide 26 mmol/L (22-30); Chloride 97 mmol/L (98-107); Glucose 210 mg/dL (74-99); Lipase 38 U/L (23-300); Non-African American GFR(CKD) 30 (>60 ml/min/1.73 sqM); Potassium 3.2 mmol/L (3.5-5.1); Sodium 135 mmol/L (137-145); Total Bilirubin 0.5 mg/dL (0.2-1.3); Total Protein 6.6 g/dL (6.3-8.2)
--- NOTE | 2024-05-08 17:54 | ED ---
General Adult HPI - General Chief complaint: Abdominal Pain Stated complaint: NVD Time Seen by Provider: 05/08/24 17:00 Source: patient, EMS, RN notes reviewed, old records reviewed Mode of arrival: EMS Limitations: no limitations - History of Present Illness Initial comments: Patient is a 58-year-old female presents emergency department complaining of multiple days abdominal pain with diarrhea. States diarrhea got worse today. Presents for evaluation. States that the diarrhea is clear. Denies any blood in it. Denies any nausea or vomiting. History of colonoscopy with benign polyps. Denies fevers, chills, urinary complaints. No vaginal discharge or bleeding. Denies any fevers. Presents for further evaluation at this time. Eugenio luz is on [place] at home which is not helping with the pain. No history of abdominal surgeries. - Related Data Home Medications Medication Instructions Recorded Confirmed Oxybutynin Chloride 5 mg PO BID PRN 05/21/18 11/15/23 Albuterol Sulfate [Ventolin HFA] 2 puff INHALATION RT-Q6H PRN 07/20/21 11/15/23 Insulin Glargine,Hum.rec.anlog 50 unit SQ HS 07/20/21 11/15/23 [Lantus Solostar Pen] Pregabalin [Lyrica] 150 mg PO TID PRN 07/20/21 11/15/23 tiZANidine [Zanaflex] 4 mg PO BID PRN 07/20/21 11/15/23 Butalb/APAP/Caff 50-325-40Mg 1 tab PO Q8H PRN 11/15/23 11/15/23 [Fioricet 50-325-40] DULoxetine HCL [Cymbalta] 30 mg PO DAILY PRN 11/15/23 11/15/23 HYDROcodone/APAP 10-325MG [[place] 1 tab PO BID PRN 11/15/23 11/15/23 10-325] Hydrocortisone Cream 1 applic TOPICAL DAILY PRN 11/15/23 11/15/23 [Hydrocortisone 2.5% Cream] Loperamide [Imodium] 2 mg PO BID PRN 11/15/23 11/15/23 Losartan/Hydrochlorothiazide 1 tab PO DAILY PRN 11/15/23 11/15/23 [Hyzaar 100-12.5 Tablet] Naproxen [Naprosyn] 500 mg PO BID PRN 11/15/23 11/15/23 Semaglutide [Ozempic] 0.25 mg SQ TH 11/15/23 11/15/23 amLODIPine [Norvasc] 10 mg PO DAILY PRN 11/15/23 11/15/23 busPIRone HCL 15 mg PO HS 11/15/23 11/15/23 Fluticasone Propion/Salmeterol 1 puff INHALATION RT-BID 05/08/24 05/08/24 [Advair 250-50 Diskus] Omeprazole 20 mg PO DAILY 05/08/24 05/08/24 Rosuvastatin [Crestor] 10 mg PO HS 05/08/24 05/08/24 Tiotropium [place] [Spiriva] 1 cap INHALATION RT-DAILY 05/08/24 05/08/24 clonazePAM [KlonoPIN] 1 mg PO DAILY PRN 05/08/24 05/08/24 Previous Rx's Medication Instructions Recorded QUEtiapine [SEROquel] 100 mg PO HS 30 Days tab 07/23/21 Famotidine [Pepcid] 20 mg PO BID #30 tablet 11/15/23 Allergies Allergy/AdvReac Type Severity Reaction Status Date / Time dicyclomine [From Bentyl] Allergy Lip Verified 05/08/24 20:55 Swelling gabapentin Allergy Lip Verified 05/08/24 20:55 Swelling RIGO Inhibitors AdvReac Cold Verified 05/08/24 20:55 Symptoms cephalexin [From Keflex] AdvReac Flu Verified 05/08/24 20:55 Symptoms cyclobenzaprine AdvReac Extreme Verified 05/08/24 20:55 [From Flexeril] Sedation Iodinated Contrast Media AdvReac Unknown Verified 05/08/24 20:55 [Iodinated Contrast- Oral and IV Dye] ketorolac [From Toradol] AdvReac Extreme Verified 05/08/24 20:55 Sedation metoclopramide [From Reglan] AdvReac Shivering/Gets Verified 05/08/24 20:55 Extremely Cold ondansetron AdvReac Interacts Verified 05/08/24 20:55 [From Zofran (as with hydrochloride)] Seroquel Ammonia Scent AdvReac Fainting Uncoded 11/15/23 08:55 Review of Systems ROS Statement: Those systems with pertinent positive or pertinent negative responses have been documented in the HPI. Review of Systems: CONST: Denies fever EYES: Denies blurry vision ENT: Denies nasal congestion C/V: Denies Chest pain RESP: Denies shortness of breath GI: Endorses left lower quadrant abdominal pain : Denies dysuria SKIN: Denies rash. MSK: Denies joint pain. NEURO: Denies headache ROS Other: All systems not noted in ROS Statement are negative. Past Medical History Past Medical History: Diabetes Mellitus, Hypertension Additional Past Medical History / Comment(s): Vertigo; Migraines; syncopal epsiodes in the past History of Any Multi-Drug Resistant Organisms: None Reported Past Surgical History: No Surgical Hx Reported Additional Past Surgical History / Comment(s): Oral surgery Past Psychological History: Anxiety, Bipolar, Depression Smoking Status: Former smoker, Vaper Past Alcohol Use History: None Reported Past Drug Use History: None Reported General Exam - General Exam Comments Initial Comments: General: Appears in mild distress. HEAD: Normal with no signs of head trauma. EYES: PERRLA, EOMI, conjunctiva normal, no discharge. ENT: Hearing grossly intact, normal oropharynx. Dry mucous membranes. RESPIRATORY: Clear breath sounds bilaterally. No wheezes, rales, or rhonchi. C/V: Regular rate and rhythm. S1 and S2 auscultated, no edema, peripheral pulses 2+ and intact throughout ABD: Abdomen soft, nondistended. Tender to palpation in the left lower quadrant. No guarding or rebound tenderness. No peritoneal signs. EXT: Normal range of motion, no obvious deformity SKIN: No rashes or lesions observed on exposed skin. NEURO: Alert and oriented x 4. Limitations: no limitations Course Vital Signs 05/08/24 16:42 Temperature 98.6 F Pulse Rate 91 Respiratory 16 Rate Blood Pressure 110/70 O2 Sat by Pulse 95 Oximetry Medical Decision Making - Medical Decision Making Was pt. sent in by a medical professional or institution (, PA, CONDOMINIUM MANAGER, urgent care, hospital, or usp...) When possible be specific @ -No Did you speak to anyone other than the patient for history (EMS, parent, family, police, friend...)? What history was obtained from this source @ -No Did you review nursing and triage notes (agree or disagree)? Why? @ -I reviewed and agree with nursing and triage notes Were old charts reviewed (outside hosp., previous admission, EMS record, old EKG, old radiological studies, urgent care reports/EKG's, usp records)? Report findings @ -No old charts were reviewed Differential Diagnosis (chest pain, altered mental status, abdominal pain women, abdominal pain men, vaginal bleeding, weakness, fever, dyspnea, syncope, headache, dizziness, GI bleed, back pain, seizure, CVA, palpatations, mental health, musculoskeletal)? @ -Differential Abdominal Pain Women: Appendicitis, Cholecystitis, diverticulosis, ischemic bowel, pancreatitis, hepatitis, UTI, gastroenteritis, AAA, incarcerated hernia, bowel obstruction, constipation, inflammatory bowel, hepatitis, peptic ulcer disease, splenic infarction, perforated viscus, vulvitis, ovarian torsion, PID, kidney stone, placenta abruption, this is not meant to be an all-inclusive list EKG interpreted by me (3pts min.). @ -As above X-rays interpreted by me (1pt min.). @ -None done CT interpreted by me (1pt min.). @ -CT abdomen pelvis reveals loose stool throughout but no other obvious acute findings. Patient has diverticula but no evidence of diverticulitis. CBD is normal in size. U/S interpreted by me (1pt. min.). @ -None done What testing was considered but not performed or refused? (CT, X-rays, U/S, labs)? Why? @ -None What meds were considered but not given or refused? Why? @ -None Did you discuss the management of the patient with other professionals (professionals i.e. , PA, CONDOMINIUM MANAGER, lab, RT, psych nurse, social worker aide, forging die sinker, teacher, light armored vehicle officer, case aide)? Give summary @ -I discussed the admission with the admitting provider, Dr. Perdue who accepted the patient. Was smoking cessation discussed for >3mins.? @ -No Was critical care preformed (if so, how long)? @ -No Were there social determinants of health that impacted care today? How? (Homelessness, low income, unemployed, alcoholism, drug addiction, transportation, low edu. Level, literacy, decrease access to med. care, usp, rehab)? @ -No Was there de-escalation of care discussed even if they declined (Discuss DNR or withdrawal of care, Hospice)? DNR status @ -No What co-morbidities impacted this encounter? (DM, HTN, Smoking, COPD, CAD, Cancer, CVA, ARF, Chemo, Hep., AIDS, mental health diagnosis, sleep apnea, morbid obesity)? @ -None Was patient admitted / discharged? Hospital course, mention meds given and route, prescriptions, significant lab abnormalities, going to OR and other pertinent info. @ -Based on the patient's presentation and physical exam, presents emergency department complaining of left lower quadrant abdominal pain with diarrhea. Patient states she does have a contrast dye allergy. Patient be symptomatically treat with IV analgesia medications, antacids, fluids. We will obtain CT abdomen pelvis without contrast as well as abdominal laboratory studies and screen EKG. Patient was in agreement this plan. CT imaging does not reveal any obvious acute process at this time. Patient's laboratory studies remarkable for mild hypokalemia of 3.2 which was replenished as well as an MARIE with a BUN of 27 and creatinine of 1.2 which is double her baseline. Lactic acid mildly elevated 2.3. Urine is pending at time of admission. I discussed results with patient. Patient will be admitted for her MARIE. We will wait for the urine study. She was in agreement this plan. I discussed the admission with the admitting provider, Dr. Perdue who accepted the patient. Patient admitted on IV fluids. Patient's urinalysis returned after patient was admitted and showed a UTI. Pat ient started on Levaquin. Urine culture ordered and sent. Undiagnosed new problem with uncertain prognosis? @ -No Drug Therapy requiring intensive monitoring for toxicity (Heparin, Nitro, Insulin, Cardizem)? @ -No Were any procedures done? @ -No Diagnosis/symptom? @ -Abdominal pain, diarrhea, MARIE, UTI Acute, or Chronic, or Acute on Chronic? @ -Acute Uncomplicated (without systemic symptoms) or Complicated (systemic symptoms)? @ -Complicated Side effects of treatment? @ -None Exacerbation, Progression, or Severe Exacerbation] @ -No Poses a threat to life or bodily function? @ -Potentially, yes - Lab Data Result diagrams: 05/08/24 17:20 05/08/24 17:20 Lab Results 05/08/24 05/08/24 05/08/24 Range/Units 17:20 17:20 17:20 WBC 11.6 H (3.8-10.6) k/uL RBC 4.41 (3.80-5.40) m/uL Hgb 13.0 (11.4-16.0) gm/dL Hct 39.0 (34.0-46.0) % MCV 88.4 (80.0-100.0) fL MCH 29.5 (25.0-35.0) pg MCHC 33.4 (31.0-37.0) g/dL RDW 13.4 (11.5-15.5) % Plt Count 293 (150-450) k/uL MPV 9.3 Neutrophils % 79 % Lymphocytes % 14 % Monocytes % 4 % Eosinophils % 2 % Basophils % 0 % Neutrophils # 9.2 H (1.3-7.7) k/uL Lymphocytes # 1.6 (1.0-4.8) k/uL Monocytes # 0.5 (0-1.0) k/uL Eosinophils # 0.3 (0-0.7) k/uL Basophils # 0.0 (0-0.2) k/uL PT 10.8 (10.0-12.5) sec INR 1.0 (<1.2) APTT 23.1 (22.0-30.0) sec Sodium 135 L (137-145) mmol/L Potassium 3.2 L (3.5-5.1) mmol/L Chloride 97 L (98-107) mmol/L Carbon Dioxide 26 (22-30) mmol/L Anion Gap 12 mmol/L BUN 27 H (7-17) mg/dL Creatinine 1.82 H (0.52-1.04) mg/dL Est GFR (CKD-EPI)AfAm 35 (>60 ml/min/1.73 sqM) Est GFR (CKD-EPI)NonAf 30 (>60 ml/min/1.73 sqM) Glucose 210 H (74-99) mg/dL Lactic Ac Sepsis Rflx Plasma Lactic Acid Julien (0.7-2.0) mmol/L Calcium 8.8 (8.4-10.2) mg/dL Total Bilirubin 0.5 (0.2-1.3) mg/dL AST 17 (14-36) U/L ALT 10 (4-34) U/L Alkaline Phosphatase 93 (38-126) U/L Total Protein 6.6 (6.3-8.2) g/dL Albumin 3.7 (3.5-5.0) g/dL Amylase 38 (30-110) U/L Lipase 38 (23-300) U/L Urine Color Urine Appearance (Clear) Urine pH (5.0-8.0) Ur Specific [place] (1.001-1.035) Urine Protein (Negative) Urine Glucose (UA) (Negative) Urine Ketones (Negative) Urine Blood (Negative) Urine Nitrite (Negative) Urine Bilirubin (Negative) Urine Urobilinogen (<2.0) mg/dL Ur Leukocyte Esterase (Negative) Urine RBC (0-5) /hpf Urine WBC (0-5) /hpf Urine WBC Clumps (None) /hpf Ur Squamous Epith Cells (0-4) /hpf Urine Bacteria (None) /hpf Urine Mucus (None) /hpf 05/08/24 05/08/24 05/08/24 Range/Units 17:20 17:54 19:25 WBC (3.8-10.6) k/uL RBC (3.80-5.40) m/uL Hgb (11.4-16.0) gm/dL Hct (34.0-46.0) % MCV (80.0-100.0) fL MCH (25.0-35.0) pg MCHC (31.0-37.0) g/dL RDW (11.5-15.5) % Plt Count (150-450) k/uL MPV Neutrophils % % Lymphocytes % % Monocytes % % Eosinophils % % Basophils % % Neutrophils # (1.3-7.7) k/uL Lymphocytes # (1.0-4.8) k/uL Monocytes # (0-1.0) k/uL Eosinophils # (0-0.7) k/uL Basophils # (0-0.2) k/uL PT (10.0-12.5) sec INR (<1.2) APTT (22.0-30.0) sec Sodium (137-145) mmol/L Potassium (3.5-5.1) mmol/L Chloride (98-107) mmol/L Carbon Dioxide (22-30) mmol/L Anion Gap mmol/L BUN (7-17) mg/dL Creatinine (0.52-1.04) mg/dL Est GFR (CKD-EPI)AfAm (>60 ml/min/1.73 sqM) Est GFR (CKD-EPI)NonAf (>60 ml/min/1.73 sqM) Glucose (74-99) mg/dL Lactic Ac Sepsis Rflx Y Plasma Lactic Acid Julien 2.3 H* (0.7-2.0) mmol/L Calcium (8.4-10.2) mg/dL Total Bilirubin (0.2-1.3) mg/dL AST (14-36) U/L ALT (4-34) U/L Alkaline Phosphatase (38-126) U/L Total Protein (6.3-8.2) g/dL Albumin (3.5-5.0) g/dL Amylase (30-110) U/L Lipase (23-300) U/L Urine Color Yellow Urine Appearance Cloudy H (Clear) Urine pH 5.5 (5.0-8.0) Ur Specific [place] 1.016 (1.001-1.035) Urine Protein 1+ H (Negative) Urine Glucose (UA) Negative (Negative) Urine Ketones Negative (Negative) Urine Blood Negative (Negative) Urine Nitrite Negative (Negative) Urine Bilirubin Negative (Negative) Urine Urobilinogen <2.0 (<2.0) mg/dL Ur Leukocyte Esterase Large H (Negative) Urine RBC 6 H (0-5) /hpf Urine WBC >182 H (0-5) /hpf Urine WBC Clumps Many H (None) /hpf Ur Squamous Epith Cells 4 (0-4) /hpf Urine Bacteria Many H (None) /hpf Urine Mucus Rare H (None) /hpf - EKG Data -: EKG Interpreted by Me EKG Comments: 12-lead Electrocardiogram Interpretation Note EKG was reviewed and interpreted by myself. 12-lead ECG performed at 1755 is interpreted by me as revealing normal sinus rhythm at a rate of 77 beats per minute. [place] is normal. [place] interval is 166 ms, QRS duration is 88 ms, QTc is 451 ms.. There were no ST or T wave abnormalities to suggest myocardial ischemia or injury. R wave progression across the precordium was satisfactory. By my interpretation this EKG is non-diagnostic for acute ischemia. Disposition Clinical Impression: Diarrhea, Abdominal pain of unknown etiology, MARIE (acute kidney injury), UTI (urinary tract infection) Disposition: ADMITTED IP TO THIS HOSP Condition: Stable Time of Disposition: 19:25
--- NOTE | 2024-05-08 18:34 | CT ---
EXAMINATION TYPE: CT abdomen pelvis wo con DATE OF EXAM: 05/08/2024 6:24 PM COMPARISON: CT abdomen pelvis most recent from CLINICAL INDICATION: Female, 58 years old with history of LLQ abd pain, diarrhea. reaction to contras t; abd pain/diarrhea TECHNIQUE: Axial CT abdomen pelvis wo con;Sagittal and coronal reformats were created on a separate workstation. Contrast used: mL of , (none if empty) Oral contrast used: without Oral Contrast (none if empty) CT DLP: 1882.4 mGycm, Automated exposure control for dose reduction was used. FINDINGS: LOWER CHEST: Unremarkable ABDOMEN LIVER: Unremarkable GALLBLADDER AND BILE DUCTS: Gallbladder is surgically absent with mild intrahepatic and extra hepatic biliary dilatation possibly physiologic and a postcholecystectomy change. No evidence of choledochol ithiasis. Common duct dilated up to 2.0 cm which is more than normal physiology postcholecystectomy. PANCREAS: Unremarkable. SPLEEN: Unremarkable. ADRENAL GLANDS: Unremarkable. KIDNEYS AND URETERS: No evidence of hydronephrosis or renal calculus. The ureters are unremarkable. PELVIS BLADDER: No evidence for wall thickening or mass given limitations of exam. REPRODUCTIVE: Unremarkable. ABDOMEN & PELVIS STOMACH AND BOWEL: No evidence of bowel obstruction. Moderate stool in the sigmoid colon and rectum. Few scattered colonic diverticula. PERITONEUM/RETROPERITONEUM: No evidence of pneumoperitoneum or free fluid. VASCULATURE: No evidence of aortic aneurysm. MUSCULOSKELETAL: No acute osseous abnormalities LYMPH NODES: No gross evidence for lymphadenopathy. SOFT TISSUE/ABDOMINAL WALL: Fat-containing umbilical hernia. Diastasis of the rectus abdominis. IMPRESSION: Moderate stool in the rectum and sigmoid colon. No evidence for acute intra-abdominal process. Few scattered colonic diverticula. Dilation of the common bile duct up to 2.0 cm which is more than would be expected for postcholecyste ctomy changes. Consider evaluation with MRCP if this concern for choledocholithiasis or obstruction. [facility], , 05/08/2024 6:32 PM
[2024-05-08] MEDS ORDERED: NALOXONE 0.4 MG/ML 1 ML VIAL IV PRN (19:32)
[2024-05-08 19:47] LABS: Appearance,Urine Cloudy (Clear); Bacteria,Urine Many /hpf; Bilirubin,Urine Negative (Negative); Blood,Urine Negative (Negative); Color,Urine Yellow; Glucose,Urine (UA) Negative (Negative); Ketones,Urine Negative (Negative); Leukocyte Esterase,Urine Large (Negative); Mucus,Urine Rare /hpf; Nitrite,Urine Negative (Negative); PH, Urine 5.5 (5.0-8.0); Protein,Urine 1+ (Negative); RBC,Urine 6 /hpf (0-5); Specific Gravity,Urine 1.016 (1.001-1.035); Squamous Epithelial Cell,Urine 4 /hpf (0-4); Urobilinogen,Urine <2.0 mg/dL (<2.0); WBC,Urine >182 /hpf (0-5)
[2024-05-08] MEDS: POTASSIUM CHLORIDE ER 20 MEQ TAB.ER PO STA (19:59)
[2024-05-08 21:57] LABS: Glucose,Whole Blood 168 mg/dL (70-110)
[2024-05-08] MEDS: LEVOFLOXACIN 500MG-D5W PMX 500 MG in DEXTROSE/WATER 1 100ML.BAG IVPB SCH (23:02)
[2024-05-08] MEDS: HEPARIN SODIUM,PORCINE 5,000 UNIT/ML 1 ML VIAL SQ SCH (23:09)
[2024-05-09 06:07] LABS: Glucose,Whole Blood 140 mg/dL (70-110)
[2024-05-09 10:49] LABS: Basophils # (A) 0.02 X 10*3/uL (0.00-0.10); Basophils % (A) 0.2 %; Eosinophils # (A) 0.25 X 10*3/uL (0.04-0.35); Eosinophils % (A) 2.8 %; HGB 11.2 g/dL (12.0-15.0); Lymphocytes # (A) 1.92 X 10*3/uL (0.90-5.00); Lymphocytes % (A) 21.6 %; MCH 29.2 pg (27.0-32.0); MCHC 32.9 g/dL (32.0-37.0); MCV 88.8 FL (80.0-97.0); Mean Platelet Volume 11.3 FL (9.5-12.2); Monocytes % (A) 6.7 %; NRBC Per 100 WBC 0 X 10*3/uL (0.00-0.01); Neutrophils # (A) 6.07 X 10*3/uL (1.80-7.70); Neutrophils % (A) 68.3 %; Platelet Count 265 X 10*3/uL (140-440); RBC 3.83 X 10*6/uL (4.10-5.20); RDW 13.7 % (11.5-14.5)
[2024-05-09 11:01] LABS: ALT 7 U/L (8-44); AST 16 U/L (13-35); Albumin 3.4 g/dL (3.8-4.9); Albumin/Globulin Ratio 1.31 Ratio (1.60-3.17); Alkaline Phosphatase 76 U/L (41-126); BUN/Creat Ratio 13.94 Ratio (12.00-20.00); Blood Urea Nitrogen 23.7 mg/dL (9.0-27.0); Calcium 8.5 mg/dL (8.7-10.3); Carbon Dioxide 23.1 mmol/L (21.6-31.8); Chloride 104 mmol/L (96-109); Globulin 2.6 g/dL (1.6-3.3); Glucose 131 mg/dL (70-110); Potassium 3.8 mmol/L (3.5-5.5); Sodium 141 mmol/L (135-145); Total Bilirubin 0.3 mg/dL (0.3-1.2)
[2024-05-09 11:25] LABS: Basophils % (A) 0 %; Eosinophils # (A) 0.2 k/uL (0-0.7); Eosinophils % (A) 2 %; HCT 35.2 % (34.0-46.0); HGB 11.5 gm/dL (11.4-16.0); Lymphocytes # (A) 1.3 k/uL (1.0-4.8); Lymphocytes % (A) 17 %; MCHC 32.8 g/dL (31.0-37.0); MCV 91.3 fL (80.0-100.0); Mean Platelet Volume 8.7; Monocytes # (A) 0.3 k/uL (0-1.0); Monocytes % (A) 4 %; Neutrophils % (A) 76 %; Platelet Count 269 k/uL (150-450); RBC 3.85 m/uL (3.80-5.40); RDW 13.7 % (11.5-15.5); WBC 7.9 k/uL (3.8-10.6)
[2024-05-09] MEDS: DEXTROSE 5%-0.45% NACL 1,000 ML IV SCH (11:28)
[2024-05-09 12:01] LABS: ALT 12 U/L (4-34); AST 24 U/L (14-36); African American GFR (CKD) 42 (>60 ml/min/1.73 sqM); Albumin 3.3 g/dL (3.5-5.0); Albumin/Globulin Ratio 1.2; Alkaline Phosphatase 74 U/L (38-126); Anion Gap 12 mmol/L; Blood Urea Nitrogen 24 mg/dL (7-17); Calcium 8.8 mg/dL (8.4-10.2); Carbon Dioxide 21 mmol/L (22-30); Chloride 104 mmol/L (98-107); Globulin 2.7 g/dL; Glucose 210 mg/dL (74-99); Non-African American GFR(CKD) 37 (>60 ml/min/1.73 sqM); Potassium 3.9 mmol/L (3.5-5.1); Sodium 137 mmol/L (137-145); Total Bilirubin 0.3 mg/dL (0.2-1.3)
[2024-05-09 12:27] LABS: Glucose,Whole Blood 224 mg/dL (70-110)
[2024-05-09] MEDS ORDERED: ALBUTEROL NEBULIZED 2.5 MG/3 ML INHALATION PRN (15:05)
[2024-05-09] MEDS ORDERED: LOPERAMIDE 2 MG CAP PO PRN (15:05)
[2024-05-09] MEDS: MORPHINE SULFATE 4 MG/ML SYRINGE IV PRN (16:21)
[2024-05-09 17:45] LABS: Glucose,Whole Blood 183 mg/dL (70-110)
[2024-05-09 20:08] LABS: Glucose,Whole Blood 167 mg/dL (70-110)
[2024-05-09 20:10] LABS: Appearance,Urine Cloudy (Clear); Bacteria,Urine Few /hpf; Bilirubin,Urine Negative (Negative); Blood,Urine Negative (Negative); Color,Urine Light Yellow; Glucose,Urine (UA) Negative (Negative); Ketones,Urine Negative (Negative); Leukocyte Esterase,Urine Large (Negative); Mucus,Urine Rare /hpf; Nitrite,Urine Negative (Negative); Protein,Urine Negative (Negative); RBC,Urine 4 /hpf (0-5); Specific Gravity,Urine 1.011 (1.001-1.035); Squamous Epithelial Cell,Urine <1 /hpf (0-4); Urobilinogen,Urine <2.0 mg/dL (<2.0); WBC,Urine >182 /hpf (0-5)
[2024-05-09] MEDS: FAMOTIDINE 20 MG TAB PO SCH (21:59)
[2024-05-09] MEDS: QUEtiapine 100 MG TAB PO SCH (21:59)
[2024-05-09] MEDS: INSULIN DETEMIR (LEVEMIR) 100 UNIT/ML SYR SQ SCH (21:59)
[2024-05-09] MEDS: ACETAMINOPHEN TAB 325 MG TAB PO PRN (22:05)
[2024-05-10 05:48] LABS: Glucose,Whole Blood 119 mg/dL (70-110)
[2024-05-10] MEDS: PANTOPRAZOLE 40 MG TABLET PO SCH (06:51)
[2024-05-10] MEDS ORDERED: TIOTROPIUM 2.5 MCG INHALER INHALATION SCH (08:00)
[2024-05-10 08:52] LABS: BUN/Creat Ratio 13.92 Ratio (12.00-20.00); Blood Urea Nitrogen 16.7 mg/dL (9.0-27.0); Calcium 8.8 mg/dL (8.7-10.3); Carbon Dioxide 21.8 mmol/L (21.6-31.8); Chloride 105 mmol/L (96-109); Glucose 131 mg/dL (70-110); Magnesium 1.6 mg/dL (1.5-2.4); Potassium 3.6 mmol/L (3.5-5.5); Sodium 141 mmol/L (135-145)
[2024-05-10 10:38] VITALS: BP 105/62; PULSE 66; RESP 16; TEMP 98.3
--- NOTE | 2024-05-10 10:56 | US ---
EXAMINATION TYPE: US abdomen complete DATE OF EXAM: 05/10/2024 COMPARISON: CT: 05/08/24 CLINICAL INDICATION: Female, 58 years old with history of CKD; CKD TECHNIQUE: Grayscale and color Doppler imaging of the abdomen was performed. FINDINGS: EXAM MEASUREMENTS: Liver Length: 19.6 cm. Normal less than 15.5 cm Gallbladder Wall: Surgically absent CBD: 1.0 cm, color Doppler imaging was utilized to isolate the common bile duct for measurement. Spleen: 16.5 cm. Normal less than 12.5 cm. Right Kidney: 13.3 x 6.0 x 6.1 cm Left Kidney: 11.9 x 5.8 x 5.6 cm VINE PRUNER NOTES: Pancreas: Obscured by bowel gas Liver: Enlarged. No dilated ducts, masses or cysts. Gallbladder: Surgically absent Evidence for sonographic Mcintyre's sign: No CBD: wnl Spleen: enlarged Right Kidney: wnl, No hydronephrosis, calculi or masses seen Left Kidney: wnl, No hydronephrosis, calculi or masses seen Upper IVC: wnl Abd Aorta: Obscured by overlying bowel gas IMPRESSION: 1. Splenomegaly 2. Hepatomegaly [facility], Workstation: [facility], 05/10/2024 10:54 AM
--- NOTE | 2024-05-10 11:15 | P.NPCON ---
History of Present Illness - Reason for Consult acute renal failure - History of Present Illness Reason for consultation: Acute kidney injury History of present illness: Patient is a 58-year-old female seen in renal consultation for acute kidney injury. Patient came to the hospital due to abdominal discomfort and diarrhea which began Monday. She denies any vomiting. Patient states now she is only having soft bowel movements with no major diarrhea. She is currently on a clear liquid diet. She denies use of nonsteroidals. No gross hematuria or dysuria. She does have history of diabetes. Denies history of coronary artery disease. She was on losartan as well as thiazide diuretic which are currently held. She is currently receiving IV fluids with half-normal saline. Renal function has been improving with creatinine 1.82 on admission and is down to 1.2 today. Hemodynamically stable. Vital signs are stable. General: No acute distress. HEENT: Head exam is unremarkable. LUNGS: No audible rhonchi or wheezes. HEART: Rate and Rhythm are regular. ABDOMEN: Nontender. EXTREMITITES: No edema. Past Medical History Past Medical History: Diabetes Mellitus, Hypertension Additional Past Medical History / Comment(s): Vertigo; Migraines; syncopal epsiodes in the past History of Any Multi-Drug Resistant Organisms: None Reported Past Surgical History: No Surgical Hx Reported Additional Past Surgical History / Comment(s): Oral surgery Past Psychological History: Anxiety, Bipolar, Depression Smoking Status: Former smoker Past Alcohol Use History: None Reported Past Drug Use History: None Reported - Past Family History Father Family Medical History: AICD/Pacemaker, Diabetes Mellitus Mother Family Medical History: Diabetes Mellitus Medications and Allergies Home Medications Medication Instructions Recorded Confirmed Type Oxybutynin Chloride 5 mg PO BID PRN 05/21/18 05/08/24 History Albuterol Sulfate [Ventolin HFA] 2 puff INHALATION RT-Q6H PRN 07/20/21 05/08/24 History Insulin Glargine,Hum.rec.anlog 50 unit SQ HS 07/20/21 05/08/24 History [Lantus Solostar Pen] Pregabalin [Lyrica] 150 mg PO TID PRN 07/20/21 05/08/24 History tiZANidine [Zanaflex] 4 mg PO BID PRN 07/20/21 05/08/24 History QUEtiapine [SEROquel] 100 mg PO HS 30 Days tab 07/23/21 05/08/24 Rx Butalb/APAP/Caff 50-325-40Mg 1 tab PO Q8H PRN 11/15/23 05/08/24 History [Fioricet 50-325-40] DULoxetine HCL [Cymbalta] 30 mg PO DAILY PRN 11/15/23 05/08/24 History Famotidine [Pepcid] 20 mg PO BID #30 tablet 11/15/23 05/08/24 Rx HYDROcodone/APAP 10-325MG [Thompson 1 tab PO BID PRN 11/15/23 05/08/24 History 10-325] Hydrocortisone Cream 1 applic TOPICAL DAILY PRN 11/15/23 05/08/24 History [Hydrocortisone 2.5% Cream] Loperamide [Imodium] 2 mg PO BID PRN 11/15/23 05/08/24 History Losartan/Hydrochlorothiazide 1 tab PO DAILY PRN 11/15/23 05/08/24 History [Hyzaar 100-12.5 Tablet] Naproxen [Naprosyn] 500 mg PO BID PRN 11/15/23 05/08/24 History Semaglutide [Ozempic] 0.25 mg SQ TH 11/15/23 05/08/24 History amLODIPine [Norvasc] 10 mg PO DAILY PRN 11/15/23 05/08/24 History busPIRone HCL 15 mg PO BID 11/15/23 05/08/24 History Fluticasone Propion/Salmeterol 1 puff INHALATION RT-BID 05/08/24 05/08/24 History [Advair 250-50 Diskus] Omeprazole 20 mg PO DAILY 05/08/24 05/08/24 History Rosuvastatin [Crestor] 10 mg PO HS 05/08/24 05/08/24 History Tiotropium [place] [Spiriva] 1 cap INHALATION RT-DAILY 05/08/24 05/08/24 History clonazePAM [KlonoPIN] 1 mg PO DAILY PRN 05/08/24 05/08/24 History Allergies Allergy/AdvReac Type Severity Reaction Status Date / Time dicyclomine [From Bentyl] Allergy Lip Verified 05/08/24 20:55 Swelling gabapentin Allergy Lip Verified 05/08/24 20:55 Swelling RIGO Inhibitors AdvReac Cold Verified 05/08/24 20:55 Symptoms cephalexin [From Keflex] AdvReac Flu Verified 05/08/24 20:55 Symptoms cyclobenzaprine AdvReac Extreme Verified 05/08/24 20:55 [From Flexeril] Sedation Iodinated Contrast Media AdvReac Unknown Verified 05/08/24 20:55 [Iodinated Contrast- Oral and IV Dye] ketorolac [From Toradol] AdvReac Extreme Verified 05/08/24 20:55 Sedation metoclopramide [From Reglan] AdvReac Shivering/Gets Verified 05/08/24 20:55 Extremely Cold ondansetron AdvReac Interacts Verified 05/08/24 20:55 [From Zofran (as with hydrochloride)] Seroquel Ammonia Scent AdvReac Fainting Uncoded 11/15/23 08:55 Physical Exam Vitals: Vital Signs Temp Pulse Resp BP Pulse Ox 05/10/24 07:00 98.3 F 66 16 105/62 95 05/10/24 02:00 98.2 F 78 17 127/84 94 L 05/09/24 19:51 98.4 F 66 18 119/75 96 05/09/24 15:00 98.7 F 69 17 121/72 98 Intake and Output 05/09/24 05/10/24 05/10/24 22:59 06:59 14:59 Other: Voiding Method Toilet Toilet # Voids 3 4 Results - Lab Results Most recent lab results Calcium 8.8 mg/dL (8.7-10.3) 05/10/24 05:20 Magnesium 1.6 mg/dL (1.5-2.4) 05/10/24 05:20 05/09/24 10:35 05/10/24 05:20 Assessment and Plan Plan: Assessment: 1. Acute kidney injury secondary to vasomotor nephropathy secondary to hypovolemia and further worsen with the use of losartan and hydrochlorothiazide. Creatinine 1.82 on admission and is 1.2 today. Creatinine 0.9 in October 2023. No hydronephrosis noted on imaging. No proteinuria on UA. 2. UTI on antibiotics. 3. Diabetes mellitus. 4. Benign hypertension. Controlled. Plan: Maintain half-normal saline. Encouraged oral intake. Avoid nephrotoxins. Continue to monitor renal function and urine output. Continue to hold antihypertensives. Thank you for the consultation. I will continue to follow the patient with you during her hospital stay.
[2024-05-10] MEDS ORDERED: MAGNESIUM SULFATE-D5W PMX 1 GM in DEXTROSE/WATER 1 100ML.BAG IVPB SCH (12:00)
[2024-05-10] MEDS ORDERED: LEVOFLOXACIN 500 MG TAB PO SCH (21:00)
--- NOTE | 2024-05-12 02:35 | HP ---
HISTORY AND PHYSICAL CHIEF COMPLAINT: Viral gastroenteritis with nausea, vomiting, and diarrhea and acute kidney injury. HISTORY OF PRESENT ILLNESS: This is another admission for this 58-year-old female. She started to develop nausea and vomiting with diarrhea and became more and more dehydrated. She came to the emergency room where she was also found to have elevation of her BUN and creatinine. She has had no hematemesis, melena, hematochezia, acute abdominal pain, etc. REVIEW OF SYSTEMS: Otherwise unremarkable. Past medical history, family history, and personal and social histories were all otherwise unremarkable or noncontributory. PHYSICAL EXAMINATION: VITAL SIGNS: Normal. HEAD, EARS, EYES, NOSE, MOUTH, AND THROAT: Normal. CHEST: Clear. CARDIAC: Normal. ABDOMEN: Protuberant, soft, and nontender. Bowel sounds are hyperactive. EXTREMITIES: Normal. NEUROLOGICAL: She is intact. GENERAL: She is dehydrated. IMPRESSION: She is admitted to the hospital with diagnoses of: 1. Viral gastroenteritis. 2. Dehydration. 3. Acute kidney injury. PLAN: 1. Bedrest. 2. IV fluids. 3. Rehydrate. 4. Antiemetics. 5. Antidiarrheals. MMODL / IJN: [id number] /
--- NOTE | 2024-05-12 03:05 | PN ---
PROGRESS NOTE DATE OF SERVICE: 05/09/2024 CHIEF COMPLAINT: Gastroenteritis with dehydration and kidney injury. HISTORY OF PRESENT ILLNESS: This lady is a little better. She is nauseated, but not vomiting. She has no diarrhea. PHYSICAL EXAM: VITAL SIGNS: Are normal. CHEST: Clear. CARDIAC: Normal. ABDOMEN: Soft and nontender. IMPRESSION: 1. Viral gastroenteritis. 2. Dehydration. 3. Acute kidney injury. PLAN: Repeat laboratory studies and continue with IV fluids. MMODL / IJN: [id number] /
--- NOTE | 2024-05-12 04:15 | DS ---
DISCHARGE SUMMARY CHIEF COMPLAINT: Nausea, vomiting, diarrhea, dehydration, and acute kidney injury. HISTORY OF PRESENT ILLNESS AND PHYSICAL EXAMINATION: Details of this lady's history and physical can be found in the initial workup. LABORATORY STUDIES: While she was in the hospital, she had laboratory studies, details of which can be found in the laboratory section of her chart. COURSE IN THE HOSPITAL: After admission, she was placed on bedrest and started on intravenous fluids and antiemetics. As she was rehydrated, her kidney function improved. She was doing well, and it was felt that she could be discharged on the , and she will follow up in the office in several days. FINAL DIAGNOSES: 1. Gastroenteritis with nausea and vomiting as well as diarrhea. 2. Dehydration. 3. Acute kidney injury. OPERATIONS: None. CONSULTATIONS: None. CONDITION: She is improved. KD / NAVARRO: [id number] /
== END 2024-05-10 13:28 | disposition home or self-care (01) ==
LOC: EC 16:39 → 6NMEDSUR 19:37
PROVIDERS: ADMIT Family Medicine; ATTEND Family Medicine
DX: A08.4 Viral intestinal infection, unspecified (principal); E86.0 Dehydration; N17.0 Acute kidney failure with tubular necrosis; E86.1 Hypovolemia; N39.0 Urinary tract infection, site not specified; E11.9 Type 2 diabetes mellitus without complications; F31.9 Bipolar disorder, unspecified; I10 Essential (primary) hypertension; F41.9 Anxiety disorder, unspecified; Z79.899 Other long term (current) drug therapy; Z87.891 Personal history of nicotine dependence
CPT/HCPCS: 96376; 96365; 96366; 96372 ×3; 96361; 96375; 99285; 36415; 93005; 80053 ×2; 80048; 82150; 83605; 83690; 83735; 85025 ×2; 85610; 85730; 81001 ×2; 87086; 76700; 74176; G0378 ×3; J2270 ×2; J1644 ×3; J1956 ×2

== ENCOUNTER → 2024-11-15 | Outpatient (CLI) | payer OTHER ==
--- NOTE | 2024-11-27 09:05 | MM ---
Reason for Exam: Screening (asymptomatic). Last mammogram was performed 1 year(s) and 5 month(s) ago. Patient History: Menarche at age 13. Patient has no children. Postmenopausal. Maternal cousin had breast cancer, age 55. Risk Values: Lela 5 year model risk: 1.5%. NCI Lifetime model risk: 8.3%. Prior Study Comparison: 05/17/2017 Bilateral Screening Mammogram, [facility]. 12/29/2021 Bilateral MG 3D screening mammo w/cad, [facility]. 06/01/2023 Bilateral MG 3D screening mammo w/cad, [facility]. Tissue Density: The breasts are almost entirely fatty. Findings: Analyzed By CAD. Right breast: There is no suspicious group of microcalcifications or new suspicious mass. Left breast: There is no suspicious group of microcalcifications or new suspicious mass. Overall Assessment: Negative, BI-RAD 1 Management: Screening Mammogram of both breasts in [address] [facility] will attempt to contact patient to return for supplemental views and ultrasound if indicated. Patient should continue monthly self-breast exams. A clinical breast exam by your physician is recommended on an annual basis. This exam should not preclude additional follow-up of suspicious palpable abnormalities. Note on Lela scores and lifetime risk: 1. A Lela score greater than 3% is considered moderate risk. If this is the case, consider specialist referral to assess eligibility for a risk reducing agent. 2. If overall lifetime risk for the development of breast cancer is 20% or higher, the patient may qualify for future screening with alternating mammogram and breast MRI. [facility], , 11/15/2024 11:50 AM. Electronically signed and approved by: Andrae Dinh DO
== END | disposition home or self-care (01) ==
LOC: RADMAMWWP 11:33
PROVIDERS: ATTEND Family Medicine
DX: Z12.31 Encounter for screening mammogram for malignant neoplasm of breast
CPT/HCPCS: 77067